=== PATIENT | female | born 1940 | race Caucasian/White ===

== ENCOUNTER → 2018-01-05 | Outpatient (CLI) | payer MEDICARE, OTHER ==
[2014-10-05 17:07] VITALS: BMI 25.4
[~2018-01-05] MED LIST: ACET-2031 PO; ADV230RPT INH; ALBU8.5H IH; ALPR-429 PO; ALPR-460 PO; AMLO-104 PO; AMLO-105 PO; AZIT-17 PO; BENA20TA3 PO; CALC-10 PO; CALC-488 PO; CALC500T6 PO; ESOM40CA42 PO; FLUO-202 PO; FLUT1DIS28 IH; GUAI600T57 PO; IPRA3AMP21 IH; IPRA4AER IH; LEVO-3 PO; LEVO-85 PO; LEVO100T95 PO; LEVO750T44 PO; MULT-865 PO; MULT-885 PO; OLME1TAB57 PO; OLME1TAB60 PO; OXYGENHOME INH; PRED-1 PO; PRED20TA6 PO; Sucralfate PO; TIO18R INH; TRIA-20 PO; areds; occuvite PO
[2018-01-05 12:27] LABS: PLATELET COUNT, AUTOMATED 233 K/uL (150-450)
== END ==
LOC: LAB 11:49
PROVIDERS: ATTEND Emergency Medicine
DX: D72.821 Monocytosis (symptomatic) (principal); E78.5 Hyperlipidemia, unspecified; E21.3 Hyperparathyroidism, unspecified; E83.52 Hypercalcemia; I12.9 Hypertensive chronic kidney disease with stage 1 through stage 4 chronic kidney disease, or unspecified chronic kidney disease; N18.3 Chronic kidney disease, stage 3 (moderate)
CPT/HCPCS: 36415; 82306; 82310; 82374; 82435; 82465; 82565; 82947; 83718; 83970; 84132; 84295; 84478; 84520; 85025

== ENCOUNTER → 2018-01-16 | Outpatient (CLI) | payer MEDICARE, OTHER ==
[2014-10-05 17:07] VITALS: BMI 25.4
[~2018-01-16] MED LIST changes: +UMEC62.5 INH
--- NOTE | 2018-01-16 12:13 | RADIOLOGY IMAGING REPORT ---
FACILITY: [facility] PATIENT NAME: Leigh De La Rosa : 1940 MR: [id number] V: [id number] EXAM DATE: ORDERING PHYSICIAN: GRACE TERRAZAS TECHNOLOGIST: Location: [facility] Patient: Leigh De La Rosa : 1940 Visit/Account:[id number] Date of Sevice: 01/16/2018 DEXA Scan Clinical history: Postmenopausal estrogen deficiency. Comparison: None available. LUMBAR SPINE: The bone mineral density (BMD) measured from L2 and L4 correlates with a Z-score 6.6 and a T-score of 5.1 which is Normal as defined by the World Health Organization. The corresponding risk of fracture in the lumbar spine is Not increased compared with a young adult reference population. HIP: Bone mineral density (BMD) measured in the Left total hip region correlates with a Z-score 1.7 and a T-score of 0.1 which is Normal as defined by the World Health Organization. The corresponding risk o f fracture in the hip is Not increased compared with a young adult reference population. T score le ft femoral neck -0.2 Bone mineral density (BMD) measured in the Femoral Neck region measures 1.011 g/cm2. Impression: 1. Lumbar spine: Normal. 2. Left Hip: Normal. 3. Femoral Neck: Bone Mineral Density is 1.011 g/cm2 The next DEXA scan of this patient should include the following sites: L1-L4 and the left hip. FRAX? WHO Fracture Risk Assessment Tool link: <http://www.shef.ac.uk/FRAX/tool.jsp?locationValue=9> PLEASE NOTE: 1) The World Health Organization defines low BMD as follows: T-score Normal > -1 Osteopenia < -1 and > -2.5 Osteoporosis < -2.5 without fractures Established osteoporosis < -2.5 with fractures 2) In general, you may wish to consider: Diagnosis Treatment Follow-up DEXA Normal BMD Prevention 2-3 years Osteopenia Prevention/therapy 1-2 years Osteoporosis Therapy Yearly 3) Fracture risk estimated from the T-score is more accurate for vertebral fractures (often spontane ous) than for hip fractures. Report Dictated By: Sharri Phillips MD at 01/16/2018 12:07 PM Report E-Signed By: Sharri Phillips MD at 01/16/2018 12:08 PM WSN:[email or web address]
== END ==
LOC: RAD 06:53
PROVIDERS: ATTEND Emergency Medicine
DX: Z13.820 Encounter for screening for osteoporosis (principal); Z78.0 Asymptomatic menopausal state
CPT/HCPCS: 77080

== ENCOUNTER → 2018-01-26 | Outpatient (CLI) | payer MEDICARE, OTHER ==
[2014-10-05 17:07] VITALS: BMI 25.4
[~2018-01-26] MED LIST changes: +BENA40TA52 PO
== END ==
LOC: LAB 11:34
PROVIDERS: ATTEND Emergency Medicine
DX: Z86.39 Personal history of other endocrine, nutritional and metabolic disease (principal)
CPT/HCPCS: 36415; 82310

== ENCOUNTER 2018-02-26 16:52 | Inpatient (IN) | payer MEDICARE, OTHER ==
[~2018-02-26] VITALS: Ht 162.6 cm; Wt 83.0 kg
[~2018-02-26 16:52] MED LIST changes: -VIT1CAPS34 PO
--- NOTE | 2018-02-26 17:20 | ER Report ---
History and Physical Time Seen By MD: 17:19 Hx. of Stated Complaint: PATIENT WAS SEEN OFFICE TODAY FOR REGULAR CHECK-UP, PATIET HAS HAD INCREASED SHORTNESS OF BREATH, THEY MAYA BLOOD AND HER TROPONIN WAS ELEVATED, FIRST ONE AT 1100 WAS .044, THEN THEY REDREW IT AT 1512 AND IT WAS 0.046. THEY DID A CTA LOOKING FOR PE, BUT IT WAS NEGATIVE WELL. PT WAS SENT OVER DUE TO ELEVATED TROPONIN. HPI/ROS CHIEF COMPLAINT: Shortness of breath, indeterminate troponin HISTORY OF PRESENT ILLNESS: 77-year-old female patient possessed emergency room with complaint of shortness of breath and indeterminate troponins. Patient was seen by her primary care provider today for complaint of shortness of breath. She states is been going on for the past 4 months. She states seemed to improve when she was in [place], however since she's returned it has worsened. Patient denies any fevers, chills, nausea, vomiting or diarrhea. When she was seen by her primary care provider today she did lab work, CBC, CMP, d-dimer, troponin. D -dimer came back at 1.5, troponin was 0.044. CT pulmonary angiogram and was done which was negative, EKG showed no significant change, the results of the pulmonary angiogram showed no acute cardiopulmonary processes, no pulmonary emboli. Patient was referred to the emergency room for further evaluation. REVIEW OF SYSTEMS: Respiratory: As noted above Cardiovascular: No chest pain, no palpitations. Gastrointestinal: No vomiting, no abdominal pain. Musculoskeletal: No back pain. Allergies: Coded Allergies: NSAIDS (Non-Steroidal Anti-Inflamma (Verified Adverse Reaction, Unknown, Pt does not take NSAIDS, 02/26/18) PT HAS HISTORY OF GASTRIC ULCERS. Home Meds Active Scripts Benazepril Hcl (BENAZEPRIL HCL) 40 Mg Tablet, 40 MG PO QDAY, #5 TAB 0 Refills Prov:GRACE TERRAZAS MD 02/25/18 Fluoxetine Hcl (PROZAC) 20 Mg Capsule, 20 MG PO QDAY, #90 CAPSULE 1 Refill Prov:GRACE TERRAZAS MD 02/03/18 Alprazolam (ALPRAZOLAM) 0.5 Mg Tab.rapdis, 0.5 MG PO QAM for Anxiety MDD .5 mg for 60 Days, #60 TAB Prov:GRACE TERRAZAS MD 01/20/18 Umeclidinium [place] (Incruse Ellipta) 62.5 Mcg Blst.w.dev, 1 INH INH DAILY, #1 INH 11 Refills Prov:GRACE TERRAZAS MD 01/12/18 Albuterol Sulfate 90 Mcg/Act (PROAIR HFA 90 MCG/ACT) 8.5 Gm Hfa.aer.ad, 2 PUFF IH Q4-6H, #1 INHALER 11 Refills Prov:GRACE TERRAZAS MD 01/05/18 Fluticasone/Salmeterol (ADVAIR 250-50 DISKUS) 1 Each Disk.w.dev, 1 PUFF IH BID, #3 INH 3 Refills Prov:GRACE TERRAZAS MD 01/05/18 Reported Medications Vit A/Vit C/Vit E/Zinc/Copper (PRESERVISION AREDS SOFTGEL) 1 Each Capsule, 1 EACH PO DAILY, CAPSULE 02/26/18 Oxygen (OXYGEN) Inha, 2 L INH, L 11/21/17 Levothyroxine Sodium (LEVOTHYROXINE SODIUM) 100 Mcg Tablet, 100 MCG PO QDAY, TAB 06/04/17 Discontinued Reported Medications [areds] No Conflict Check 11/21/17 Multivitamin (DAILY MULTIPLE VITAMIN) 1 Each Tablet, 1 TAB PO DAILY 06/04/17 Past Medical/Surgical History Patient has a past medical history of hypertension, oxygen night, pneumonia, ulcers, GI bleed, arthritis, back pain, hypothyroidism, alcohol use, depression , cancer, radiation treatment for cancer. Patient has surgical history of appendectomy, hysterectomy, tubal ligation, tonsillectomy, lumpectomy, parathyroidectomy. Reviewed Nurses Notes: Yes Hx Smoking: Yes Smoking Status: Current: Every Day Smoker, Current: Some Days Smoker Exposure to Second Hand Smoke?: No Hx Substance Use Disorder: No Hx Alcohol Use: Yes Constitutional Vital Sign - Last 24 Hours 02/26/18 02/26/18 02/26/18 02/26/18 17:03 17:07 17:08 17:19 Pulse 105 100 Resp 28 B/P (MAP) 167/109 183/90 (121) Pulse Ox 94 95 O2 Flow Rate 2.0 02/26/18 02/26/18 02/26/18 02/26/18 17:22 17:30 17:37 17:45 Pulse 87 80 B/P (MAP) 179/90 (119) 175/89 (117) Pulse Ox 91 92 02/26/18 02/26/18 02/26/18 02/26/18 17:52 18:00 18:07 18:15 Pulse 84 82 B/P (MAP) 176/93 (120) 175/90 (118) Pulse Ox 92 92 02/26/18 02/26/18 02/26/18 02/26/18 18:30 18:37 18:45 18:50 Pulse 85 81 B/P (MAP) 181/95 (123) 183/98 (126) Pulse Ox 94 94 02/26/18 02/26/18 02/26/18 02/26/18 19:00 19:20 19:35 19:50 Pulse 90 82 81 B/P (MAP) 192/108 (136) Pulse Ox 91 93 94 02/26/18 02/26/18 19:55 20:00 Pulse 80 81 B/P (MAP) ???/??? (1665) Pulse Ox 93 92 Physical Exam General Appearance: The patient is alert, has no immediate need for airway protection and no current signs of toxicity. Respiratory: Chest is non tender, lungs are clear to auscultation. Cardiac: regular rate and rhythm Gastrointestinal: Abdomen is soft and non tender, no masses, bowel sounds normal. Musculoskeletal: Neck: Neck is supple and non tender. Extremities have full range of motion and are non tender. Skin: No rashes or lesions. DIFFERENTIAL DIAGNOSIS: After history and physical exam differential diagnosis was considered for shortness of breath including but not limited to pulmonary infectious process, COPD, asthma, pulmonary embolus and congestive heart failure. Medical Decision Making Data Points Laboratory Hematology Test 02/26/18 17:14 Troponin I 0.048 ng/ml B-Type Natriuretic Peptide 650 pg/ml (0-100) Chemistry Test 02/26/18 17:14 Troponin I 0.048 ng/ml B-Type Natriuretic Peptide 650 pg/ml (0-100) ED Course/Re-evaluation ED Course Patient was admitted and examined, history and physical were obtained. Differential diagnoses were considered. On examination lungs are clear, heart was regular, patient had no edema to her ankles. A repeat troponin, BNP and EKG were done. EKG was on change from previous EKG today. Troponin did come back slightly elevated, 0.048. BNP was elevated at 630. I did discuss the case with Dr. Frias, otr company driver at [facility], we reviewed the patient's vital signs, her laboratory results, her CT pulmonary angiogram as well as her EKG. He felt that the patient would be best served with an admission, monitoring overnight with echo done in the morning. Hopefully at that time she would be discharged home. I discussed the case with Dr. Rossana Foster, hospitalist, we reviewed the lab work, her vital signs. She felt that the BNP was most concerning of the lab results, feeling that the troponin was statistically unchanged. However felt that the patient could be admitted if she would prefer. I discussed this with the patient, patient did ultimately agree that she should be admitted. I discussed this with Dr. Foster, who agreed to accept the patient for admission. Diagnosis will be elevated BNP. Decision to Disposition Date: Feb 26, 2018 Decision to Disposition Time: 20:25 Depart Departure Latest Vital Signs Vital Signs Date Time Temp Pulse Resp B/P (MAP) Pulse Ox O2 Delivery O2 Flow Rate FiO2 02/26/18 20:00 81 ???/??? (1665) 92 02/26/18 17:08 2.0 02/26/18 17:03 28 Impression: Primary Impression: Elevated brain natriuretic peptide (BNP) level Additional Impression: Hypertension Condition: Condition Unchanged Disposition: Admitted from ER Referrals: GRACE TERRAZAS MD (PCP) Problem Qualifiers Additional Impression: Hypertension Hypertension type: essential hypertension Qualified Codes: I10 - Essential ( primary) hypertension ROB RIVERO [facility] Feb 26, 2018 17:20
--- NOTE | 2018-02-26 17:56 | EKG ---
FACILITY: [facility] [place] PATIENT NAME: LIEN FRANKLIN : [id number] MR: [id number] V: [id number] EXAM DATE: ORDERING PHYSICIAN: ROB RIVERO TECHNOLOGIST: [place] Test Reason : SOB Blood Pressure : / mmHG Vent. Rate : 083 BPM Atrial Rate : 083 BPM P-R Int : 144 ms QRS Dur : 090 ms QT Int : 388 ms P-R-T Axes : 059 -72 068 degrees QTc Int : 455 ms Normal sinus rhythm Possible Left atrial enlargement Left axis deviation Septal infarct , age undetermined Abnormal ECG When compared with ECG of 26-FEB-2018 10:01, premature supraventricular complexes are no longer present Confirmed by JAVIER VENEGAS ([id number]) on 02/27/2018 6:27:13 AM Referred By: MAT Confirmed By:JAVIER VENEGAS
[2018-02-26] MEDS ORDERED: VIT1CAPS34 PO (20:14)
[2018-02-26] MEDS ORDERED: INFLUENZA VIRUS VAC 0.5 ML SYR IM ONLY ONE (20:40)
[2018-02-26] MEDS ORDERED: ALBUTEROL 2.5 MG/3 ML NEB NEB PRN (20:40)
[2018-02-26 20:45] VITALS: BP 193/101
[2018-02-26 21:11] VITALS: BP 194/92
[2018-02-26] MEDS ORDERED: NS(*) 0.9% 1000 ML BAG 1,000 ML IV PRN (21:20)
[2018-02-26] MEDS: ALBUTEROL/IPRATROPIUM 3 ML NEB NEB SCH (21:45)
[2018-02-26] MEDS: DILTIAZEM SR 60 MG CAPCR PO ONE ×2 (21:45→22:30)
[2018-02-26] MEDS: SALMETEROL/FLUTIC 250/50 1 INH INH SCH (21:50)
--- NOTE | 2018-02-26 22:09 | History & Physical ---
History of Present Illness Chief Complaint The patient is a 77 year old female with PMH significant for COPD with severe obstructive defect by PFTs in 2016 who presents with increased shortness of breath for the past 24-48hours. History of Present Illness The patient is a current smoker. She is on multiple medications for her COPD. She did participate in pulmonary rehabilitation in 2016. Pre rehab PFTs showed an FEV1 of .66. She had been on oxygen 2L at HS only but about 4 months ago had to increase it to 24 hours daily. Her shortness of breath has worsened over the past 24-48 hours. The patient denies fever, chills or cough. She had a URI at the end of 2017 and was treated with Levaquin and steroids. Those symptoms resolved but she remained on oxygen /. She notes that with the shortness of breath her chest has felt tight and she has had difficulty getting air in and out. She has been wheezing more. She does have risk factors for CAD including +FH, smoking, HTN and hyperlipidemia. She did have some LE edema but this resolved when she recently stopped taking amlodipine. Her BP has been high off of amlodipine and diuretics. Diuretics were stopped due to hypercalcemia. She has a history of hyperparathyroidism and is s/p parathyroidectomy. Her PCP is monitoring her calcium level which has improved off of calcium supplements and diuretics. The patient states she has not smoked for 2 days due to shortness of breath. She would like to quit smoking. She denies orthopnea or PND. She has not had palpitations, diaphoresis or nausea. History Problems: (1) Breast cancer Status: Resolved (2) Hyperlipidemia Status: Chronic (3) CKD (chronic kidney disease), stage III Status: Chronic (4) COPD (chronic obstructive pulmonary disease) Status: Chronic (5) H/O hyperparathyroidism Status: Chronic (6) Hypothyroidism Status: Chronic (7) Depression Status: Chronic (8) Anxiety Status: Chronic (9) Upper GI bleed Status: Chronic (10) Ulcer Status: Resolved (11) Hypertension Status: Chronic Home Meds Active Scripts Benazepril Hcl (BENAZEPRIL HCL) 40 Mg Tablet, 40 MG PO QDAY, #5 TAB 0 Refills Prov:GRACE SOLANO MD 02/25/18 Fluoxetine Hcl (PROZAC) 20 Mg Capsule, 20 MG PO QDAY, #90 CAPSULE 1 Refill Prov:GRACE SOLANO MD 02/03/18 Alprazolam (ALPRAZOLAM) 0.5 Mg Tab.rapdis, 0.5 MG PO QAM for Anxiety MDD .5 mg for 60 Days, #60 TAB Prov:GRACE SOLANO MD 01/20/18 Umeclidinium [place] (Incruse Ellipta) 62.5 Mcg Blst.w.dev, 1 INH INH DAILY, #1 INH 11 Refills Prov:GRACE SOLANO MD 01/12/18 Albuterol Sulfate 90 Mcg/Act (PROAIR HFA 90 MCG/ACT) 8.5 Gm Hfa.aer.ad, 2 PUFF IH Q4-6H, #1 INHALER 11 Refills Prov:GRACE SOLANO MD 01/05/18 Fluticasone/Salmeterol (ADVAIR 250-50 DISKUS) 1 Each Disk.w.dev, 1 PUFF IH BID, #3 INH 3 Refills Prov:GRACE SOLANO MD 01/05/18 Reported Medications Vit A/Vit C/Vit E/Zinc/Copper (PRESERVISION AREDS SOFTGEL) 1 Each Capsule, 1 EACH PO DAILY, CAPSULE 02/26/18 Oxygen (OXYGEN) Inha, 2 L INH, L 11/21/17 Levothyroxine Sodium (LEVOTHYROXINE SODIUM) 100 Mcg Tablet, 100 MCG PO QDAY, TAB 06/04/17 Discontinued Reported Medications [areds] No Conflict Check 11/21/17 Multivitamin (DAILY MULTIPLE VITAMIN) 1 Each Tablet, 1 TAB PO DAILY 06/04/17 Allergies: Coded Allergies: NSAIDS (Non-Steroidal Anti-Inflamma (Verified Adverse Reaction, Unknown, Pt does not take NSAIDS, 02/26/18) PT HAS HISTORY OF GASTRIC ULCERS. Patient History: FH: arthritis MOTHER, , Age:89 BROTHER OR SISTER BROTHER OR SISTER FH: breast cancer BROTHER OR SISTER FH: cancer FH: heart attack FATHER, , Age:73 MOTHER, , Age:89 FH: heart disease BROTHER OR SISTER Other Social/Family Hx The patient is and lives with her in [place]. She is a retired nurse. She has children but none of them live in [place]. Her has dementia and she cares for him. Hx Smoking: Yes Smoking Status: Current: Every Day Smoker, Current: Some Days Smoker Exposure to Second Hand Smoke?: No Caffeine Intake: Coffee Caffeine/Cups Per Day: 2-3 Hx Alcohol Use: Yes Hx Substance Use Disorder: No Social Drug Use: Never History of IV Drug Use: No Review of Systems All Systems Reviewed/Normal: Yes, Except as Noted Constitutional: No Fever Cardiovascular: No Chest Pain, No Palpitations Respiratory: Shortness of Breath, Wheezing, Other (Feels tight in chest with difficulty getting air in and out.), No Cough Gastrointestinal: No Nausea Psychiatric: Depression, Anxiety Exam Vital Signs Vital Signs Date Time Temp Pulse Resp B/P (MAP) Pulse Ox O2 Delivery O2 Flow Rate FiO2 02/26/18 21:11 81 194/92 (126) 91 Nasal Cannula 2.0 02/26/18 20:45 98.5 24 General Appearance: Alert, Awake, No Acute Distress, Afebrile Neuro: No Gross deficits Eyes: PERRLA Cardiovascular: Regular Rate and Rhythm Respiratory: Other (Markedly decreased BS in lower lung murillo with expiratory wheezes noted. ) GI: Abd Soft and Non-Tender (BS+) Lymph: Cervical Nodes Benign Extremities: Warm, Perfused, Other (No significant edema.) Psych: Alert & Oriented X3, Appropriate Mood & Affect Medical Decision Making Data Points Item Value Date Time D-Dimer Quantitative (PE/DVT) 1.05 ug/ml H 02/26/18 1100 Sodium Level 140 mmol/L 02/26/18 1100 Potassium Level 3.6 mmol/L 02/26/18 1100 Chloride Level 99 mmol/L 02/26/18 1100 Carbon Dioxide Level 31 mmol/L 02/26/18 1100 Blood Urea Nitrogen 21 mg/dl H 02/26/18 1100 Creatinine 1.10 mg/dl H 02/26/18 1100 Glomerular Filtration Rate Calc 48.2 02/26/18 1100 Random Glucose 96 mg/dl 02/26/18 1100 Calcium Level 10.3 mg/dl H 02/26/18 1100 Total Bilirubin 0.3 mg/dl 02/26/18 1100 Aspartate Amino Transf (AST/SGOT) 24 U/L 02/26/18 1100 Alanine Aminotransferase (ALT/SGPT) 23 U/L 02/26/18 1100 Alkaline Phosphatase 81 U/L 02/26/18 1100 Total Protein 6.4 gm/dl 02/26/18 1100 Albumin 3.7 g/dl 02/26/18 1100 Thyroid Stimulating Hormone (TSH) 0.55 uIU/ml 02/26/18 1100 Troponin I 0.044 ng/ml 02/26/18 1100 Troponin I 0.046 ng/ml 02/26/18 1512 Troponin I 0.048 ng/ml 02/26/18 1714 B-Type Natriuretic Peptide 650 pg/ml H 02/26/18 1714 White Blood Count 6.9 k/uL 02/26/18 1100 Red Blood Count 4.19 M/uL 02/26/18 1100 Hemoglobin 13.1 g/dL 02/26/18 1100 Hematocrit 38.7 % 02/26/18 1100 Mean Corpuscular Volume 92.2 fL 02/26/18 1100 Mean Corpuscular Hemoglobin 31.3 pg 02/26/18 1100 Mean Corpuscular Hemoglobin Concent 34.0 g/dL 02/26/18 1100 Red Cell Distribution Width 14.0 % 02/26/18 1100 Platelet Count 227 K/uL 02/26/18 1100 Mean Platelet Volume 9.5 fL 02/26/18 1100 Neutrophils (%) (Auto) 72.6 % H 02/26/18 1100 Lymphocytes (%) (Auto) 14.0 % L 02/26/18 1100 Monocytes (%) (Auto) 11.1 % 02/26/18 1100 Eosinophils (%) (Auto) 0.9 % 02/26/18 1100 Basophils (%) (Auto) 1.4 % 02/26/18 1100 Nucleated RBC Relative Count (auto) 0.0 /100WBC 02/26/18 1100 Neutrophils # (Auto) 5.0 K/uL 02/26/18 1100 Lymphocytes # (Auto) 1.0 K/uL L 02/26/18 1100 Monocytes # (Auto) 0.8 K/uL 02/26/18 1100 Eosinophils # (Auto) 0.1 K/uL 02/26/18 1100 Basophils # (Auto) 0.1 K/uL 02/26/18 1100 Nucleated RBC Absolute Count (auto) 0.00 K/uL 02/26/18 1100 EKG / Imaging EKG Interpretation FACILITY: [facility] [place] PATIENT NAME: LIEN DE LA ROSA : [id number] MR: [id number] V: [id number] EXAM DATE: ORDERING PHYSICIAN: ROB RIVERO TECHNOLOGIST: Test Reason : SOB Blood Pressure : / mmHG Vent. Rate : 083 BPM Atrial Rate : 083 BPM P-R Int : 144 ms QRS Dur : 090 ms QT Int : 388 ms P-R-T Axes : 059 -72 068 degrees QTc Int : 455 ms Normal sinus rhythm Possible Left atrial enlargement Left axis deviation Septal infarct , age undetermined Abnormal ECG When compared with ECG of 26-FEB-2018 10:01, premature supraventricular complexes are no longer present Referred By: MAT Confirmed By: [id number] T: / Imaging FACILITY: [facility] [place] PATIENT NAME: Lien De La Rosa : 1940 MR: [id number] V: [id number] EXAM DATE: ORDERING PHYSICIAN: GRACE SOLANO TECHNOLOGIST: Location: [facility] [place] Patient: Lien De La Rosa : 1940 Visit/Account:[id number] Date of Sevice: 02/26/2018 Exam type: CHEST PA AND LAT History: Dyspnea Comparison: October 27, 2017. Findings: Cardiac silhouette is borderline enlarged but unchanged. There is no evidence of acute appearing infiltrates, pleural effusions or overt pulmonary edema. No evidence of a pneumothorax or pneumomediastinum. There is S-shaped scoliosis of the thoracolumbar spine. IMPRESSION: 1. No acute cardiopulmonary process is seen Report Dictated By: Sharri Phillips MD at 02/26/2018 11:50 AM Report E-Signed By: Sharri Phillips MD at 02/26/2018 11:51 AM WSN:[id number] FACILITY: [facility] [place] PATIENT NAME: Lien De La Rosa : 1940 MR: [id number] V: [id number] EXAM DATE: ORDERING PHYSICIAN: GRACE SOLANO TECHNOLOGIST: Location: [facility] [place] Patient: Lien De La Rosa : 1940 Visit/Account:[id number] Date of Sevice: 02/26/2018 EXAMINATION: CTA of the chest with IV contrast HISTORY: Elevated d-dimer. Shortness of breath. TECHNIQUE: Pulmonary embolus protocol - Thin axial CT images of the chest were obtained with IV contrast during maximal pulmonary arterial opacification. Reconstruction of the source data includes multiplanar 2D coronal and sagittal reconstructed images, and 3D coronal and sagittal MIP images. Assistant Warehouse Manager images have been stored on PACS. One of the following dose optimization techniques was utilized in the performance of this exam: Automated exposure control; adjustment of the mA and/ or kV according to the patient's size; or use of an iterative reconstruction technique. Specific details can be referenced in the facility's radiology CT exam operational policy. Contrast: 75 mL of IV Isovue-370. COMPARISON: None. FINDINGS: Pulmonary arteries: The pulmonary arteries are well opacified, without suspicious filling defect. Heart, aorta, and great vessels: Normal caliber thoracic aorta. Vascular calcifications, including coronary artery calcifications. Normal heart size. No pericardial effusion. Lungs and pleura: Slight scarring or linear atelectasis in the right middle lobe and lingula. Calcified granuloma in the right upper lobe posteriorly. The lungs are otherwise clear. No abnormal pulmonary nodule, mass, or consolidation. The central airways are patent. No pleural effusion or pneumothorax. Mediastinum and robles: Negative. Visualized upper abdomen: Unremarkable. Chest wall: Bilateral breast implants with capsular calcification. There is lobulation along the medial medial margin of both implants which may represent chronic extracapsular rupture. Bones: Negative. IMPRESSION: 1. No evidence of pulmonary embolism. 2. No other acute findings in the chest. 3. Slight scarring or linear atelectasis in the right middle lobe and lingula. The lungs are otherwise clear. Report Dictated By: Jacobo Collier MD at 02/26/2018 2:45 PM Report E-Signed By: Jacobo Collire MD at 02/26/2018 2:55 PM WSN:[id number] Pre-Admit Course Medical Record Review: Yes Assessment and Plan Problems: (1) COPD with exacerbation Status: Acute Assessment & Plan: The patient was audibly wheezing during my interview. Will place on IV steroids. Will order Duonebs tid and albuterol nebs prn. Will continue Advair. She will have someone bring her Incruse Ellipta tomorrow. (2) Elevated brain natriuretic peptide (BNP) level Status: Acute Assessment & Plan: I suspect she has some pulmonary HTN and right heart failure with her severe COPD. Will order an echo for am. (3) Hypertension Status: Chronic Assessment & Plan: She had been on diuretics, amlodipine and benazepril. Her diuretics were stopped due to hypercalcemia. Her amlodipine was stopped due to LE edema. Her BP is quite high here. Will start Cardizem. (4) Anxiety Status: Chronic Assessment & Plan: Continue fluoxetine and prn alprazolam. (5) Depression Status: Chronic Assessment & Plan: Continue fluoxetine. (6) Hypothyroidism Status: Chronic Assessment & Plan: TSH is 0.55. Continue levothyroxine 100mcg daily. (7) CKD (chronic kidney disease), stage III Status: Chronic Assessment & Plan: Creatinine is elevated at 1.1. Monitor. (8) Hyperlipidemia Status: Chronic Assessment & Plan: She is not currently on treatment. Dr. Solano is following. Time Spent on Plan of Care: < 30 min Copies to: GRACE SOLANO MD Venous Thromboembolism VTE Risk Physician Assess for VTE Risk: Yes Patient's VTE Risk: Low VTE Diagnostic Test 2 Days Prior to Admit: Yes Antithrombotics Is Pt On Any Antithrombotics?: Yes Exam Sepsis Risk: No Definite Risk JAVIER SALAS MD Feb 26, 2018 22:09
[2018-02-26 22:30] VITALS: BP 165/75
[2018-02-26] MEDS: ALPRAZolam 0.5 MG TAB PO PRN (22:37)
[2018-02-26 22:38] VITALS: BP 170/62
[2018-02-27] VITALS (9 sets, daily range): BP systolic 152–196; BP diastolic 80–108; BMI 27.6
[2018-02-27] MEDS: methylPREDNIS SUCC 125 MG/2ML IVP SCH ×3 (01:18→16:28)
[2018-02-27] MEDS: ALBUTEROL/IPRATROPIUM 3 ML NEB NEB SCH ×3 (05:36→16:32)
[2018-02-27] MEDS: SALMETEROL/FLUTIC 250/50 1 INH INH SCH ×2 (05:36→16:32)
[2018-02-27] MEDS ORDERED: LEVOTHYROXINE SOD 0.1 MG TAB PO SCH (06:00)
[2018-02-27] MEDS ORDERED: FLUoxetine HCL 20 MG CAP PO SCH (09:00)
[2018-02-27] MEDS ORDERED: BENAZEPRIL HCL 20 MG TAB PO SCH (09:00)
[2018-02-27] MEDS ORDERED: ENOXAPARIN 40 MG/0.4ML SYR SC SCH (09:00)
--- NOTE | 2018-02-27 10:00 | Hospitalist Progress Note ---
Subjective Progress Notes Subjective She reports less dyspnea and some improvement in activity tolerance. Physical Exam Vital Signs Date Time Temp Pulse Resp B/P (MAP) Pulse Ox O2 Delivery O2 Flow Rate FiO2 02/27/18 07:30 92 Nasal Cannula 3.0 02/27/18 07:30 98.6 88 16 182/90 (120) General Appearance: Alert, Awake Cardiovascular: Regular Rate and Rhythm Respiratory: Other (bilaterally expiratory wheezes with prolonged expiratory phase) Extremities: Warm, Perfused, Edema (trace pedal/ankle edema) Psych: Alert & Oriented X3 Assessment and Plan Problems: (1) COPD with exacerbation Status: Acute Assessment & Plan: She is improved somewhat on IV steroids, DuoNeb and albuterol. Will continue Advair. She will have someone bring her Incruse Ellipta. We also discussed tobacco cessation and she states she is now committed to quitting. (2) Elevated brain natriuretic peptide (BNP) level Status: Acute Assessment & Plan: I suspect she has some pulmonary HTN and right heart failure with her severe COPD. Echocardiogram today. (3) Hypertension Status: Chronic Assessment & Plan: She had been on diuretics, amlodipine and benazepril. Her diuretics were stopped due to hypercalcemia. Her amlodipine was stopped due to LE edema. Will monitor on the benazepril and modify as needed. (4) Anxiety Status: Chronic Assessment & Plan: Continue fluoxetine and alprazolam. (5) Depression Status: Chronic Assessment & Plan: Continue fluoxetine. (6) Hypothyroidism Status: Chronic Assessment & Plan: TSH is 0.55. Continue levothyroxine 100mcg daily. (7) CKD (chronic kidney disease), stage III Status: Chronic Assessment & Plan: Creatinine was slightly elevated at 1.1. Monitor. (8) Hyperlipidemia Status: Chronic Assessment & Plan: She is not currently on treatment. Dr. Solano is following. Exam Sepsis Risk: No Definite Risk TAM SALAS MD Feb 27, 2018 10:00
[2018-02-27] MEDS: ALPRAZolam 0.5 MG TAB PO PRN (21:23)
[2018-02-28] VITALS (76 sets, daily range): BP systolic 117–165; BP diastolic 58–99
[2018-02-28] MEDS: methylPREDNIS SUCC 125 MG/2ML IVP SCH ×3 (01:08→16:43)
[2018-02-28] MEDS ORDERED: MIDAZOLAM 2 MG/2 ML VIAL IVP ONE ×2 (04:12→05:10)
[2018-02-28] MEDS ORDERED: SUCCINYLCHOL CHL 200MG/10ML VL IVP ONE (04:13)
--- NOTE | 2018-02-28 04:37 | ER Inpatient Procedure ---
Inpatient Procedure Responded to code blue. Patient was found down in the bathroom after having a rapid heart rate noted by nurse. CPR was initiated by nursing staff and in progress on my arrival to the floor. Patient was ashen colored on the bathroom floor. Patient was removed from the bathroom and placed on the bed. At that time. There seemed to be some purposeful movement in her arms and legs. I asked the nurses to check for a pulse and a pulse was found. Patient was then placed on 100% nonrebreather mask. And she was bagged with assistance to her spontaneous respirations. Her saturations clara slowly from in the low 20s up to 90%. She was placed on the motor builder winder, noted to have a rhythm in the 140s. Blood pressure was performed and noted to be 156/96. Patient was suctioned out. She continued to have a spontaneous rhythm that clara to the 180s almost 200s. She remained unresponsive. Patient was given Versed 2 mg and succinylcholine 120 mg IV push. She was then intubated with a #7.5 ET tube. On the 3rd attempt. Good placement was noted with good color change and vapor return in the tube. Good lung sounds were auscultated bilaterally. A portable chest x-ray was performed which showed good placement of the ET tube. Care was turned over to Dr. Syed Foster. DAXA DUMONT DO Feb 28, 2018 04:37
[2018-02-28] MEDS ORDERED: PROPOFOL(*)1000 MG/100 ML VIAL 100 ML ONE (04:45)
[2018-02-28] MEDS ORDERED: ADENOSINE IV SOLN 3 MG/ML SYR ONE ×2 (04:50)
[2018-02-28 04:58] LABS: PLATELET COUNT, AUTOMATED 268 K/uL (150-450)
--- NOTE | 2018-02-28 05:03 | RADIOLOGY IMAGING REPORT ---
FACILITY: [facility] PATIENT NAME: Leigh De La Rosa : 1940 MR: [id number] V: [id number] EXAM DATE: ORDERING PHYSICIAN: TAM SALAS TECHNOLOGIST: Location: [facility] [place] Patient: Leigh De La Rosa : 1940 Visit/Account:[id number] Date of Sevice: 02/28/2018 CHEST SINGLE AP 02/28/2018 04:23 hours. HISTORY: Intubation. COMPARISON: 02/26/2018 and studies dating to 09/17/2013. TECHNIQUE: Portable AP view of the chest. FINDINGS: Tubes/lines/hardware: There are external chest leads. Endotracheal tube has been placed and terminate s 4.5 cm above the pablo. There are surgical clips at the right side of the neck and right upper [address] [address]. Pulmonary: There are bilateral densities due to overlying breast implants. There is minimal linear at electasis or scarring at the left base. Right lung is clear. There is no pneumothorax or pleural effu melisa. Cardiomediastinal: Cardiac silhouette is within normal limits. The fullness of the right paratracheal soft tissues is unchanged from parachute supervisor view of the chest CT and is due to normal vessels. There is mil d aortic calcification. Bones/soft tissues: No acute osseous abnormality. The visible abdomen is normal. IMPRESSION: 1. ET tube is in good position. 2. Minimal linear atelectasis or scarring at the left base. Report Dictated By: Annabel Parmar at 02/28/2018 4:54 AM Report E-Signed By: Annabel Parmar at 02/28/2018 4:59 AM WSN:[id number]
[2018-02-28] MEDS ORDERED: SUCCINYLCHOL CHL 100MG/5ML SYR IVP ONE (05:10)
--- NOTE | 2018-02-28 05:11 | Hospitalist Progress Note ---
Subjective Progress Notes Subjective Nursing reports patient was up to BR this AM. She had become more dyspneic. While she was in BR her HR was elevated into 150 bpm range. She then became unresponsive. She was felt to be without a pulse and David London was called. She did receive rescue breathing and chest compressions for a short time. Once on the monitor, she was found to be in a narrow complex supraventricular rhythm. She did have a pulse and was actually hypertensive. She was intubated. Physical Exam Vital Signs Date Time Temp Pulse Resp B/P (MAP) Pulse Ox O2 Delivery O2 Flow Rate FiO2 02/28/18 03:29 98.5 89 18 159/90 (113) 90 Nasal Cannula 2.0 General Appearance: Other (sedated on ventilator) Neuro: Other (she did begin to move all four extremities after intubation) Eyes: PERRLA ENT: Other (ET tube in place) Cardiovascular: Other (Tachycardic regular) Respiratory: Other (wheezes bilaterally) GI: Other (soft/BS present) Extremities: Warm, Perfused Assessment and Plan Problems: (1) Cardiorespiratory arrest Status: Acute Assessment & Plan: It appears she may have had arrest secondary to either SVT or her underlying COPD/acute exacerbation. She has been transferred to the ICU. Will continue intubated/mechanically ventilated. Will use sedation as needed. Will check labs, CXR, follow ABG closely. Will also manage her SVT. (2) Supraventricular tachycardia Status: Acute Assessment & Plan: She has been in SVT throughout the code. We did convert to sinus rhythm with rates in 100 bpm range with adenosine 6mg IV. Question if this was the cause of the acute decompensation or a result of her acute respiratory problems. Will monitor closely in ICU. Check labs including electrolytes, troponin, d-dimer. (3) COPD with exacerbation Status: Acute Assessment & Plan: She seemed to be improved somewhat until the acute episode this AM. She is now intubated. Will continue the steroids, respiratory treatments (with some modifications). (4) Elevated brain natriuretic peptide (BNP) level Status: Acute Assessment & Plan: She has some pulmonary HTN with preserved EF (prelim report ) on echocardiogram done yesterday. (5) Hypertension Status: Chronic Assessment & Plan: She had been on diuretics, amlodipine and benazepril. Her diuretics were stopped due to hypercalcemia. Her amlodipine was stopped due to LE edema. Will monitor on the benazepril and modify as needed. (6) Anxiety Status: Chronic Assessment & Plan: She has been on chronic fluoxetine and alprazolam. (7) Depression Status: Chronic Assessment & Plan: She has been on the fluoxetine. (8) Hypothyroidism Status: Chronic Assessment & Plan: TSH is 0.55. Continue levothyroxine. Will switch to IV form now that she is intubated. (9) CKD (chronic kidney disease), stage III Status: Chronic Assessment & Plan: Creatinine was slightly elevated at 1.1 at the time of admission. Monitor. (10) Hyperlipidemia Status: Chronic Assessment & Plan: She is not currently on treatment. Dr. Solano is following. Exam Sepsis Risk: No Definite Risk TAM SALAS MD Feb 28, 2018 05:11
[2018-02-28] MEDS: NS(*) 0.9% 1000 ML BAG 1,000 ML IV PRN ×4 (05:24→17:47)
[2018-02-28] MEDS: LEVALBUTEROL 1.25 MG/3 ML NEB NEB SCH ×4 (05:59→17:20)
--- NOTE | 2018-02-28 06:29 | EKG ---
FACILITY: [facility] [place] PATIENT NAME: LIEN FRANKLIN : [id number] MR: [id number] V: [id number] EXAM DATE: ORDERING PHYSICIAN: TAM SALAS TECHNOLOGIST: IVANNA Test Reason : SVT Blood Pressure : / mmHG Vent. Rate : 152 BPM Atrial Rate : 152 BPM P-R Int : 120 ms QRS Dur : 088 ms QT Int : 322 ms P-R-T Axes : 000 -66 083 degrees QTc Int : 511 ms Sinus tachycardia Left axis deviation Septal infarct (cited on or before 26-FEB-2018) Abnormal ECG When compared with ECG of 26-FEB-2018 17:45, Vent. rate has increased BY 69 BPM Confirmed by JAVIER VENEGAS ([id number]) on 02/28/2018 10:28:34 PM Referred By: Confirmed By:JAVIER VENEGAS
--- NOTE | 2018-02-28 06:33 | EKG ---
FACILITY: [facility] PATIENT NAME: LIEN FRANKLIN : [id number] MR: [id number] V: [id number] EXAM DATE: ORDERING PHYSICIAN: TAM SALAS TECHNOLOGIST: IVANNA Test Reason : S/P SVT Blood Pressure : / mmHG Vent. Rate : 078 BPM Atrial Rate : 078 BPM P-R Int : 146 ms QRS Dur : 096 ms QT Int : 402 ms P-R-T Axes : 072 -32 085 degrees QTc Int : 458 ms Normal sinus rhythm Left axis deviation Nonspecific ST and T wave abnormality Abnormal ECG When compared with ECG of 28-FEB-2018 04:45, Vent. rate has decreased BY [address] no longer depressed in Anterior leads Confirmed by JAVIER VENEGAS ([id number]) on 02/28/2018 10:28:05 PM Referred By: Confirmed By:JAVIER VENEGAS
[2018-02-28] MEDS: ENOXAPARIN 100 MG/ML SYR SC SCH ×2 (06:37→18:26)
[2018-02-28] MEDS: cefTRIAXone 1 GM VIAL IVP SCH (06:37)
--- NOTE | 2018-02-28 07:13 | RADIOLOGY IMAGING REPORT ---
FACILITY: [facility] [place] PATIENT NAME: Leigh De La Rosa : 1940 MR: [id number] V: [id number] EXAM DATE: ORDERING PHYSICIAN: TAM SALAS TECHNOLOGIST: Location: [facility] [place] Patient: Leigh De La Rosa : 1940 Visit/Account:[id number] Date of Sevice: 02/28/2018 Portable chest: Indication: Tube placement. Technique: A single frontal film was obtained. Comparison: 02/28/2018 Lines and tubes: A nasogastric tube is now in the stomach. The ET tube remains in satisfactory positi on. Skeletal and soft tissue structures: Intact and unchanged. Heart and mediastinum: Stable. Lung murillo: Well-expanded. No new focal opacities. Pleural spaces: No evidence of pneumothorax or significant effusion. Impression: The NG tube is in satisfactory position. The chest is otherwise unchanged. Report Dictated By: Paulo Hamilton MD at 02/28/2018 7:06 AM Report E-Signed By: Paulo Hamilton MD at 02/28/2018 7:08 AM WSN:[id number]
[2018-02-28] MEDS ORDERED: MIDAZOLAM 50 MG/10 ML 1ML VIAL 100 MG in NS(*) 0.9% 100 ML BAG 80 ML IV PRN (07:25)
[2018-02-28] MEDS: PROPOFOL(*)1000 MG/100 ML VIAL 100 ML IV PRN ×4 (07:51→22:08)
[2018-02-28] MEDS ORDERED: LEVOTHYROXINE SOD 100 MCG VIAL IVP ONE (09:00)
[2018-02-28] MEDS ORDERED: ACETAMINOPHEN(*)1000 MG/100 ML 100 ML IVPB SCH ×2 (18:35→21:00)
[2018-02-28] MEDS: SUCRALFATE 1 GM TAB PO SCH (20:11)
[2018-02-28] MEDS: PANTOPRAZOLE SOD 40 MG IV VIAL IVP SCH (20:17)
[2018-02-28 20:22] LABS: PLATELET COUNT, AUTOMATED 169 K/uL (150-450)
[2018-02-28] MEDS: ORAL SUCTION/CHLORHX/SWAB KIT MT SCH (21:11)
--- NOTE | 2018-02-28 21:11 | Miscellaneous Provider Note ---
Miscellaneous Provider Note Note Called by nursing staff. Patient had 300cc dark red blood from NG on repositioning. Repeat CBC ordered and Hgb noted to drop from 13.3 to 11. Patient typed and crossed for PRBCs and FFP. Lovenox stopped. Protonix and Carafate ordered. Her VSS currently. Her son was notified of change in status and gave permission for blood products. He notes she does have past history of peptic ulcer disease. Continue to monitor closely in ICU. Surgery notified to know about the patient and will officially consult if needed. JAVIER SALAS MD Feb 28, 2018 21:11
[2018-02-28] MEDS ORDERED: ADENOSINE IV SOLN 3 MG/ML SYR IVP ONE (22:10)
[2018-02-28] MEDS: ACETAMINOPHEN(*)1000 MG/100 ML 100 ML IVPB SCH (23:15)
[2018-03-01] VITALS (50 sets, daily range): BP systolic 126–169; BP diastolic 57–98; Ht 162.6 cm; Wt 83.0 kg
[2018-03-01 00:09] LABS: PLATELET COUNT, AUTOMATED 166 K/uL (150-450)
[2018-03-01] MEDS: SUCRALFATE 1 GM TAB PO SCH ×4 (02:06→20:14)
[2018-03-01] MEDS ORDERED: ACETAMINOPHEN(*)1000 MG/100 ML 100 ML IVPB SCH (03:00)
[2018-03-01] MEDS: PROPOFOL(*)1000 MG/100 ML VIAL 100 ML IV PRN ×5 (03:36→21:32)
[2018-03-01] MEDS: ACETAMINOPHEN(*)1000 MG/100 ML 100 ML IVPB SCH ×4 (05:21→23:07)
[2018-03-01] MEDS: methylPREDNIS SUCC 125 MG/2ML IVP SCH ×2 (05:21→17:23)
[2018-03-01] MEDS: cefTRIAXone 1 GM VIAL IVP SCH (05:22)
[2018-03-01 05:48] LABS: PLATELET COUNT, AUTOMATED 160 K/uL (150-450)
[2018-03-01] MEDS: LEVALBUTEROL 1.25 MG/3 ML NEB NEB SCH ×4 (06:00→18:18)
--- NOTE | 2018-03-01 06:32 | RADIOLOGY IMAGING REPORT ---
FACILITY: [facility] PATIENT NAME: Leigh De La Rosa : 1940 MR: [id number] V: [id number] EXAM DATE: ORDERING PHYSICIAN: JAVIER SALAS TECHNOLOGIST: Location: [facility] [place] Patient: Leigh De La Rosa : 1940 Visit/Account:[id number] Date of Sevice: 03/01/2018 Portable chest: Indication: Respiratory insufficiency. Technique: A single frontal film was obtained. Comparison: 02/28/2018 Lines and tubes: Remain in satisfactory position. Skeletal and soft tissue structures: Intact and unchanged. Heart and mediastinum: Stable. Lung murillo: Unchanged, allowing for technical differences. Pleural spaces: No evidence of pneumothorax or significant effusion. Impression: No acute interval change. Report Dictated By: Paulo Hamilton MD at 03/01/2018 6:27 AM Report E-Signed By: Paulo Hamilton MD at 03/01/2018 6:28 AM WSN:[id number]
[2018-03-01] MEDS ORDERED: FUROSEMIDE 40 MG/4 ML VIAL IVP ONE (08:00)
[2018-03-01] MEDS: PANTOPRAZOLE SOD 40 MG IV VIAL IVP SCH ×2 (08:30→20:15)
[2018-03-01] MEDS: ORAL SUCTION/CHLORHX/SWAB KIT MT SCH ×2 (08:31→20:16)
--- NOTE | 2018-03-01 09:20 | Hospitalist Progress Note ---
Subjective Progress Notes Subjective This patient has remained in the ICU secondary to COPD and pulseless arrest. She had no acute events overnight. Patient Complains of: Cardiovascular: No: Chest Pain Respiratory: No: Shortness of Breath Physical Exam Vital Signs Date Time Temp Pulse Resp B/P (MAP) Pulse Ox O2 Delivery O2 Flow Rate FiO2 03/01/18 07:59 45.0 03/01/18 06:30 61 18 140/75 (96) 93 Mechanical Ventilator 03/01/18 04:00 97.2 02/28/18 03:29 2.0 Neuro: No Gross deficits (Sedated to RASS -3.) Eyes: PERRLA Cardiovascular: Regular Rate and Rhythm Respiratory: Other (Bilateral breath sounds present.) GI: Soft and Non-Tender Extremities: No Edema Integumentary: No Cyanosis Result Diagram: 03/01/1850903/01/18509 Item Value Date Time Arterial Blood pH 7.43 03/01/18512 Arterial Blood Partial Pressure CO2 42 mmHg H 03/01/18512 Arterial Blood Partial Pressure O2 75 mmHg 03/01/18512 Arterial Blood HCO3 28 mmol/L H 03/01/18512 Imaging Chest x-ray reviewed. Assessment and Plan Problems: (1) COPD with exacerbation Status: Acute Assessment & Plan: She does have a history of severe COPD and presented with increased shortness of breath. Her Chest x-rays have been negative for an infiltrate. She is on treatment with nebulizers, IV corticosteroids, and ceftriaxone. (2) Acute respiratory failure Assessment & Plan: She was intubated on 02/28/18 during a code. She is receiving versed and propofol for sedation. This morning she is not overbreathing the ventilator. We will plan to wean her sedation and perform CPAP trials through today. (3) Cardiorespiratory arrest Status: Acute Assessment & Plan: She did suffer a pulseless arrest on 02/28/18. This was likely secondary to SVT. (4) Supraventricular tachycardia Status: Acute Assessment & Plan: She was noted to be in a narrow complex tachycardia during her code event. She converted to sinus rhythm after receiving adenosine. Her rate has been normal since. (5) Hypertension Status: Chronic Assessment & Plan: She had been on diuretics, amlodipine and benazepril. These have all been on hold and her blood pressures are only mildly elevated. (6) Anxiety Status: Chronic Assessment & Plan: She has been on chronic fluoxetine and alprazolam. (7) Depression Status: Chronic Assessment & Plan: She has been on the fluoxetine. (8) Hypothyroidism Status: Chronic Assessment & Plan: She is on chronic treatment with Synthroid, which is currently being administered IV. (9) CKD (chronic kidney disease), stage III Status: Chronic (10) Elevated troponin Assessment & Plan: She has had an elevated troponin, but these have not trended in a pattern consistent with infarction. It is likely secondary to her chronic kidney disease. (11) Acute systolic right heart failure Assessment & Plan: She did have an elevated BNP. Her echocardiogram is reported to show a preserved ejection fraction, but pulmonary hypertension. We will be giving her a dose of Lasix today. Daily weights are ordered. Exam Sepsis Risk: No Definite Risk Problem Qualifiers (1) Hypertension: Hypertension type: essential hypertension Qualified Codes: I10 - Essential ( primary) hypertension ITA SOTELO DO Mar 01, 2018 09:20
[2018-03-01] MEDS: LEVOTHYROXINE SOD 100 MCG VIAL IVP SCH (09:36)
[2018-03-01] MEDS: NS(*) 0.9% 1000 ML BAG 1,000 ML IV PRN ×3 (09:50→23:07)
[2018-03-01] MEDS: DILTIAZEM HCL* 100 MG ADDVIAL 100 MG in NS(*) 0.9% 100 ML ADDVANT BAG 100 ML IV SCH (21:26)
[2018-03-02] VITALS (48 sets, daily range): BP systolic 138–191; BP diastolic 69–126
[2018-03-02] MEDS: SUCRALFATE 1 GM TAB PO SCH ×4 (02:17→20:36)
[2018-03-02] MEDS: PROPOFOL(*)1000 MG/100 ML VIAL 100 ML IV PRN (03:33)
[2018-03-02] MEDS: LEVALBUTEROL 1.25 MG/3 ML NEB NEB SCH ×4 (05:21→17:03)
[2018-03-02 05:27] LABS: PLATELET COUNT, AUTOMATED 168 K/uL (150-450)
[2018-03-02] MEDS: methylPREDNIS SUCC 125 MG/2ML IVP SCH ×2 (05:38→17:16)
[2018-03-02] MEDS: ACETAMINOPHEN(*)1000 MG/100 ML 100 ML IVPB SCH ×4 (05:38→23:03)
[2018-03-02] MEDS: cefTRIAXone(*) 1 GM VIAL 1 GM in NS(*) 0.9% 100 ML ADDVANT BAG 100 ML IVP SCH (05:39)
--- NOTE | 2018-03-02 06:26 | RADIOLOGY IMAGING REPORT ---
FACILITY: [facility] - [place] PATIENT NAME: Leigh De La Rosa : 1940 MR: [id number] V: [id number] EXAM DATE: ORDERING PHYSICIAN: ITA SOTELO TECHNOLOG[place]: [place] [facility] [place] Leigh De La Rosa : 1940 Visit/Account:[id number] Date of Sevice: 03/02/2018 Portable chest: Indication: Respiratory insufficiency. Technique: A single frontal film was obtained. Comparison: 03/11/2018 Lines and tubes: Remain in satisfactory position. Skeletal and soft tissue structures: Intact and unchanged. Heart and mediastinum: Stable. Lung murillo: Persistent right basilar opacity, without significant change. No new focal findings. Pleural spaces: No evidence of pneumothorax Impression: No significant change. Report Dictated By: Paulo Hamilton MD at 03/02/2018 6:20 AM Report E-Signed By: Paulo Hamilton MD at 03/02/2018 6:21 AM WSN:[id number]
[2018-03-02] MEDS: LEVALBUTEROL 0.63 MG/3 ML NEB NEB PRN (07:49)
[2018-03-02] MEDS: PANTOPRAZOLE SOD 40 MG IV VIAL IVP SCH ×2 (08:49→20:36)
[2018-03-02] MEDS: NS(*) 0.9% 1000 ML BAG 1,000 ML IV PRN ×2 (08:54→13:39)
[2018-03-02] MEDS: LEVOTHYROXINE SOD 100 MCG VIAL IVP SCH (09:57)
--- NOTE | 2018-03-02 11:19 | Hospitalist Progress Note ---
Physical Exam Vital Signs Date Time Temp Pulse Resp B/P (MAP) Pulse Ox O2 Delivery O2 Flow Rate FiO2 03/02/18 09:42 60.0 03/02/18 09:09 75 14 03/02/18 09:04 91 High-Flow Nasal Cannula 4.0 03/02/18 06:30 140/70 (93) 03/02/18 03:30 97.2 Result Diagram: 03/02/18 0500 03/02/18 0500 Assessment and Plan Problems: (1) COPD with exacerbation Status: Acute Assessment & Plan: She does have a history of severe COPD and presented with increased shortness of breath. Her Chest x-rays had been negative for an infiltrate but are now showing a RLL infiltrate. She is on treatment with nebulizers, IV corticosteroids, and ceftriaxone. She remains afebrile and her WBC is normal. She did extubate herself this am and was initially doing fine on nasal cannula. She desaturated when up out of bed and is now on BiPAP but doing well. Will wean back to a nasal cannula and monitor. (2) Right lower lobe pneumonia Status: Acute Assessment & Plan: CXR is now showing a right lower lobe infiltrate. She is on Rocephin and remains afebrile. WBC is normal. (3) Acute respiratory failure Assessment & Plan: She was intubated on 02/28/18 during a code. She received versed and propofol for sedation. She extubated herself on 03/02. She is currently on nasal cannula with BiPAP prn and is doing well. (4) Cardiorespiratory arrest Status: Acute Assessment & Plan: She did suffer a pulseless arrest on 02/28/18. This was likely secondary to SVT with rates over 200 by telemetry report. (5) Supraventricular tachycardia Status: Acute Assessment & Plan: She was noted to be in a narrow complex tachycardia during her code event. She converted to sinus rhythm after receiving adenosine. She has been in NSR with short runs of SVT since. Last evening she was started on a Cardizem gtt for prolonged SVT. This am she had recurrent tachycardia due to getting out of bed to use the commode. Her Cardizem was increased briefly. She is now back to 5mg per hour. (6) Hypertension Status: Chronic Assessment & Plan: She had been on diuretics, amlodipine and benazepril. These have all been on hold and her blood pressures are only mildly elevated. Will likely place her on Cardizem in place of amlodipine once she is ready to go back on orals to cover her for SVT as well. (7) Anxiety Status: Chronic Assessment & Plan: She has been on chronic fluoxetine and alprazolam. (8) Depression Status: Chronic Assessment & Plan: She has been on the fluoxetine. (9) Hypothyroidism Status: Chronic Assessment & Plan: She is on chronic treatment with Synthroid. Will continue. (10) CKD (chronic kidney disease), stage III Status: Chronic (11) Elevated troponin Assessment & Plan: She has had an elevated troponin, but these have not trended in a pattern consistent with infarction. It is likely secondary to her chronic kidney disease. (12) Acute systolic right heart failure Assessment & Plan: She did have an elevated BNP. Her echocardiogram is reported to show a preserved ejection fraction, but pulmonary hypertension. She received Lasix 03/01 but her creatinine increased. Time Spent on Plan of Care: < 30 min Exam Sepsis Risk: No Definite Risk Problem Qualifiers (1) Hypertension: Hypertension type: essential hypertension Qualified Codes: I10 - Essential ( primary) hypertension JAVIER SALAS MD Mar 02, 2018 11:19
[2018-03-02] MEDS: DILTIAZEM HCL* 100 MG ADDVIAL 100 MG in NS(*) 0.9% 100 ML ADDVANT BAG 100 ML IV SCH (13:04)
--- NOTE | 2018-03-02 14:04 | RADIOLOGY IMAGING REPORT ---
FACILITY: [facility] [place] PATIENT NAME: LIEN FRANKLIN : [id number] MR: [id number] V: [id number] EXAM DATE: ORDERING PHYSICIAN: JAVIER SALAS TECHNOLOGIST: Lucero Arceo EXAMINATION:TWO-DIMENSIONAL ECHOCARDIOGRAPH REASON:ELEVATED BNP/POSSIBLE PULMONARY HTN 2D Measurements (normal values in centimeters) LV endLV endRV endVent.LV PostAorticLeftPercent DiastolicSystolicDiastolicSeptumWallRootAtriumShortening (3.5-5.7)(0.9-2.6)(0.6-1.1)(0.6-1.1)(2.0-3.7)(1.9-4.0)(25-35%) [id number]% STROKE VOLUME: 60.7ml ESTIMATED EJECTION FRACTION:55% PARASTERNAL LONG AXIS: Overall left ventricular systolic function does appear to be normal. Right ventricle appears to be the upper range of normal in size if not slightly enlarged. The aortic valve & mitral valve both appear to open normally. The patient appears to be in sinus rhythm. No wall motion abnormalities are noted. Right ventricular function appears to be normal. The TAPSE measured at 2.5. Mild mitral annular calcification is noted. Color examination of the valves reveals some mitral insufficiency as well as a trace of aortic insufficiency present. There is also some tricuspid insufficiency. PARASTERNAL SHORT AXIS: Overall left ventricular systolic function again appears to be normal. Right ventricle appears to be borderline enlarged if not slightly enlarged. The aortic valve is not well seen but it is probably trileaflet in configuration with some aortic insufficiency noted. APICAL FOUR AND TWO CHAMBER: Normal left ventricular ejection fraction. Aortic valve area & mitral valve area both measure within normal ranges at 2.5 & 3.4cm2 respectively. The tricuspid regurgitation Vmax measured 3.54m/sec. Estimated right atrial pressures of 3mm Hg giving a total right atrial pressure of 53mm Hg. Left atrial volume is the upper range of normal in size. Right atrial volume is also the upper range of normal in size. Mild left ventricular thickening is noted. No evidence for any outflow tract obstruction. Mild amount of tricuspid insufficiency is noted. There is a moderate amount of mitral insufficiency noted. View is somewhat directed toward the free wall of the left atrium. There is mitral annular calcification. Mitral valve area measured within normal ranges at 3.4cm2 respectively. Aortic insufficiency is also noted. SUBCOSTAL VIEW: No pericardial effusion was noted. No atrioseptal or ventriculoseptal defects were appreciated. Doppler examination of the mitral valve in diastole does reveal the A wave > E wave indicates that there is reversal with Valsalva maneuver suggesting decreased diastolic function. Aortic insufficiency pressure half time was measured 464msec. OVERALL IMPRESSION: 1. Normal left ventricular ejection fraction of 55% with a moderate decrease in diastolic function. 2. Borderline to mildly enlarged right ventricle with the other chamber sizes being normal. The left atrial & right atrial volumes are measured the upper range of normal. 3. A trileaflet aortic valve with no aortic stenosis but a moderate amount of aortic insufficiency. 4. Mild mitral annular calcification but no stenosis & a moderate amount of mitral insufficiency. 5. A mild amount of tricuspid insufficiency with estimated right systolic pressures at 53mm Hg which does include an estimated right atrial pressure of 3mm Hg indicating moderate pulmonary hypertension & increased right ventricular systolic pressures. 6. A trace of pulmonic insufficiency. 7. Mild left ventricular thickening but no evidence for any outflow tract obstruction. Dictated by: Dianna Anders M.D. on 03/02/2018 at 10:29 Transcribed by: FREDDY on 03/02/2018 at 11:15 Approved by: Dianna Anders M.D. on 03/02/2018 at 14:03 [facility]
[2018-03-02] MEDS: LORazepam 2 MG/ML VIAL IVP PRN ×2 (17:49→23:04)
[2018-03-03] VITALS (46 sets, daily range): BP systolic 149–202; BP diastolic 76–131
[2018-03-03] MEDS: SUCRALFATE 1 GM TAB PO SCH ×4 (01:52→20:26)
[2018-03-03] MEDS: NS(*) 0.9% 1000 ML BAG 1,000 ML IV PRN ×3 (03:46→18:08)
[2018-03-03] MEDS: ACETAMINOPHEN(*)1000 MG/100 ML 100 ML IVPB SCH ×4 (05:10→22:41)
[2018-03-03] MEDS: cefTRIAXone(*) 1 GM VIAL 1 GM in NS(*) 0.9% 100 ML ADDVANT BAG 100 ML IVP SCH (05:10)
[2018-03-03] MEDS: methylPREDNIS SUCC 125 MG/2ML IVP SCH ×2 (05:10→17:27)
[2018-03-03 05:42] LABS: PLATELET COUNT, AUTOMATED 232 K/uL (150-450)
[2018-03-03] MEDS: LEVALBUTEROL 1.25 MG/3 ML NEB NEB SCH ×4 (06:03→17:11)
[2018-03-03] MEDS ORDERED: DILTIAZEM HCL* 100 MG ADDVIAL 100 MG in NS(*) 0.9% 100 ML ADDVANT BAG 100 ML IV SCH (08:00)
[2018-03-03] MEDS: LEVOTHYROXINE SOD 100 MCG VIAL IVP SCH (09:15)
[2018-03-03] MEDS: PANTOPRAZOLE SOD 40 MG IV VIAL IVP SCH ×2 (09:18→20:25)
--- NOTE | 2018-03-03 10:48 | Hospitalist Progress Note ---
Subjective Progress Notes Subjective She is awake and alert on BiPAP. She is able to speak a few words. Physical Exam Vital Signs Date Time Temp Pulse Resp B/P (MAP) Pulse Ox O2 Delivery O2 Flow Rate FiO2 03/03/18 10:00 92 03/03/18 10:00 17 173/87 (115) 99 High-Flow Nasal Cannula 6.0 03/03/18 08:03 40.0 03/03/18 08:00 97.9 Intake and Output 03/04/18 07:00 Intake Total 600 ml Balance 600 ml Intake Oral 600 ml General Appearance: Alert, Awake Cardiovascular: Regular Rate and Rhythm Respiratory: Other (Diminished breath sounds with expiratory wheezes throughout with significantly prolonged expiratory phase) Chest: No Tenderness GI: Soft and Non-Tender Extremities: Warm, Perfused Integumentary: Generalized Fragile Skin Result Diagram: 03/03/18 0500 03/03/18 0500 Assessment and Plan Problems: (1) COPD with exacerbation Status: Acute Assessment & Plan: She does have a history of severe COPD and presented with increased shortness of breath. Her chest x-rays had been negative for an infiltrate, but are now showing a RLL infiltrate. She is on treatment with nebulizers, IV corticosteroids, and ceftriaxone. She remains afebrile and her WBC had been normal (slightly elevated this AM). She did extubate herself yesterday and was initially doing fine on nasal cannula. She is now on BiPAP, but doing fairly well. Will see if can wean back to a nasal cannula at meal times. (2) Right lower lobe pneumonia Status: Acute Assessment & Plan: CXR is now showing a right lower lobe infiltrate. She is on Rocephin and remains afebrile. Watch closely. (3) Acute respiratory failure Assessment & Plan: She was intubated on 02/28/18 during a code. She received versed and propofol for sedation. She extubated herself on 03/02. She is currently on nasal cannula with BiPAP as needed and is doing fairly well. (4) Cardiorespiratory arrest Status: Acute Assessment & Plan: She did suffer a pulseless arrest on 02/28/18. This was likely secondary to SVT with rates over 200 by telemetry report. (5) Supraventricular tachycardia Status: Acute Assessment & Plan: She was noted to be in a narrow complex tachycardia during her code event. She converted to sinus rhythm after receiving adenosine. She has been in NSR with short runs of SVT since. She has received IV diltiazem intermittently for recurrent episodes. Will hold for now as she is in sinus rhythm. Watch closely. (6) Hypertension Status: Chronic Assessment & Plan: She had been on diuretics, amlodipine and benazepril. These have all been on hold and her blood pressures are only mildly elevated. Will likely place her on Cardizem in place of amlodipine once she is ready to go back on orals to cover her for SVT as well. (7) Anxiety Status: Chronic Assessment & Plan: She has been on chronic fluoxetine and alprazolam. (8) Depression Status: Chronic Assessment & Plan: She has been on the fluoxetine. (9) Hypothyroidism Status: Chronic Assessment & Plan: She is on chronic treatment with Synthroid. Will continue. (10) CKD (chronic kidney disease), stage III Status: Chronic (11) Elevated troponin Assessment & Plan: She has had an elevated troponin, but these have not trended in a pattern consistent with infarction. It is likely secondary to her chronic kidney disease. (12) Acute systolic right heart failure Assessment & Plan: She did have an elevated BNP. Her echocardiogram is reported to show a preserved ejection fraction, but pulmonary hypertension. She received Lasix /, but her creatinine increased. Watch labs. Exam Sepsis Risk: No Definite Risk Problem Qualifiers (1) Hypertension: Hypertension type: essential hypertension Qualified Codes: I10 - Essential ( primary) hypertension TAM SALAS MD Mar 03, 2018 10:48
[2018-03-03] MEDS ORDERED: DILTIAZEM CD 120 MG CAPCR PO SCH (10:50)
--- NOTE | 2018-03-03 14:56 | Medical Nutrition Therapy ---
Nutrition Anthropometrics Height (Inches): 64.00 Height (Calculated Centimeters: 162.415104 Weight (Pounds): 181 Weight (Calculated Kilograms): 82.270 BMI Calculated: 27.63 Bird Nutrition Score: Probably Inadequate Bird Nutrition Risk Score: 13 Dietary Referral Nutrition Risk Factors: Nutrition Risk Comment: Nutritional Diagnosis Nutritional Risk Acuity 2: Pr Appetite > 3d Nutritional Risk Acuity 3: COPD Unstable Past Medical History: HX of depression, anxiety, HTN, and GI bleed/ulcer, CKD- 3, COPD Nutritional Acuity: 2-Moderate Nutrition Diagnosis: Increased Nutrient Needs Nutrition Etiology: Inadeq. Food/Shae Intake Nutrition Problem/Etiology/Sym: NPO since admit on 02/26/18 only consuming clear liquids at this time. Pt has increased nutrient needs related to COPD with exacerbation. Energy Requirement: 1860 (kcal/day (23 kcal/kg)- [place] [facility] Jeor RMR (1292) AF 1.2, IF 1.2) Protein Requirement: 82 (g protein/day (1.0 g/kg)) Fluid Requirement: 2470 (mL/day (30 mL/kg)) Diet Type: Diet as Tolerated FABIOLA/REG Nutrition Intervention: Cont diet as ordered, Encourage intake Nutrition Monitoring & Eval Nutrition Goals: Eat 75-100% Meal Nutrition Follow-Up: Poor Intake RD Patient Assessment Time: [address] Assessment Type: RD Assessment Patient Nutrition Acuity: 2-Moderate Follow Up Date: Mar 05, 2018 Nutritional Comment: Pt admitted for COPD exacerbation. Pt on regualr diet but no intake reported at this time. BNP elevated at 650. BMI is in overwt range. Will cont to monitor and encourage intake. 03/01 Pt transferred to ICU after cardiac arrest episode. BNP 447, Alb 2.9, High AST/ALT. Pt NPO d/t intubation and sedation. Plan to wean today. Follow clinical progress, labs, etc. 03/03 Pt remains admitted in ICU on BiPAP. Pt diet advanced to FABIOLA. Pt currently tolerating clear liquids. BUN elevated at 42. Albumin was low but is increasing. Pt intakes not currently meeting estimated need. Continue to monitor and encourage increased intake. PHOENIX KENNEY Mar 03, 2018 13:48
[2018-03-03] MEDS: LORazepam 2 MG/ML VIAL IVP PRN ×2 (15:46→22:41)
[2018-03-04] VITALS (47 sets, daily range): BP systolic 154–188; BP diastolic 73–121
[2018-03-04] MEDS: methylPREDNIS SUCC 125 MG/2ML IVP SCH (05:08)
[2018-03-04] MEDS: cefTRIAXone(*) 1 GM VIAL 1 GM in NS(*) 0.9% 100 ML ADDVANT BAG 100 ML IVP SCH (05:09)
[2018-03-04] MEDS: SUCRALFATE 1 GM TAB PO SCH ×4 (05:15→20:29)
[2018-03-04] MEDS: LEVALBUTEROL 1.25 MG/3 ML NEB NEB SCH ×4 (05:40→18:36)
[2018-03-04 06:06] LABS: PLATELET COUNT, AUTOMATED 184 K/uL (150-450)
--- NOTE | 2018-03-04 06:45 | RADIOLOGY IMAGING REPORT ---
FACILITY: [facility] - [place] PATIENT NAME: Leigh De La Rosa : 1940 MR: [id number] V: [id number] EXAM DATE: ORDERING PHYSICIAN: TAM SALAS TECHNOLOGIST: Location: [facility] - [place], [place] Patient: Leigh De La Rosa : 1940 Visit/Account:[id number] Date of Sevice: 03/04/2018 PORTABLE CHEST: Indication: Pneumonia. Technique: A single frontal film was obtained. Comparison: 03/02/2018 Lines and tubes: The ET tube and NG tube were removed. No new lines or tubes are present. Skeletal and soft tissue structures: Intact and unchanged. Heart and mediastinum: Stable. Lung murillo: There is worsening consolidation and volume loss at the right base. Otherwise unchanged, allowing for technical differences. Pleural spaces: A small right effusion is not excluded. There is no evidence of pneumothorax. Impression: Worsening consolidation and volume loss at the right lung base. Report Dictated By: Paulo Hamilton MD at 03/04/2018 6:39 AM Report E-Signed By: Paulo Hamilton MD at 03/04/2018 6:41 AM WSN:[id number]
[2018-03-04] MEDS: PANTOPRAZOLE SOD 40 MG IV VIAL IVP SCH ×2 (08:52→20:29)
[2018-03-04] MEDS: LEVOTHYROXINE SOD 100 MCG VIAL IVP SCH (08:52)
[2018-03-04] MEDS: AZITHROMYCIN(*) 500 MG 500 MG in NS(*) 0.9% 250 ML BAG 250 ML IVPB SCH (08:53)
[2018-03-04] MEDS ORDERED: DILTIAZEM CD 180 MG CAPCR PO SCH (09:00)
[2018-03-04] MEDS ORDERED: FUROSEMIDE 20 MG/2 ML VIAL IVP ONE (11:05)
--- NOTE | 2018-03-04 11:05 | Hospitalist Progress Note ---
Subjective Progress Notes Subjective This patient was admitted for COPD. She had no acute events overnight. Patient Complains of: Cardiovascular: No: Chest Pain Respiratory: Cough, Shortness of Breath Physical Exam Vital Signs Date Time Temp Pulse Resp B/P (MAP) Pulse Ox O2 Delivery O2 Flow Rate FiO2 03/04/18 10:42 96 Bi-PAP 40.0 03/04/18 10:31 93 03/04/18 10:30 97.7 22 162/101 (121) 03/04/18 08:30 6.0 Intake and Output 03/05/18 07:00 Intake Total 264 ml Output Total 65 ml Balance 199 ml IV Total 264 ml Output Urine Total 65 ml Neuro: No Gross deficits Eyes: PERRLA Cardiovascular: Regular Rate and Rhythm Respiratory: Other (Bilateral breath sounds present. Rhonchi bilateral.) Extremities: No Edema Integumentary: No Cyanosis Result Diagram: 03/04/1858 03/04/18557 Imaging Chest x-ray reviewed. Assessment and Plan Problems: (1) COPD with exacerbation Status: Acute Assessment & Plan: She does have a history of severe COPD and presented with increased shortness of breath. She is on treatment with nebulizers and IV Solu Medrol. We will convert her to oral prednisone today. (2) Right lower lobe pneumonia Status: Acute Assessment & Plan: Her chest x-rays have shown a developing infiltrate on the right. She had been on empiric treatment with ceftriaxone, but we also added azithromycin today. Cultures are not available. (3) Acute respiratory failure Assessment & Plan: She was intubated on 02/28/18 during a code. She extubated herself on 03/02. She currently is wearing BiPAP intermittently. (4) Cardiorespiratory arrest Status: Acute Assessment & Plan: She did suffer a pulseless arrest on 02/28/18. This was likely secondary to SVT with rates over 200 by telemetry report. (5) Supraventricular tachycardia Status: Acute Assessment & Plan: She was noted to be in a narrow complex tachycardia during her code event. She converted to sinus rhythm after receiving adenosine. She has continued to have short runs of SVT in the ICU. She was placed on a diltiazem drip over the last few days, but we will be converting her to oral treatment today. (6) Hypertension Status: Chronic Assessment & Plan: She had been on diuretics, amlodipine and benazepril, which have been on hold. We will follow her blood pressure after starting the diltiazem. (7) Anxiety Status: Chronic Assessment & Plan: She has been on chronic fluoxetine and alprazolam. (8) Depression Status: Chronic Assessment & Plan: She has been on the fluoxetine. (9) Hypothyroidism Status: Chronic Assessment & Plan: She is on chronic treatment with Synthroid. (10) CKD (chronic kidney disease), stage III Status: Chronic (11) Elevated troponin Assessment & Plan: She has had an elevated troponin, but these have not trended in a pattern consistent with infarction. It is likely secondary to her chronic kidney disease. (12) Acute systolic right heart failure Assessment & Plan: She did have an elevated BNP. Her echocardiogram is reported to show a preserved ejection fraction, but pulmonary hypertension. Her weights are increased approximately 13kg since admission. We will administer Lasix today. Exam Sepsis Risk: No Definite Risk Problem Qualifiers (1) Hypertension: Hypertension type: essential hypertension Qualified Codes: I10 - Essential ( primary) hypertension ITA SOTELO DO Mar 04, 2018 11:05
[2018-03-04] MEDS ORDERED: ACETAMINOPHEN 325 MG TAB PO PRN (17:20)
[2018-03-04] MEDS: ACETAMINOPHEN 325 MG TAB PO PRN (18:15)
[2018-03-04] MEDS: ALPRAZolam 0.5 MG TAB PO SCH (20:53)
[2018-03-05] VITALS (37 sets, daily range): BP systolic 139–205; BP diastolic 70–137
[2018-03-05] MEDS: ACETAMINOPHEN 325 MG TAB PO PRN (01:01)
[2018-03-05 05:34] LABS: PLATELET COUNT, AUTOMATED 168 K/uL (150-450)
[2018-03-05] MEDS: LEVALBUTEROL 1.25 MG/3 ML NEB NEB SCH ×4 (05:58→16:58)
[2018-03-05] MEDS: cefTRIAXone(*) 1 GM VIAL 1 GM in NS(*) 0.9% 100 ML ADDVANT BAG 100 ML IVP SCH (06:14)
[2018-03-05] MEDS: SUCRALFATE 1 GM TAB PO SCH ×4 (06:14→21:27)
--- NOTE | 2018-03-05 06:26 | RADIOLOGY IMAGING REPORT ---
FACILITY: [facility] - [place] PATIENT NAME: Leigh De La Rosa : 1940 MR: [id number] V: [id number] EXAM DATE: ORDERING PHYSICIAN: ITA SOTELO TECHNOLOGIST: Location: [facility] - [place] Patient: Leigh De La Rosa : 1940 Visit/Account:[id number] Date of Sevice: 03/05/2018 PORTABLE CHEST: Indication: Pneumonia. Technique: A single frontal film was obtained. Comparison: 03/04/2018 Skeletal and soft tissue structures: Intact and unchanged. Heart and mediastinum: Stable. Lung murillo: The basilar parenchymal opacities are not significantly changed, allowing for technical differences. No new focal opacities are identified. Pleural spaces: Small effusions appear unchanged. There is no evidence of pneumothorax. Impression: No significant change. Report Dictated By: Paulo Hamilton MD at 03/05/2018 6:21 AM Report E-Signed By: Paulo Hamilton MD at 03/05/2018 6:22 AM WSN:[id number]
[2018-03-05] MEDS ORDERED: FUROSEMIDE 20 MG/2 ML VIAL IVP ONE (08:00)
[2018-03-05] MEDS ORDERED: DILTIAZEM CD 120 MG CAPCR PO SCH (09:00)
[2018-03-05] MEDS ORDERED: predniSONE 20 MG TAB PO SCH (09:00)
[2018-03-05] MEDS: methylPREDNIS SUCC 125 MG/2ML IVP SCH ×2 (09:28→16:30)
[2018-03-05] MEDS: PANTOPRAZOLE SOD 40 MG IV VIAL IVP SCH ×2 (09:29→21:26)
[2018-03-05] MEDS: AZITHROMYCIN(*) 500 MG 500 MG in NS(*) 0.9% 250 ML BAG 250 ML IVPB SCH (09:30)
[2018-03-05] MEDS: LEVOTHYROXINE SOD 0.1 MG TAB PO SCH (09:30)
[2018-03-05] MEDS: IMIPENEM/CILASTA(*) 500MG VIAL 500 MG in NS(*) 0.9% 100 ML BAG 100 ML IVPB SCH ×3 (10:55→21:26)
--- NOTE | 2018-03-05 13:18 | Hospitalist Progress Note ---
Subjective Progress Notes Subjective The patient is much more alert and interactive today. She denies new complaints. Physical Exam Vital Signs Date Time Temp Pulse Resp B/P (MAP) Pulse Ox O2 Delivery O2 Flow Rate FiO2 03/05/18 11:59 83 03/05/18 11:00 98.6 18 175/101 (125) 97 Bi-PAP 60.0 03/05/18 08:00 8.0 Intake and Output 03/06/18 06:59 Intake Total 229 ml Output Total 2125 ml Balance -1896 ml Intake Oral 120 ml IV Total 109 ml Output Urine Total 2125 ml General Appearance: Alert, Awake, Other (Mild to moderate increased work of breathing.) Neuro: No Gross deficits Eyes: PERRLA Cardiovascular: Regular Rate and Rhythm Respiratory: Other (Crackles, both bases.) GI: Soft and Non-Tender Extremities: Warm, Perfused Integumentary: Skin Intact without Lesion / Mass Psych: Appropriate Mood & Affect Result Diagram: 03/05/18 0504 03/05/18 0504 Assessment and Plan Problems: (1) COPD with exacerbation Status: Acute Assessment & Plan: She does have a history of severe COPD and presented with increased shortness of breath. She is on treatment with nebulizers and IV Solu Medrol. She was converted to oral prednisone on 03/04 but has had increased wheezing today. Will place back on IV steroids. She is getting nebulizer treatments every 4 hours. CXR today shows bibasilar infiltrates. (2) Right lower lobe pneumonia Status: Acute Assessment & Plan: Her chest x-rays have shown a developing infiltrate on the right. On CXR from 03/05 she is noted to have bibasilar infiltrates. She had been on empiric treatment with ceftriaxone, but we also added azithromycin on . Cultures are not available. (3) Acute respiratory failure Assessment & Plan: She was intubated on 02/28/18 during a code. She extubated herself on 03/02. She currently is wearing BiPAP intermittently. (4) Cardiorespiratory arrest Status: Acute Assessment & Plan: She did suffer a pulseless arrest on 02/28/18. This was likely secondary to SVT with rates over 200 by telemetry report. (5) Supraventricular tachycardia Status: Acute Assessment & Plan: She was noted to be in a narrow complex tachycardia during her code event. She converted to sinus rhythm after receiving adenosine. She has continued to have short runs of SVT in the ICU. She was placed on a diltiazem drip initially, but was converted to oral therapy on 03/04. (6) Hypertension Status: Chronic Assessment & Plan: She had been on diuretics, amlodipine and benazepril, which have been on hold. We will follow her blood pressure after starting the diltiazem. (7) Anxiety Status: Chronic Assessment & Plan: She has been on chronic fluoxetine and alprazolam. (8) Depression Status: Chronic Assessment & Plan: She has been on the fluoxetine. (9) Hypothyroidism Status: Chronic Assessment & Plan: She is on chronic treatment with Synthroid. (10) CKD (chronic kidney disease), stage III Status: Chronic (11) Elevated troponin Assessment & Plan: She has had an elevated troponin, but these have not trended in a pattern consistent with infarction. It is likely secondary to her chronic kidney disease. (12) Acute systolic right heart failure Assessment & Plan: She did have an elevated BNP. Her echocardiogram is reported to show a preserved ejection fraction, but pulmonary hypertension. Her weights are increased approximately 13kg since admission. We will administer Lasix as needed. Time Spent on Plan of Care: < 30 min Exam Sepsis Risk: No Definite Risk Problem Qualifiers (1) Hypertension: Hypertension type: essential hypertension Qualified Codes: I10 - Essential ( primary) hypertension JAVIER SALAS MD Mar 05, 2018 13:18
--- NOTE | 2018-03-05 13:59 | Medical Nutrition Therapy ---
Nutrition Anthropometrics Height (Inches): 64.00 Height (Calculated Centimeters: 162.335471 Weight (Pounds): 190 Weight (Calculated Kilograms): 86.381 BMI Calculated: 27.63 Bird Nutrition Score: Probably Inadequate Bird Nutrition Risk Score: 14 Dietary Referral Nutrition Risk Factors: Nutrition Risk Comment: Nutritional Diagnosis Nutritional Risk Acuity 2: Pr Appetite > 3d Nutritional Risk Acuity 3: COPD Unstable Past Medical History: HX of depression, anxiety, HTN, and GI bleed/ulcer, CKD- 3, COPD Nutritional Acuity: 2-Moderate Nutrition Diagnosis: Increased Nutrient Needs Nutrition Etiology: Inadeq. Food/Shae Intake Nutrition Problem/Etiology/Sym: NPO since admit on 02/26/18 only consuming clear liquids at this time. Pt has increased nutrient needs related to COPD with exacerbation. Energy Requirement: 1860 (kcal/day (23 kcal/kg)- [place] St Jeor RMR (1292) AF 1.2, IF 1.2) Protein Requirement: 82 (g protein/day (1.0 g/kg)) Fluid Requirement: 2470 (mL/day (30 mL/kg)) Diet Type: Diet as Tolerated FABIOLA/REG Nutrition Intervention: Cont diet as ordered, Encourage intake Food Dislikes: Dislikes chocolate ensure Diet Comment To RSA: OFFER VANILLA NUTRITION SUPPLEMENT Nutrition Monitoring & Eval Nutrition Goals: Eat 75-100% Meal Nutrition Follow-Up: Poor Intake RD Patient Assessment Time: [address] Assessment Type: RD Re-Assessment Patient Nutrition Acuity: 2-Moderate Follow Up Date: Mar 09, 2018 Nutritional Comment: Pt admitted for COPD exacerbation. Pt on regualr diet but no intake reported at this time. BNP elevated at 650. BMI is in overwt range. Will cont to monitor and encourage intake. 03/01 Pt transferred to ICU after cardiac arrest episode. BNP 447, Alb 2.9, High AST/ALT. Pt NPO d/t intubation and sedation. Plan to wean today. Follow clinical progress, labs, etc. 03/03 Pt remains admitted in ICU on BiPAP. Pt diet advanced to FABIOLA. Pt currently tolerating clear liquids. BUN elevated at 42. Albumin was low but is increasing. Pt intakes not currently meeting estimated need. Continue to monitor and encourage increased intake. 03/05 Pt diet as tolerated. Recorded intakes report pt continues to only consume liquids at this time. Pollution Control Chemist visited pt room. Pt consuming eggs with toast. Pollution Control Chemist encouraged pt to consume protein on each meal tray to encourage strength and healing. Pt reports that she has tried chocolate ensure and dislikes the flavor but is willing to try vanilla ensure. Pollution Control Chemist will continue to monitor pt intake and progress. PHOENIX KENNEY Mar 05, 2018 08:41
[2018-03-05] MEDS: POTASSIUM CHL 10 MEQ TABCR PO SCH (17:40)
[2018-03-05] MEDS: ALPRAZolam 0.5 MG TAB PO SCH (21:26)
[2018-03-06] VITALS (16 sets, daily range): BP systolic 140–182; BP diastolic 70–136
[2018-03-06] MEDS: LEVALBUTEROL 0.63 MG/3 ML NEB NEB PRN (00:11)
[2018-03-06] MEDS: methylPREDNIS SUCC 125 MG/2ML IVP SCH ×3 (00:21→17:17)
[2018-03-06] MEDS: IMIPENEM/CILASTA(*) 500MG VIAL 500 MG in NS(*) 0.9% 100 ML BAG 100 ML IVPB SCH ×4 (03:36→23:23)
[2018-03-06] MEDS: LEVALBUTEROL 1.25 MG/3 ML NEB NEB SCH ×4 (04:26→17:10)
[2018-03-06 05:14] LABS: PLATELET COUNT, AUTOMATED 153 K/uL (150-450)
[2018-03-06] MEDS: LEVOTHYROXINE SOD 0.1 MG TAB PO SCH (06:07)
[2018-03-06] MEDS: SUCRALFATE 1 GM TAB PO SCH ×4 (06:07→20:30)
[2018-03-06] MEDS: KCL (*) 20 MEQ/100 ML PREMIX 100 ML IV SCH ×4 (06:37→17:15)
[2018-03-06] MEDS: POTASSIUM CHL 10 MEQ TABCR PO SCH ×2 (08:28→17:16)
[2018-03-06] MEDS: DILTIAZEM CD 180 MG CAPCR PO SCH (08:28)
[2018-03-06] MEDS: PANTOPRAZOLE SOD 40 MG TABEC PO SCH (08:28)
[2018-03-06] MEDS: FLUoxetine HCL 20 MG CAP PO SCH (09:00)
[2018-03-06] MEDS: AZITHROMYCIN(*) 500 MG 500 MG in NS(*) 0.9% 250 ML BAG 250 ML IVPB SCH (09:15)
[2018-03-06] MEDS ORDERED: NS(*) 0.9% 500 ML BAG 500 ML ONE (09:20)
--- NOTE | 2018-03-06 11:42 | Hospitalist Progress Note ---
Subjective Progress Notes Subjective The patient is still having intermittent, asymptomatic PAC's and short runs of SVT. She slept well o/n. Physical Exam Vital Signs Date Time Temp Pulse Resp B/P (MAP) Pulse Ox O2 Delivery O2 Flow Rate FiO2 03/06/18 11:12 79 03/06/18 09:53 95 03/06/18 09:45 16 03/06/18 09:38 40.0 03/06/18 09:34 Bi-PAP 03/06/18 09:00 182/136 (151) 03/06/18 08:45 7.0 03/06/18 07:10 98.4 Intake and Output 03/07/18 07:00 Intake Total 980 ml Output Total 875 ml Balance 105 ml Intake Oral 520 ml IV Total 460 ml Output Urine Total 875 ml # Bowel Movements 1 General Appearance: Alert, Awake, No Acute Distress Cardiovascular: Other (irregular, no m/r/g.) Respiratory: Other (Insp crackles in the right base and decreased BS in the right base) Result Diagram: 03/06/18 0508 03/06/18 0508 Assessment and Plan Problems: (1) COPD with exacerbation Status: Acute Assessment & Plan: She does have a history of severe COPD and presented with increased shortness of breath. She is on treatment with nebulizers and IV Solu Medrol. She was converted to oral prednisone on 03/04 but has had increased wheezing on 03/05, so placed back on IV steroids. She is getting nebulizer treatments every 4 hours. CXR today shows bibasilar infiltrates. She is doing well enough to go to the medical floor. (2) Right lower lobe pneumonia Status: Acute Assessment & Plan: Her chest x-rays have shown a developing infiltrate on the right. On CXR from 03/05 she is noted to have bibasilar infiltrates. She had been on empiric treatment with ceftriaxone, but we also added azithromycin on . Cultures are not available. (3) Acute systolic right heart failure Assessment & Plan: She did have an elevated BNP. Her echocardiogram is reported to show a preserved ejection fraction, but pulmonary hypertension. Her weights are increased approximately 13kg since admission. She is diuresing with prn Lasix. (4) Upper GI bleed Status: Acute Assessment & Plan: The patient has a h/o PUD. She had about 300cc of dark blood from the NG on 02/28. Hgb did drop from 13.3 to 11. Lovenox was stopped and she was given 2 units of FFP. She is on Protonix and Carafate. Hgb has been stable. (5) Hypokalemia Status: Acute Assessment & Plan: Secondary to Lasix. Replacing and then rechecking BMP. Mg is wnl. (6) Cardiorespiratory arrest Status: Acute Assessment & Plan: She did suffer a pulseless arrest on 02/28/18. This was likely secondary to SVT with rates over 200 by telemetry report. Echo shows an EF of 55%, and no wall motion abnormalities. The troponins were in the borderline area and relatively unchanged from admission. (7) Acute respiratory failure Status: Resolved Assessment & Plan: She was intubated on 02/28/18 during a code. She extubated herself on 03/02. She currently is wearing BiPAP intermittently. (8) Supraventricular tachycardia Status: Acute Assessment & Plan: She was noted to be in a narrow complex tachycardia during her code event. She converted to sinus rhythm after receiving adenosine. She has continued to have short runs of SVT in the ICU. She was placed on a diltiazem drip initially, but was converted to oral therapy on 03/04. (9) Elevated troponin Assessment & Plan: She has had an elevated troponin, but these have not trended in a pattern consistent with infarction. It is likely secondary to her chronic kidney disease. (10) Hypertension Status: Chronic Assessment & Plan: She had been on diuretics, amlodipine and benazepril, which have been on hold. We will follow her blood pressure after starting the diltiazem. (11) Anxiety Status: Chronic Assessment & Plan: She has been on chronic fluoxetine and alprazolam. (12) Depression Status: Chronic Assessment & Plan: She has been on the fluoxetine. (13) Hypothyroidism Status: Chronic Assessment & Plan: She is on chronic treatment with Synthroid. (14) CKD (chronic kidney disease), stage III Status: Chronic Exam Sepsis Risk: No Definite Risk Problem Qualifiers (1) Hypertension: Hypertension type: essential hypertension Qualified Codes: I10 - Essential ( primary) hypertension DOLORES CHAPMAN MD Mar 06, 2018 11:42
[2018-03-06] MEDS ORDERED: FUROSEMIDE 20 MG/2 ML VIAL IVP ONE (13:10)
[2018-03-06] MEDS: ALPRAZolam 0.5 MG TAB PO SCH (20:30)
[2018-03-07] MEDS: methylPREDNIS SUCC 125 MG/2ML IVP SCH (00:21)
[2018-03-07] MEDS: ACETAMINOPHEN 325 MG TAB PO PRN ×2 (02:06→20:51)
[2018-03-07 03:29] VITALS: BP 160/102
[2018-03-07] MEDS: LEVALBUTEROL 1.25 MG/3 ML NEB NEB SCH ×4 (05:13→17:49)
[2018-03-07] MEDS: LEVOTHYROXINE SOD 0.1 MG TAB PO SCH (05:56)
[2018-03-07] MEDS: IMIPENEM/CILASTA(*) 500MG VIAL 500 MG in NS(*) 0.9% 100 ML BAG 100 ML IVPB SCH (05:57)
[2018-03-07] MEDS: SUCRALFATE 1 GM TAB PO SCH ×4 (06:00→20:51)
[2018-03-07 06:37] LABS: PLATELET COUNT, AUTOMATED 173 K/uL (150-450)
[2018-03-07 07:11] VITALS: BP 170/92
[2018-03-07] MEDS ORDERED: SALMETEROL/FLUTIC 500/50 1 INH INH SCH (08:40)
[2018-03-07] MEDS ORDERED: AZITHROMYCIN 250 MG TAB PO SCH (09:00)
[2018-03-07] MEDS: SALMETEROL/FLUTIC 250/50 1 INH INH SCH ×2 (09:17→17:49)
[2018-03-07] MEDS: DILTIAZEM CD 180 MG CAPCR PO SCH (09:22)
[2018-03-07] MEDS: PANTOPRAZOLE SOD 40 MG TABEC PO SCH (09:22)
[2018-03-07] MEDS: FLUoxetine HCL 20 MG CAP PO SCH (09:22)
[2018-03-07] MEDS: predniSONE 20 MG TAB PO SCH (09:22)
[2018-03-07] MEDS: CEFDINIR 300 MG CAP PO SCH ×2 (09:22→20:50)
[2018-03-07] MEDS: BENAZEPRIL HCL 20 MG TAB PO SCH (09:22)
[2018-03-07] MEDS: POTASSIUM CHL 10 MEQ TABCR PO SCH ×2 (09:22→16:38)
--- NOTE | 2018-03-07 10:38 | Hospitalist Progress Note ---
Subjective Progress Notes Subjective This patient was admitted for COPD, but then developed SVT and was transferred to the emergency room. She had no acute events overnight. Patient Complains of: Cardiovascular: No: Chest Pain Respiratory: No: Shortness of Breath Physical Exam Vital Signs Date Time Temp Pulse Resp B/P (MAP) Pulse Ox O2 Delivery O2 Flow Rate FiO2 03/07/18 09:36 85 24 03/07/18 09:17 90 Nasal Cannula 2.0 03/07/18 07:11 98.0 170/92 (118) 03/06/18 23:29 40.0 Intake and Output 03/08/18 07:00 Intake Total 290 ml Balance 290 ml Intake Oral 290 ml # Bowel Movements 1 Neuro: No Gross deficits Eyes: PERRLA Cardiovascular: Regular Rate and Rhythm Respiratory: Clear to Auscultation Extremities: No Edema Integumentary: No Cyanosis Result Diagram: 03/07/18 0543 03/07/18542 Imaging Chest x-ray reviewed. Assessment and Plan Problems: (1) COPD with exacerbation Status: Acute Assessment & Plan: She does have a history of severe COPD and presented with increased shortness of breath. She is on treatment with nebulizers and IV Solu Medrol. She has been receiving IV steroids, but we have switched her back to oral prednisone today. We have also restarted her Advair. (2) Right lower lobe pneumonia Status: Acute Assessment & Plan: Her chest x-ray revealed an infiltrate on the right. She has been on treatment with ceftriaxone and azithromycin. We converted her to oral cefdinir and azithromycin today. (3) Acute systolic right heart failure Assessment & Plan: She did have an elevated BNP. Her echocardiogram is reported to show a preserved ejection fraction, but pulmonary hypertension. Her weights remain elevated above her baseline. We have started her on scheduled oral Lasix today. (4) Upper GI bleed Status: Acute Assessment & Plan: The patient has a h/o PUD. She had about 300cc of dark blood from the NG on 02/28. Hgb did drop from 13.3 to 11. Lovenox was stopped and she was given 2 units of FFP. She is on Protonix and Carafate. Hgb has been stable. (5) Hypokalemia Status: Acute Assessment & Plan: She is on oral replacement. (6) Cardiorespiratory arrest Status: Acute Assessment & Plan: She did suffer a pulseless arrest on 02/28/18. This was likely secondary to SVT with rates over 200 by telemetry report. Echo shows an EF of 55%, and no wall motion abnormalities. The troponins were in the borderline area and relatively unchanged from admission. (7) Acute respiratory failure Status: Resolved Assessment & Plan: She was intubated on 02/28/18 during a code. She extubated herself on 03/02. She currently is wearing BiPAP intermittently. (8) Supraventricular tachycardia Status: Acute Assessment & Plan: She was noted to be in a narrow complex tachycardia during her code event. She converted to sinus rhythm after receiving adenosine. She has continued to have short runs of SVT in the ICU. She was placed on a diltiazem drip initially, but was converted to oral therapy on 03/04. (9) Elevated troponin Assessment & Plan: She has had an elevated troponin, but these have not trended in a pattern consistent with infarction. It is likely secondary to her chronic kidney disease. (10) Hypertension Status: Chronic Assessment & Plan: She had been on diuretics, amlodipine and benazepril, which have been on hold. She has been started on diltiazem as above. We have also restarted her benazepril today. (11) Anxiety Status: Chronic Assessment & Plan: She has been on chronic fluoxetine and alprazolam. (12) Depression Status: Chronic Assessment & Plan: She has been on the fluoxetine. (13) Hypothyroidism Status: Chronic Assessment & Plan: She is on chronic treatment with Synthroid. (14) CKD (chronic kidney disease), stage III Status: Chronic Exam Sepsis Risk: No Definite Risk Problem Qualifiers (1) Hypertension: Hypertension type: essential hypertension Qualified Codes: I10 - Essential ( primary) hypertension ITA SOTELO DO Mar 07, 2018 10:38
[2018-03-07] MEDS: FUROSEMIDE 20 MG TAB PO SCH (10:41)
[2018-03-07] MEDS ORDERED: FUROSEMIDE 20 MG TAB ONE (10:42)
[2018-03-07 11:36] VITALS: BP 162/93
[2018-03-07 14:40] VITALS: BP 163/75
[2018-03-07 19:28] VITALS: BP 159/67
[2018-03-07] MEDS: ALPRAZolam 0.5 MG TAB PO SCH (20:50)
[2018-03-07 23:09] VITALS: BP 144/87
[2018-03-08] VITALS (7 sets, daily range): BP systolic 129–164; BP diastolic 72–103
[2018-03-08] MEDS: ACETAMINOPHEN 325 MG TAB PO PRN ×3 (03:12→21:19)
[2018-03-08] MEDS: SALMETEROL/FLUTIC 250/50 1 INH INH SCH ×2 (05:02→17:19)
[2018-03-08] MEDS: LEVALBUTEROL 1.25 MG/3 ML NEB NEB SCH ×4 (05:02→17:19)
[2018-03-08] MEDS: SUCRALFATE 1 GM TAB PO SCH (06:08)
[2018-03-08] MEDS: LEVOTHYROXINE SOD 0.1 MG TAB PO SCH (06:08)
[2018-03-08] MEDS: KCL (*) 20 MEQ/100 ML PREMIX 100 ML IV SCH ×2 (07:22→09:47)
[2018-03-08] MEDS ORDERED: NS(*) 0.9% 1000 ML BAG 1,000 ML IV PRN (07:30)
[2018-03-08] MEDS: CEFDINIR 300 MG CAP PO SCH ×2 (08:51→21:19)
[2018-03-08] MEDS: BENAZEPRIL HCL 20 MG TAB PO SCH (08:51)
[2018-03-08] MEDS: POTASSIUM CHL 10 MEQ TABCR PO SCH ×2 (08:51→17:17)
[2018-03-08] MEDS: DILTIAZEM CD 180 MG CAPCR PO SCH (08:51)
[2018-03-08] MEDS: predniSONE 20 MG TAB PO SCH (08:51)
[2018-03-08] MEDS: PANTOPRAZOLE SOD 40 MG TABEC PO SCH (08:52)
[2018-03-08] MEDS: FLUoxetine HCL 20 MG CAP PO SCH (08:52)
[2018-03-08] MEDS: SPIRONOLACTONE 25 MG TAB PO SCH (08:52)
[2018-03-08] MEDS ORDERED: AZITHROMYCIN 250 MG TAB PO SCH (09:00)
--- NOTE | 2018-03-08 09:53 | Hospitalist Progress Note ---
Subjective Progress Notes Subjective The patient reports sleeping well and has an appetite this morning. She has noted occasional fluttering of her heart. Physical Exam Vital Signs Date Time Temp Pulse Resp B/P (MAP) Pulse Ox O2 Delivery O2 Flow Rate FiO2 03/08/18 09:37 99 20 03/08/18 09:24 93 Nasal Cannula 2.0 03/08/18 06:59 98.2 138/75 (96) 03/07/18 19:28 40.0 Intake and Output 03/09/18 07:00 Intake Total 840 ml Balance 840 ml Intake Oral 840 ml General Appearance: Alert, Awake, Other (Mild work of breathing) Cardiovascular: Other (Regular with early beats. Borderline tachycardic.) Respiratory: Other (Diffuse, bilateral exp wheezes.) Result Diagram: 03/07/18 0543 03/08/18 0517 Assessment and Plan Problems: (1) COPD with exacerbation Status: Acute Assessment & Plan: She does have a history of severe COPD and presented with increased shortness of breath. She is on treatment with nebulizers and IV Solu Medrol. She was converted to oral prednisone on 03/04 but has had increased wheezing on 03/05, so placed back on IV steroids. Now on prednisone. She is getting nebulizer treatments 4 times daily with prn. CXR today shows bibasilar infiltrates. We have also restarted her Advair. She is more wheezy again today. Repeat CXR pending. (2) Right lower lobe pneumonia Status: Acute Assessment & Plan: Her chest x-ray revealed an infiltrate on the right. She has been on treatment with ceftriaxone and azithromycin. We converted her to oral cefdinir and azithromycin on 03/07. (3) Heart failure with preserved left ventricular function (HFpEF) Status: Acute Assessment & Plan: She did have an elevated BNP. Her echocardiogram is reported to show a preserved ejection fraction, but pulmonary hypertension. Her weights remain elevated above her baseline. We have started her on scheduled oral Lasix starting on 03/07. However, it will be held until her potassium is replaced today. Also, will start spironolactone. (4) Upper GI bleed Status: Acute Assessment & Plan: The patient has a h/o PUD. She had about 300cc of dark blood from the NG on 02/28. Hgb did drop from 13.3 to 11. Lovenox was stopped and she was given 2 units of FFP. She is on Protonix and Carafate. Will stop Carafate. Hgb has been stable. On SCD for VTE prophylaxis. (5) Hypokalemia Status: Acute Assessment & Plan: She is on oral replacement. Adding spironolactone. Will follow. (6) Supraventricular tachycardia Status: Acute Assessment & Plan: She was noted to be in a narrow complex tachycardia during her code event. She converted to sinus rhythm after receiving adenosine. She has continued to have short runs of SVT in the ICU. She was placed on a diltiazem drip initially, but was converted to oral therapy on 03/04. Now titrating up the diltiazem. Dr. Chapman spoke with Cardiology (Dr. Gutiérrez) who agreed with the plan and recommended Cardiology follow up as an outpatient. He also recommended ASA, but because of her GI bleed, didn't think it was needed at this time or Plavix. (7) Cardiorespiratory arrest Status: Acute Assessment & Plan: She did suffer a pulseless arrest on 02/28/18. This was likely secondary to SVT with rates over 200 by telemetry report. Echo shows an EF of 55%, and no wall motion abnormalities. The troponins were in the borderline area and relatively unchanged from admission. (8) Acute respiratory failure Status: Resolved Assessment & Plan: She was intubated on 02/28/18 during a code. She extubated herself on 03/02. She currently is wearing BiPAP intermittently. (9) Elevated troponin Assessment & Plan: She has had an elevated troponin, but these have not trended in a pattern consistent with infarction. It is likely secondary to her chronic kidney disease. (10) Hypertension Status: Chronic Assessment & Plan: She had been on diuretics, amlodipine and benazepril, which have been on hold. She has been started on diltiazem as above. We have also restarted her benazepril. (11) Anxiety Status: Chronic Assessment & Plan: She has been on chronic fluoxetine and alprazolam. (12) Depression Status: Chronic Assessment & Plan: She has been on the fluoxetine. (13) Hypothyroidism Status: Chronic Assessment & Plan: She is on chronic treatment with Synthroid. (14) CKD (chronic kidney disease), stage III Status: Chronic Exam Sepsis Risk: No Definite Risk Problem Qualifiers (1) Hypertension: Hypertension type: essential hypertension Qualified Codes: I10 - Essential ( primary) hypertension DOLORES CHAPMAN MD Mar 08, 2018 09:53
--- NOTE | 2018-03-08 11:34 | RADIOLOGY IMAGING REPORT ---
FACILITY: [facility] - [place], [place] PATIENT NAME: Leigh De La Rosa : 1940 MR: [id number] V: [id number] EXAM DATE: ORDERING PHYSICIAN: DOLORES CHAPMAN TECHNOLOGIST: Location: [facility] Patient: Leigh De La Rosa : 1940 Visit/Account:[id number] Date of Sevice: 03/08/2018 CHEST SINGLE AP HISTORY: Pneumonia COMPARISON: 03/05/2018 FINDINGS: Cardiomediastinal contours: Normal Lungs and pleura: Mild increasing bibasilar pleural-parenchymal opacities. No pneumothorax. Bones/soft tissues: Normal Other findings: None significant IMPRESSION: 1. Mild increasing bibasilar pleural-parenchymal opacities. This may represent increasing pleural eff usions with adjacent infiltrate/atelectasis. Report Dictated By: Leonid Zabala MD at 03/08/2018 11:27 AM Report E-Signed By: Leonid Zabala MD at 03/08/2018 11:29 AM WSN:[id number]
[2018-03-08] MEDS: FUROSEMIDE 20 MG TAB PO SCH (11:59)
[2018-03-08] MEDS: methylPREDNIS SUCC 125 MG/2ML IVP SCH ×2 (11:59→19:52)
[2018-03-08] MEDS: ALPRAZolam 0.5 MG TAB PO SCH (21:19)
[2018-03-09 03:05] VITALS: BP 142/75
[2018-03-09] MEDS: methylPREDNIS SUCC 125 MG/2ML IVP SCH ×3 (04:05→20:34)
[2018-03-09] MEDS: SALMETEROL/FLUTIC 250/50 1 INH INH SCH ×2 (05:12→17:00)
[2018-03-09] MEDS: LEVALBUTEROL 1.25 MG/3 ML NEB NEB SCH ×4 (05:12→17:00)
[2018-03-09] MEDS: LEVOTHYROXINE SOD 0.1 MG TAB PO SCH (05:56)
[2018-03-09 06:10] LABS: PLATELET COUNT, AUTOMATED 162 K/uL (150-450)
[2018-03-09 07:08] VITALS: BP 146/63
[2018-03-09] MEDS: FLUoxetine HCL 20 MG CAP PO SCH (08:25)
[2018-03-09] MEDS: FUROSEMIDE 20 MG TAB PO SCH (08:25)
[2018-03-09] MEDS: SPIRONOLACTONE 25 MG TAB PO SCH (08:25)
[2018-03-09] MEDS: PANTOPRAZOLE SOD 40 MG TABEC PO SCH (08:26)
[2018-03-09] MEDS: CEFDINIR 300 MG CAP PO SCH ×2 (08:26→20:33)
[2018-03-09] MEDS: DILTIAZEM CD 180 MG CAPCR PO SCH (08:26)
[2018-03-09] MEDS: POTASSIUM CHL 10 MEQ TABCR PO SCH ×2 (08:26→17:23)
[2018-03-09] MEDS: BENAZEPRIL HCL 20 MG TAB PO SCH (08:26)
--- NOTE | 2018-03-09 08:37 | Hospitalist Progress Note ---
Subjective Progress Notes Subjective The patient is feeling better overall. Sitting at the bedside eating breakfast. She notes that any time she moves, her heart rate jumps up and she feels short of breath. Physical Exam Vital Signs Date Time Temp Pulse Resp B/P (MAP) Pulse Ox O2 Delivery O2 Flow Rate FiO2 03/09/18 07:27 111 03/09/18 07:16 94 High-Flow Nasal Cannula 2.0 03/09/18 07:08 98.0 16 146/63 (90) 03/09/18 05:59 35.0 General Appearance: Alert, Awake, No Acute Distress, Afebrile Neuro: No Gross deficits Cardiovascular: Other (Irregularly irregular, tachycardic.) Respiratory: Other (Decreased breath sounds with squeaks and wheezes scattered through.) GI: Soft and Non-Tender Extremities: Warm, Perfused Psych: Appropriate Mood & Affect Result Diagram: 03/09/1835 03/09/1835 Assessment and Plan Problems: (1) COPD with exacerbation Status: Acute Assessment & Plan: She does have a history of severe COPD and presented with increased shortness of breath. She is on treatment with nebulizers and IV Solu Medrol. She was converted to oral prednisone on 2 occasions but her wheezing worsened and she had to be placed back on IV solumedrol. She is getting nebulizer treatments 4 times daily with prns as well. CXR 03/08 continues to show bibasilar infiltrates. Her O2 requirements have decreased and she is currently on 2 L per NC. She does wear BiPAP at HS. (2) Right lower lobe pneumonia Status: Acute Assessment & Plan: Her chest x-ray revealed an infiltrate on the right. She has been on treatment with ceftriaxone and azithromycin. We converted her to oral cefdinir and azithromycin on 03/07. (3) Heart failure with preserved left ventricular function (HFpEF) Status: Acute Assessment & Plan: She did have an elevated BNP. Her echocardiogram is reported to show a preserved ejection fraction, but pulmonary hypertension. Her weights remain elevated above her baseline. We have started her on scheduled oral Lasix starting on 03/07. However, it will be held until her potassium is replaced today. Also, will start spironolactone. (4) Upper GI bleed Status: Acute Assessment & Plan: The patient has a h/o PUD. She had about 300cc of dark blood from the NG on 02/28. Hgb did drop from 13.3 to 11. Lovenox was stopped and she was given 2 units of FFP. She is on Protonix and Carafate. Will stop Carafate. Hgb has been stable. On SCD for VTE prophylaxis. (5) Hypokalemia Status: Acute Assessment & Plan: She is on oral replacement. Adding spironolactone. Will follow. (6) Supraventricular tachycardia Status: Acute Assessment & Plan: She was noted to be in a narrow complex tachycardia during her code event. She converted to sinus rhythm after receiving adenosine. She has continued to have short runs of SVT in the ICU. She was placed on a diltiazem drip initially, but was converted to oral therapy on 03/04. Now titrating up the diltiazem. Dr. Zelaya spoke with Cardiology (Dr. Gutiérrez) who agreed with the plan and recommended Cardiology follow up as an outpatient. He also recommended ASA, but because of her GI bleed, didn't think it was needed at this time or Plavix. She continues to have elevated heart rates briefly as high as 160s with any exertion. Will talk with cardio again about next step for controlling her heart rate. Her oral diltiazem is at 360mg daily. (7) Cardiorespiratory arrest Status: Acute Assessment & Plan: She did suffer a pulseless arrest on 02/28/18. This was likely secondary to SVT with rates over 200 by telemetry report. Echo shows an EF of 55%, and no wall motion abnormalities. The troponins were in the borderline area and relatively unchanged from admission. (8) Acute respiratory failure Status: Resolved Assessment & Plan: She was intubated on 02/28/18 during a code. She extubated herself on 03/02. She currently is wearing BiPAP intermittently. (9) Elevated troponin Assessment & Plan: She has had an elevated troponin, but these have not trended in a pattern consistent with infarction. It is likely secondary to her chronic kidney disease. (10) Hypertension Status: Chronic Assessment & Plan: She had been on diuretics, amlodipine and benazepril, which have been on hold. She has been started on diltiazem as above. We have also restarted her benazepril. (11) Anxiety Status: Chronic Assessment & Plan: She has been on chronic fluoxetine and alprazolam. (12) Depression Status: Chronic Assessment & Plan: She has been on the fluoxetine. (13) Hypothyroidism Status: Chronic Assessment & Plan: She is on chronic treatment with Synthroid. (14) CKD (chronic kidney disease), stage III Status: Chronic Assessment & Plan: Her current creatinine is 1.0. Her BUN is elevated likely due to diuresis. Will continue to monitor closely. Time Spent on Plan of Care: < 30 min Exam Sepsis Risk: Sepsis Risk Problem Qualifiers (1) Hypertension: Hypertension type: essential hypertension Qualified Codes: I10 - Essential ( primary) hypertension JAVIER SALAS MD Mar 09, 2018 08:37
--- NOTE | 2018-03-09 08:57 | Antimicrobial Stewardship ---
Antimicrobial Time Out Antimicrobial Stewardship MD Service: Hospitalist Indications: HAP, Other (s/p intubation) Antimicrobial Used Ceftriaxone and Azithromycin, changed to azithromycin and imipenem/cilastatin Start Date: Mar 04, 2018 Culture Results: N/A Eligible for PO Conversion Eligable for PO Conversion: Yes Reviewed with Provider Reviewed w/ Provider on Rounds: Yes Date Reviewed w/ Provider: Mar 09, 2018 Comments Comments 77 yo F with significant COPD developed R basilar infiltrate s/p extubation. Coverage broadened on 03/04. Azithromycin added on 03/04 and imipenem added on . Has been de-escalated to oral azithromycin and oral cefdinir. Today is day 6 based on development of infiltrate on 03/04, continue abx for 10 days. Discussed with MD. Alisson Watson, PharmD, BCOP ALISSON WATSON Mar 05, 2018 09:17
[2018-03-09] MEDS ORDERED: POTASSIUM CHL 10 MEQ TABCR PO SCH (11:30)
[2018-03-09 14:27] VITALS: BP 150/86
--- NOTE | 2018-03-09 14:51 | Medical Nutrition Therapy ---
Nutrition Anthropometrics Height (Inches): 64.00 Height (Calculated Centimeters: 162.901939 Weight (Pounds): 182 Weight (Calculated Kilograms): 82.554 BMI Calculated: 27.63 Bird Nutrition Score: Probably Inadequate Bird Nutrition Risk Score: 16 Dietary Referral Nutrition Risk Factors: Nutrition Risk Comment: Nutritional Diagnosis Nutritional Risk Acuity 3: COPD Unstable Past Medical History: HX of depression, anxiety, HTN, and GI bleed/ulcer, CKD- 3, COPD Nutritional Acuity: 3-Mild Nutrition Diagnosis: Increased Nutrient Needs Nutrition Etiology: Inadeq. Food/Shae Intake Nutrition Problem/Etiology/Sym: increased nutrient needs related to COPD with exacerbation on BiPAP during the day. Energy Requirement: 1860 (kcal/day (23 kcal/kg)- [place] St Jeor RMR (1292) AF 1.2, IF 1.2) Protein Requirement: 82 (g protein/day (1.0 g/kg)) Fluid Requirement: 2470 (mL/day (30 mL/kg)) Diet Type: Diet as Tolerated FABIOLA/REG Nutrition Intervention: Cont diet as ordered, Encourage intake Food Likes: likes mighty shakes Food Dislikes: Dislikes chocolate ensure Diet Comment To [facility]: OFFER VANILLA NUTRITION SUPPLEMENT Nutrition Monitoring & Eval RD Patient Assessment Time: [address] Assessment Type: RD Re-Assessment Patient Nutrition Acuity: 2-Moderate Follow Up Date: Mar 12, 2018 Nutritional Comment: Pt admitted for COPD exacerbation. Pt on regualr diet but no intake reported at this time. BNP elevated at 650. BMI is in overwt range. Will cont to monitor and encourage intake. 03/01 Pt transferred to ICU after cardiac arrest episode. BNP 447, Alb 2.9, High AST/ALT. Pt NPO d/t intubation and sedation. Plan to wean today. Follow clinical progress, labs, etc. 03/03 Pt remains admitted in ICU on BiPAP. Pt diet advanced to FABIOLA. Pt currently tolerating clear liquids. BUN elevated at 42. Albumin was low but is increasing. Pt intakes not currently meeting estimated need. Continue to monitor and encourage increased intake. 03/05 Pt diet as tolerated. Recorded intakes report pt continues to only consume liquids at this time. Search Strategist visited pt room. Pt consuming eggs with toast. Search Strategist encouraged pt to consume protein on each meal tray to encourage strength and healing. Pt reports that she has tried chocolate ensure and dislikes the flavor but is willing to try vanilla ensure. Search Strategist will continue to monitor pt intake and progress. 03/09 Pt continues on diet as tolerated consuming 50-100% of all meals. Pt states that she has been trying to increase her intake and consume a protein on each meal tray. Pt states that she does not love the vanilla ensure but has been tolerating drinking some of the ensure. Search Strategist encouraged pt to continue to drink ensure to increase protein intake to accommodate for increased needs for healing. Continue to monitor pt intake and clinical progress. PHOENIX KENNEY Mar 09, 2018 13:57
[2018-03-09 19:48] VITALS: BP 152/80
[2018-03-09] MEDS: DILTIAZEM CD 120 MG CAPCR PO SCH (20:33)
[2018-03-09] MEDS: ALPRAZolam 0.5 MG TAB PO SCH (20:33)
[2018-03-09] MEDS ORDERED: DILTIAZEM CD 180 MG CAPCR PO SCH (21:00)
[2018-03-09 22:59] VITALS: BP 139/68
[2018-03-10] MEDS: methylPREDNIS SUCC 125 MG/2ML IVP SCH ×2 (04:08→15:18)
[2018-03-10 04:14] VITALS: BP 147/66
[2018-03-10] MEDS: SALMETEROL/FLUTIC 250/50 1 INH INH SCH ×2 (05:35→17:07)
[2018-03-10] MEDS: LEVALBUTEROL 1.25 MG/3 ML NEB NEB SCH ×4 (05:35→17:07)
[2018-03-10 06:07] LABS: PLATELET COUNT, AUTOMATED 168 K/uL (150-450)
[2018-03-10] MEDS: LEVOTHYROXINE SOD 0.1 MG TAB PO SCH (06:09)
[2018-03-10 08:14] VITALS: BP 157/71
[2018-03-10] MEDS: POTASSIUM CHL 10 MEQ TABCR PO SCH ×2 (08:45→17:46)
[2018-03-10] MEDS: BENAZEPRIL HCL 20 MG TAB PO SCH (08:47)
[2018-03-10] MEDS: DILTIAZEM CD 120 MG CAPCR PO SCH ×2 (08:48→21:32)
[2018-03-10] MEDS: FLUoxetine HCL 20 MG CAP PO SCH (08:49)
[2018-03-10] MEDS: CEFDINIR 300 MG CAP PO SCH ×2 (08:49→21:32)
[2018-03-10] MEDS: FUROSEMIDE 20 MG TAB PO SCH (08:50)
[2018-03-10] MEDS: SPIRONOLACTONE 25 MG TAB PO SCH (08:50)
[2018-03-10] MEDS: PANTOPRAZOLE SOD 40 MG TABEC PO SCH (08:51)
[2018-03-10 11:20] VITALS: BP 149/103
--- NOTE | 2018-03-10 13:19 | Hospitalist Progress Note ---
Subjective Progress Notes Subjective She reports slight improvements in activity tolerance. HR has been better controlled. Physical Exam Vital Signs Date Time Temp Pulse Resp B/P (MAP) Pulse Ox O2 Delivery O2 Flow Rate FiO2 03/10/18 11:20 98.1 89 22 149/103 (118) 94 High-Flow Nasal Cannula 2.0 03/09/18 09:05 35.0 Intake and Output 03/11/18 07:00 Intake Total 360 ml Output Total 350 ml Balance 10 ml Intake Oral 360 ml Output Urine Total 350 ml General Appearance: Alert, Awake Neuro: No Gross deficits Cardiovascular: Other (Regular with fairly frequent ectopy) Respiratory: Other (decreased breath sounds with bilateral wheezing/prolonged expiratory phase) GI: Soft and Non-Tender Extremities: Warm, Perfused Psych: Alert & Oriented X3 Result Diagram: 03/10/1843 03/10/18 05 Assessment and Plan Problems: (1) COPD with exacerbation Status: Acute Assessment & Plan: She does have a history of severe COPD and presented with increased shortness of breath. She is on treatment with nebulizers and IV Solu- Medrol. She was converted to oral prednisone on 2 occasions, but her wheezing worsened and she had to be placed back on IV steroids. She is getting nebulizer treatments 4 times daily with as needed as well. CXR 03/08 continued to show bibasilar infiltrates. Her O2 requirements have decreased and she is currently on 2L per NC. She does wear BiPAP at HS. We will start mobilizing. (2) Right lower lobe pneumonia Status: Acute Assessment & Plan: Her chest x-ray revealed an infiltrate on the right. She has been on treatment with ceftriaxone and azithromycin. We converted her to oral cefdinir and azithromycin on 03/07. (3) Heart failure with preserved left ventricular function (HFpEF) Status: Acute Assessment & Plan: She did have an elevated BNP. Her echocardiogram showed a preserved ejection fraction, but pulmonary hypertension. Her weights remain elevated above her baseline. We started her on scheduled oral Lasix initially and added spironolactone. Will now stop the Lasix, watch I/Os and weights, as well as labs. (4) Upper GI bleed Status: Acute Assessment & Plan: The patient has a h/o PUD. She had about 300cc of dark blood from the NG on 02/28. Hgb did drop from 13.3 to 11. Lovenox was stopped and she was given 2 units of FFP. She was on Protonix and Carafate (we stopped Carafate). Hgb has been stable. On SCD for VTE prophylaxis. (5) Hypokalemia Status: Acute Assessment & Plan: She is on oral replacement and added spironolactone. Will follow labs. (6) Supraventricular tachycardia Status: Acute Assessment & Plan: She was noted to be in a narrow complex tachycardia during her code event. She converted to sinus rhythm after receiving adenosine. She continued to have short runs of SVT in the ICU. She was placed on a diltiazem drip initially, but was converted to oral therapy on 03/04. Dr. Zelaya spoke with Cardiology (Dr. Gutiérrez) who agreed with the plan and recommended Cardiology follow up as an outpatient. He also recommended ASA, but because of her GI bleed, didn't think it was needed at this time (or Plavix). She continues to have some ectopy, but overall HR is improved. She is currently on max dose diltiazem ER 240mg BID. (7) Cardiorespiratory arrest Status: Acute Assessment & Plan: She did suffer a pulseless arrest on 02/28/18. This was likely secondary to SVT with rates over 200 by telemetry report. Echo shows an EF of 55%, and no wall motion abnormalities. The troponins were in the borderline area and relatively unchanged from admission. (8) Acute respiratory failure Status: Resolved Assessment & Plan: She was intubated on 02/28/18 during a code. She extubated herself on 03/02. She currently is wearing BiPAP intermittently. (9) Elevated troponin Assessment & Plan: She has had an elevated troponin, but these have not trended in a pattern consistent with infarction. (10) Hypertension Status: Chronic Assessment & Plan: She had been on diuretics, amlodipine and benazepril, which had been on hold. She has been started on diltiazem as above. We have also now restarted her benazepril. (11) Anxiety Status: Chronic Assessment & Plan: She has been on chronic fluoxetine and alprazolam. (12) Depression Status: Chronic Assessment & Plan: She has been on the fluoxetine. (13) Hypothyroidism Status: Chronic Assessment & Plan: She is on chronic treatment with Synthroid. (14) CKD (chronic kidney disease), stage III Status: Chronic Assessment & Plan: Her current creatinine is 1.0. Her BUN is elevated likely due to diuresis. Will continue to monitor closely. Exam Sepsis Risk: Sepsis Risk Problem Qualifiers (1) Hypertension: Hypertension type: essential hypertension Qualified Codes: I10 - Essential ( primary) hypertension TAM SALAS MD Mar 10, 2018 13:19
[2018-03-10 15:17] VITALS: BP 132/58
[2018-03-10 19:50] VITALS: BP 132/64
[2018-03-10] MEDS: ALPRAZolam 0.5 MG TAB PO SCH (21:32)
[2018-03-10] MEDS: ACETAMINOPHEN 325 MG TAB PO PRN (21:32)
[2018-03-10 23:48] VITALS: BP 142/57
[2018-03-11] MEDS: methylPREDNIS SUCC 125 MG/2ML IVP SCH ×2 (04:21→16:23)
[2018-03-11 04:23] VITALS: BP 135/63
[2018-03-11] MEDS: LEVOTHYROXINE SOD 0.1 MG TAB PO SCH (05:33)
[2018-03-11] MEDS: LEVALBUTEROL 1.25 MG/3 ML NEB NEB SCH ×4 (05:50→16:49)
[2018-03-11] MEDS: SALMETEROL/FLUTIC 250/50 1 INH INH SCH ×2 (05:50→16:49)
[2018-03-11 06:05] LABS: PLATELET COUNT, AUTOMATED 155 K/uL (150-450)
[2018-03-11] MEDS: POTASSIUM CHL 10 MEQ TABCR PO SCH ×2 (09:55→17:24)
[2018-03-11] MEDS: PANTOPRAZOLE SOD 40 MG TABEC PO SCH (09:55)
[2018-03-11] MEDS: FLUoxetine HCL 20 MG CAP PO SCH (09:55)
[2018-03-11] MEDS: CEFDINIR 300 MG CAP PO SCH ×2 (09:55→21:41)
[2018-03-11] MEDS: FUROSEMIDE 20 MG TAB PO SCH (09:55)
[2018-03-11] MEDS: SPIRONOLACTONE 25 MG TAB PO SCH (09:55)
[2018-03-11] MEDS: DILTIAZEM CD 120 MG CAPCR PO SCH ×2 (09:55→21:41)
[2018-03-11 11:06] VITALS: BP 143/64
--- NOTE | 2018-03-11 14:26 | Hospitalist Progress Note ---
Subjective Progress Notes Subjective Overall feeling better with less SOB. Physical Exam Vital Signs Date Time Temp Pulse Resp B/P (MAP) Pulse Ox O2 Delivery O2 Flow Rate FiO2 03/11/18 13:20 78 18 03/11/18 13:14 94 Nasal Cannula 3.5 03/11/18 11:06 98.3 143/64 (90) 03/11/18 09:18 35.0 Intake and Output 03/12/18 07:00 Intake Total 0 ml Balance 0 ml Intake Oral 0 ml General Appearance: Alert, Awake, Other (mild work of breathing) Respiratory: Other (diffuse exp wheezes bilaterally) Extremities: Edema (1+ pitting in prox/post thighs) Result Diagram: 03/11/18 0532 03/11/18 0532 Assessment and Plan Problems: (1) COPD with exacerbation Status: Acute Assessment & Plan: She does have a history of severe COPD and presented with increased shortness of breath. She is on treatment with nebulizers and IV Solu- Medrol. She was converted to oral prednisone on 2 occasions, but her wheezing worsened and she had to be placed back on IV steroids. She is getting nebulizer treatments 4 times daily with as needed as well. CXR 03/08 continued to show bibasilar infiltrates. Her O2 requirements have decreased and she is currently on 2L per NC. She does wear BiPAP at HS. We will start mobilizing. (2) Right lower lobe pneumonia Status: Acute Assessment & Plan: Her chest x-ray revealed an infiltrate on the right. She has been on treatment with ceftriaxone and azithromycin. We converted her to oral cefdinir and azithromycin on 03/07. (3) Heart failure with preserved left ventricular function (HFpEF) Status: Resolved Assessment & Plan: She did have an elevated BNP. Her echocardiogram showed a preserved ejection fraction, but pulmonary hypertension. Her weights remain elevated above her baseline. We started her on scheduled oral Lasix initially and added spironolactone. Continue daily wts. (4) Upper GI bleed Status: Acute Assessment & Plan: The patient has a h/o PUD. She had about 300cc of dark blood from the NG on 02/28. Hgb did drop from 13.3 to 11. Lovenox was stopped and she was given 2 units of FFP. She was on Protonix and Carafate (we stopped Carafate). Hgb has been stable. On SCD for VTE prophylaxis. (5) Hypokalemia Status: Acute Assessment & Plan: She is on oral replacement and added spironolactone. Will follow labs. (6) Supraventricular tachycardia Status: Acute Assessment & Plan: She was noted to be in a narrow complex tachycardia during her code event. She converted to sinus rhythm after receiving adenosine. She continued to have short runs of SVT in the ICU. She was placed on a diltiazem drip initially, but was converted to oral therapy on 03/04. Dr. Chapman spoke with Cardiology (Dr. Gutiérrez) who agreed with the plan and recommended Cardiology follow up as an outpatient. He also recommended ASA, but because of her GI bleed, didn't think it was needed at this time (or Plavix). She continues to have some ectopy, but overall HR is improved. She is currently on max dose diltiazem ER 240mg BID. (7) Cardiorespiratory arrest Status: Acute Assessment & Plan: She did suffer a pulseless arrest on 02/28/18. This was likely secondary to SVT with rates over 200 by telemetry report. Echo shows an EF of 55%, and no wall motion abnormalities. The troponins were in the borderline area and relatively unchanged from admission. (8) Acute respiratory failure Status: Resolved Assessment & Plan: She was intubated on 02/28/18 during a code. She extubated herself on 03/02. She currently is wearing BiPAP intermittently. (9) Elevated troponin Assessment & Plan: She has had an elevated troponin, but these have not trended in a pattern consistent with infarction. (10) Hypertension Status: Chronic Assessment & Plan: She had been on diuretics, amlodipine and benazepril, which had been on hold. She has been started on diltiazem as above. We had restarted her benazepril, but will stop because of increasing creatinine and need for aggressive diuresis. (11) Anxiety Status: Chronic Assessment & Plan: She has been on chronic fluoxetine and alprazolam. (12) Depression Status: Chronic Assessment & Plan: She has been on the fluoxetine. (13) Hypothyroidism Status: Chronic Assessment & Plan: She is on chronic treatment with Synthroid. (14) CKD (chronic kidney disease), stage III Status: Chronic Assessment & Plan: Her current creatinine is 1.1. Her BUN is elevated likely due to diuresis. Will continue to monitor closely. Exam Sepsis Risk: No Definite Risk Problem Qualifiers (1) Hypertension: Hypertension type: essential hypertension Qualified Codes: I10 - Essential ( primary) hypertension DOLORES CHAPMAN MD Mar 11, 2018 14:26
[2018-03-11 17:18] VITALS: BP 138/65
[2018-03-11 19:29] VITALS: BP 129/72
[2018-03-11] MEDS: ACETAMINOPHEN 325 MG TAB PO PRN (21:41)
[2018-03-11] MEDS: ALPRAZolam 0.5 MG TAB PO SCH (21:41)
[2018-03-11 22:42] VITALS: BP 139/65
[2018-03-12] MEDS: methylPREDNIS SUCC 125 MG/2ML IVP SCH (04:39)
[2018-03-12 04:43] VITALS: BP 158/73
[2018-03-12] MEDS: SALMETEROL/FLUTIC 250/50 1 INH INH SCH (05:56)
[2018-03-12] MEDS: LEVALBUTEROL 1.25 MG/3 ML NEB NEB SCH ×2 (05:56→09:05)
[2018-03-12] MEDS: LEVOTHYROXINE SOD 0.1 MG TAB PO SCH (06:18)
[2018-03-12 06:34] LABS: PLATELET COUNT, AUTOMATED 155 K/uL (150-450)
[2018-03-12 07:22] VITALS: BP 117/59
[2018-03-12] MEDS: CEFDINIR 300 MG CAP PO SCH (08:57)
[2018-03-12] MEDS: POTASSIUM CHL 10 MEQ TABCR PO SCH (08:57)
[2018-03-12] MEDS: SPIRONOLACTONE 25 MG TAB PO SCH (08:58)
[2018-03-12] MEDS: FLUoxetine HCL 20 MG CAP PO SCH (08:58)
[2018-03-12] MEDS: DILTIAZEM CD 120 MG CAPCR PO SCH (08:58)
[2018-03-12] MEDS: PANTOPRAZOLE SOD 40 MG TABEC PO SCH (08:58)
[2018-03-12] MEDS: FUROSEMIDE 20 MG TAB PO SCH (08:58)
[2018-03-12] MEDS ORDERED: ACET-2007 PO (11:36)
[2018-03-12] MEDS ORDERED: ALPR-448 PO (11:36)
[2018-03-12] MEDS ORDERED: FURO-45 PO (11:36)
[2018-03-12] MEDS ORDERED: CEF300 PO (11:36)
[2018-03-12] MEDS ORDERED: PANT40TA65 PO (11:36)
[2018-03-12] MEDS ORDERED: DILT120C18 PO (11:36)
[2018-03-12] MEDS ORDERED: SPIR25TA78 PO (11:36)
[2018-03-12] MEDS ORDERED: POTA-23 PO (11:36)
[2018-03-12] MEDS ORDERED: PRED20TA6 PO (11:36)
--- NOTE | 2018-03-12 11:48 | Hospitalist Depart ---
Discharge Summary Reason for Hosp/Final Diag: (1) COPD with exacerbation Status: Acute Hospital Course & Plan: She does have a history of severe COPD and presented with increased shortness of breath. She was placed on treatment with nebulizers and IV Solu-Medrol. She was converted to oral prednisone on 2 occasions, but her wheezing worsened and she had to be placed back on IV steroids. She is getting nebulizer treatments 4 times daily with as needed as well. CXR 03/08 continued to show bibasilar infiltrates. Her O2 requirements have decreased and she is currently on 2L per NC. She does wear BiPAP at . We started mobilizing , but she had some difficulty tolerating. She has been working with PT/OT. They recommended ongoing rehabilitative therapy. [facility]rangements [facility]. (2) Right lower lobe pneumonia Status: Acute Hospital Course & Plan: Her chest x-ray revealed an infiltrate on the right. She has been on treatment with ceftriaxone and azithromycin. We converted her to oral cefdinir and azithromycin on 03/07. She will complete therapy on 03/14/18. (3) Heart failure with preserved left ventricular function (HFpEF) Status: Resolved Hospital Course & Plan: She did have an elevated BNP. Her echocardiogram showed a preserved ejection fraction, but pulmonary hypertension. Her weights remain elevated above her baseline. We started her on scheduled oral Lasix initially and added spironolactone. She will need lab monitored periodically while on ECF. (4) Upper GI bleed Status: Acute Hospital Course & Plan: The patient has a history of PUD. She had about 300cc of dark blood from the NG on 02/28/18. Hgb did drop from 13.3 to 11. Her Lovenox was stopped and she was given 2 units of FFP. She was on Protonix and Carafate (we stopped Carafate). Hgb has been stable. On SCD for VTE prophylaxis. (5) Hypokalemia Status: Acute Hospital Course & Plan: She is on oral replacement and added spironolactone. Will follow labs. (6) Supraventricular tachycardia Status: Acute Hospital Course & Plan: She was noted to be in a narrow complex tachycardia during her code event. She converted to sinus rhythm after receiving adenosine. She continued to have short runs of SVT in the ICU. She was placed on a diltiazem drip initially, but was converted to oral therapy on 03/04. Dr. Zelaya spoke with Cardiology (Dr. Gutiérrez) who agreed with the plan and recommended Cardiology follow up as an outpatient. He also recommended ASA, but because of her GI bleed, didn't think it was needed at this time (or Plavix) . She continues to have some ectopy, but overall HR is improved. She is currently on max dose diltiazem ER 240mg BID. (7) Cardiorespiratory arrest Status: Acute Hospital Course & Plan: She did suffer a pulseless arrest on 02/28/18. This was likely secondary to SVT with rates over 200 by telemetry report. Echo shows an EF of 55%, and no wall motion abnormalities. The troponins were in the borderline area and relatively unchanged from admission. (8) Acute respiratory failure Status: Resolved Hospital Course & Plan: She was intubated on 02/28/18 during a code. She extubated herself on 03/02. She currently is wearing BiPAP intermittently. (9) Elevated troponin Hospital Course & Plan: She has had an elevated troponin, but these have not trended in a pattern consistent with infarction. (10) Hypertension Status: Chronic Hospital Course & Plan: She had been on diuretics, amlodipine and benazepril, which had been on hold. She has been started on diltiazem as above. We had restarted her benazepril, but then stopped again because of increasing creatinine and need for aggressive diuresis. (11) Anxiety Status: Chronic Hospital Course & Plan: She has been on chronic fluoxetine and alprazolam. (12) Depression Status: Chronic Hospital Course & Plan: She has been on the fluoxetine. (13) Hypothyroidism Status: Chronic Hospital Course & Plan: She is on chronic treatment with Synthroid. (14) CKD (chronic kidney disease), stage III Status: Chronic Hospital Course & Plan: Her current creatinine is 1.2. Her BUN is elevated likely due to diuresis. Will continue to monitor closely. Departure Weight (Pounds): 183 Weight (Ounces): 3.0 Result Diagram: 03/12/1860403/12/18604 Item Value Date Time White Blood Count 9.1 k/uL 02/28/18415 Hemoglobin 13.3 g/dL 02/28/18415 Hematocrit 40.4 % 4/7/18 0416 Platelet Count 268 K/uL 02/28/18 0416 Albumin 3.9 g/dl 02/28/18 0416 Total Protein 6.7 gm/dl 02/28/18 0416 Troponin I 0.047 ng/ml 02/28/18 0416 Alkaline Phosphatase 93 U/L 02/28/18 0416 Alanine Aminotransferase (ALT/SGPT) 45 U/L 02/28/18 0416 Aspartate Amino Transf (AST/SGOT) 45 U/L H 02/28/18 0416 Total Bilirubin 0.2 mg/dl 02/28/18 0416 Magnesium Level 2.3 mg/dl H 02/28/18 0416 Calcium Level 10.3 mg/dl H 02/28/18 0416 Random Glucose 214 mg/dl H 02/28/18 0416 Glomerular Filtration Rate Calc 43.6 02/28/18 0416 Creatinine 1.20 mg/dl H 02/28/18 0416 Blood Urea Nitrogen 28 mg/dl H 02/28/18 0416 Carbon Dioxide Level 26 mmol/L 02/28/18 0416 Chloride Level 98 mmol/L 02/28/18 0416 Sodium Level 140 mmol/L 02/28/18 0416 Potassium Level 3.8 mmol/L 02/28/18 0416 Troponin I 0.070 ng/ml 02/28/18 1105 Troponin I 0.068 ng/ml 02/28/18 1712 Troponin I 0.044 ng/ml 03/01/18 0510 B-Type Natriuretic Peptide 447 pg/ml H 03/01/18 0510 B-Type Natriuretic Peptide 989 pg/ml H 02/28/18 0416 B-Type Natriuretic Peptide 1040 pg/ml H 03/07/18 0543 B-Type Natriuretic Peptide 1120 pg/ml H 03/06/18 0508 D-Dimer Quantitative (PE/DVT) 1.13 ug/ml H 02/28/18 0416 Imaging PATIENT NAME: LIEN FRANKLIN : [id number] MR: [id number] V: [id number] EXAM DATE: ORDERING PHYSICIAN: JAVIER SALAS TECHNOLOGIST: Lucero Arceo EXAMINATION: T WO-DIMENSIONAL ECHOCARDIOGRAPH REASON: ELEVATED BNP/POSSIBLE PULMONARY HTN 2D Measurements (normal values in centimeters) LV end LV end RV end Vent. LV Post Aortic Left Percent Diastolic Systolic Diastolic Septum Wall Root Atrium Shortening (3.5-5.7) (0.9-2.6) (0.6-1.1) (0.6-1.1) (2.0-3.7) (1.9-4.0) (25-35%) 4.71 3.13 3.1 1.0 1.3 2.3 3.8 33.5% STROKE VOLUME: 60.7ml ESTIMATED EJECTION FRACTION: 55% PARASTERNAL LONG AXIS: Overall left ventricular systolic function does appear to be normal. Right ventricle appears to be the upper range of normal in size if not slightly enlarged. The aortic valve & mitral valve both appear to open normally. The patient appears to be in sinus rhythm. No wall motion abnormalities are noted. Right ventricular function appears to be normal. The TAPSE measured at 2.5. Mild mitral annular calcification is noted. Color examination of the valves reveals some mitral insufficiency as well as a trace of aortic insufficiency present. There is also some tricuspid insufficiency. PARASTERNAL SHORT AXIS: Overall left ventricular systolic function again appears to be normal. Right ventricle appears to be borderline enlarged if not slightly enlarged. The aortic valve is not well seen but it is probably trileaflet in configuration with some aortic insufficiency noted. APICAL FOUR AND TWO CHAMBER: Normal left ventricular ejection fraction. Aortic valve area & mitral valve area both measure within normal ranges at 2.5 & 3.4cm2 respectively. The tricuspid regurgitation Vmax measured 3.54m/sec. Estimated right atrial pressures of 3mm Hg giving a total right atrial pressure of 53mm Hg. Left atrial volume is the upper range of normal in size. Right atrial volume is also the upper range of normal in size. Mild left ventricular thickening is noted. No evidence for any outflow tract obstruction. Mild amount of tricuspid insufficiency is noted. There is a moderate amount of mitral insufficiency noted. View is somewhat directed toward the free wall of the left atrium. There is mitral annular calcification. Mitral valve area measured within normal ranges at 3.4cm2 respectively. Aortic insufficiency is also noted. SUBCOSTAL VIEW: No pericardial effusion was noted. No atrioseptal or ventriculoseptal defects were appreciated. Doppler examination of the mitral valve in diastole does reveal the A wave > E wave indicates that there is reversal with Valsalva maneuver suggesting decreased diastolic function. Aortic insufficiency pressure half time was measured 464msec. OVERALL IMPRESSION: 1. Normal left ventricular ejection fraction of 55% with a moderate decrease in diastolic function. 2. Borderline to mildly enlarged right ventricle with the other chamber sizes being normal. The left atrial & right atrial volumes are measured the upper range of normal. 3. A trileaflet aortic valve with no aortic stenosis but a moderate amount of aortic insufficiency. 4. Mild mitral annular calcification but no stenosis & a moderate amount of mitral insufficiency. 5. A mild amount of tricuspid insufficiency with estimated right systolic pressures at 53mm Hg which does include an estimated right atrial pressure of 3mm Hg indicating moderate pulmonary hypertension & increased right ventricular systolic pressures. 6. A trace of pulmonic insufficiency. 7. Mild left ventricular thickening but no evidence for any outflow tract obstruction. Dictated by: Dianna Anders M.D. on 03/02/2018 at 10:29 Transcribed by: FREDDY on 03/02/2018 at 11:15 Approved by: Dianna Anders M.D. on 03/02/2018 at 14:03 [facility] EKG PATIENT NAME: LIEN FRANKLIN : [id number] MR: [id number] V: [id number] EXAM DATE: ORDERING PHYSICIAN: ROB RIVERO TECHNOLOGIST: MARIETTA Test Reason : SOB Blood Pressure : / mmHG Vent. Rate : 083 BPM Atrial Rate : 083 BPM P-R Int : 144 ms QRS Dur : 090 ms QT Int : 388 ms P-R-T Axes : 059 -72 068 degrees QTc Int : 455 ms Normal sinus rhythm Possible Left atrial enlargement Left axis deviation Septal infarct , age undetermined Abnormal ECG When compared with ECG of 26-FEB-2018 10:01, premature supraventricular complexes are no longer present Confirmed by JAVIER VENEGAS ([id number]) on 02/27/2018 6:27:13 AM Referred By: MAT Confirmed By:JAVIER VENEGAS Condition: Improved Discharge: [facility] PT/OT Follow Up For: PT For Strengthening, OT For ADL's Follow-Up Labs: Other (CBC, CMP in 2-3 days) Time Spent: > 30 min Discharge Instructions Home Meds Active Scripts Prednisone (PREDNISONE) 20 Mg Tablet, 40 MG PO QDAY for 7 Days, TAB Prov:TAM SALAS MD 03/12/18 Spironolactone (SPIRONOLACTONE) 25 Mg Tablet, 25 MG PO QDAY for 30 Days, TAB Prov:TAM SALAS MD 03/12/18 Potassium Chloride (KLOR-CON 10) 10 Meq Tablet.er, 20 MEQ PO BIDBS for 10 Days, TAB Prov:TAM SALAS MD 03/12/18 Pantoprazole Sodium (PANTOPRAZOLE SODIUM) 40 Mg Tablet.dr, 40 MG PO QDAY for 30 Days, TAB Prov:TAM SALAS MD 03/12/18 Furosemide (FUROSEMIDE) 20 Mg Tablet, 20 MG PO QDAY for 30 Days, TAB Prov:TAM SALAS MD 03/12/18 Diltiazem Hcl (DILTIAZEM 24HR CD) 120 Mg Cap.er.24h, 240 MG PO BID for 30 Days, CAP Prov:TAM SALAS MD 03/12/18 Cefdinir 300 Mg Cap (OMNICEF 300 MG CAP (OR EQUIV)) 300 Mg Cap, 300 MG PO BID for 2 Days, CAP Prov:TAM SALAS MD 03/12/18 Alprazolam 0.5 Mg Tab (ALPRAZOLAM 0.5 MG TAB) 0.5 Mg Tablet, 0.5 MG PO HS for 30 Days, TAB Prov:TAM SALAS MD 03/12/18 Acetaminophen (MAPAP) 325 Mg Tablet, 650 MG PO Q6H Y for FEVER/PAIN for 30 Days , TAB Prov:TAM SALAS MD 03/12/18 Fluoxetine Hcl (PROZAC) 20 Mg Capsule, 20 MG PO QDAY, #90 CAPSULE 1 Refill Prov:GRACE TERRAZAS MD 02/03/18 Fluticasone/Salmeterol (ADVAIR 250-50 DISKUS) 1 Each Disk.w.dev, 1 PUFF IH BID, #3 INH 3 Refills Prov:GRACE TERRAZAS MD 01/05/18 Reported Medications Vit A/Vit C/Vit E/Zinc/Copper (PRESERVISION AREDS SOFTGEL) 1 Each Capsule, 1 EACH PO DAILY, CAPSULE 02/26/18 Oxygen (OXYGEN) Inha, 2 L INH, L 11/21/17 Levothyroxine Sodium (LEVOTHYROXINE SODIUM) 100 Mcg Tablet, 100 MCG PO QDAY, TAB 06/04/17 Discontinued Scripts Benazepril Hcl (BENAZEPRIL HCL) 40 Mg Tablet, 40 MG PO QDAY, #5 TAB 0 Refills Prov:GRACE TERRAZAS MD 02/25/18 Alprazolam (ALPRAZOLAM) 0.5 Mg Tab.rapdis, 0.5 MG PO QAM for Anxiety MDD .5 mg for 60 Days, #60 TAB Prov:GRACE TERRAZAS MD 01/20/18 Umeclidinium [place] (Incruse Ellipta) 62.5 Mcg Blst.w.dev, 1 INH INH DAILY, #1 INH 11 Refills Prov:GRACE TERRAZAS MD 01/12/18 Albuterol Sulfate 90 Mcg/Act (PROAIR HFA 90 MCG/ACT) 8.5 Gm Hfa.aer.ad, 2 PUFF IH Q4-6H, #1 INHALER 11 Refills Prov:GRACE TERRAZAS MD 01/05/18 Diet: Regular Activity: As Tolerated, No Exertion Special Instructions: She will be followed by the Hospitalist Service while on [facility]. Copies to: GRACE TERRAZAS MD Venous Thromboembolism Antithrombotics Is Pt On Any Antithrombotics?: Yes Problem Qualifiers (1) Hypertension: Hypertension type: essential hypertension Qualified Codes: I10 - Essential ( primary) hypertension TAM SALAS MD Mar 12, 2018 11:48
[2018-03-13] MEDS ORDERED: TRIA-20 PO (10:34)
--- NOTE | 2018-03-13 14:00 | Medical Nutrition Therapy ---
Nutrition Anthropometrics Height (Inches): 64.00 Height (Calculated Centimeters: 162.837444 Weight (Pounds): 183 Weight (Calculated Kilograms): 83.007 BMI Calculated: 27.63 Bird Nutrition Score: Probably Inadequate Bird Nutrition Risk Score: 16 Dietary Referral Nutrition Risk Factors: Nutrition Risk Comment: Nutritional Diagnosis Nutritional Risk Acuity 3: COPD Unstable Past Medical History: HX of depression, anxiety, HTN, and GI bleed/ulcer, CKD- 3, COPD Nutritional Acuity: 3-Mild Nutrition Diagnosis: Increased Nutrient Needs Nutrition Etiology: Inadeq. Food/Shae Intake Nutrition Problem/Etiology/Sym: increased nutrient needs related to COPD with exacerbation on BiPAP during the day. Energy Requirement: 1860 (kcal/day (23 kcal/kg)- [place] Jeor RMR (1292) AF 1.2, IF 1.2) Protein Requirement: 82 (g protein/day (1.0 g/kg)) Fluid Requirement: 2470 (mL/day (30 mL/kg)) Diet Type: Diet as Tolerated FABIOLA/REG Nutrition Intervention: Cont diet as ordered, Encourage intake Food Likes: if coffee is ordered give decaf for lunch and supper Food Dislikes: Dislikes chocolate ensure Diet Comment To RSA: OFFER VANILLA NUTRITION SUPPLEMENT Nutrition Monitoring & Eval RD Patient Assessment Time: [address] Assessment Type: RD Re-Assessment Patient Nutrition Acuity: 3-Mild Follow Up Date: Mar 17, 2018 Nutritional Comment: Pt admitted for COPD exacerbation. Pt on regualr diet but no intake reported at this time. BNP elevated at 650. BMI is in overwt range. Will cont to monitor and encourage intake. 03/01 Pt transferred to ICU after cardiac arrest episode. BNP 447, Alb 2.9, High AST/ALT. Pt NPO d/t intubation and sedation. Plan to wean today. Follow clinical progress, labs, etc. 03/03 Pt remains admitted in ICU on BiPAP. Pt diet advanced to FABIOLA. Pt currently tolerating clear liquids. BUN elevated at 42. Albumin was low but is increasing. Pt intakes not currently meeting estimated need. Continue to monitor and encourage increased intake. 03/05 Pt diet as tolerated. Recorded intakes report pt continues to only consume liquids at this time. Oim Architect visited pt room. Pt consuming eggs with toast. Oim Architect encouraged pt to consume protein on each meal tray to encourage strength and healing. Pt reports that she has tried chocolate ensure and dislikes the flavor but is willing to try vanilla ensure. Oim Architect will continue to monitor pt intake and progress. 03/09 Pt continues on diet as tolerated consuming 50-100% of all meals. Pt states that she has been trying to increase her intake and consume a protein on each meal tray. Pt states that she does not love the vanilla ensure but has been tolerating drinking some of the ensure. Oim Architect encouraged pt to continue to drink ensure to increase protein intake to accommodate for increased needs for healing. Continue to monitor pt intake and clinical progress. 03/12 Pt reports that her appetite is returning and that she is having an easier time consuming more protein and foods at meal times. Pt states that she has been enjoying the food she has been given but would like more flavor with her food other than salt. Oim Architect offered to provide pt with some Mrs. Whitman packets on her meal tray. Pt ammenable to trying Mrs. Whitman. Pt reported that she was concerned she may need to consume less sodium due to some water retention. Oim Architect explained to pt that she is not on a low sodium diet but gave pt brief diet ed on how to decrease sodium intake. Pt ammenable. Continue to monitor pt intake and progress. PHOENIX KENNEY Mar 12, 2018 13:03
== END 2018-03-12 13:20 | DRG 208 ==
LOC: ER 17:07 → MED 20:19 → ICU 02-28 04:19 → MED 03-06 12:59
PROVIDERS: ADMIT Internal Medicine; ATTEND Internal Medicine
PROC: 5A1945Z Respiratory Ventilation, 24-96 Consecutive Hours (ICD-10-PCS; principal; 2018-02-28)
PROC: 30233K1 Transfusion of Nonautologous Frozen Plasma into Peripheral Vein, Percutaneous Approach (ICD-10-PCS; 2018-02-28)
PROC: 5A12012 Performance of Cardiac Output, Single, Manual (ICD-10-PCS; 2018-02-28)
PROC: 0BH17EZ Insertion of Endotracheal Airway into Trachea, Via Natural or Artificial Opening (ICD-10-PCS; 2018-02-28)
DX: J44.1 Chronic obstructive pulmonary disease with (acute) exacerbation (principal); J18.1 Lobar pneumonia, unspecified organism; I46.2 Cardiac arrest due to underlying cardiac condition; J96.00 Acute respiratory failure, unspecified whether with hypoxia or hypercapnia; I50.21 Acute systolic (congestive) heart failure; I13.0 Hypertensive heart and chronic kidney disease with heart failure and stage 1 through stage 4 chronic kidney disease, or unspecified chronic kidney disease; I47.1 Supraventricular tachycardia; K92.2 Gastrointestinal hemorrhage, unspecified; J44.0 Chronic obstructive pulmonary disease with (acute) lower respiratory infection; I27.20 Pulmonary hypertension, unspecified; N18.3 Chronic kidney disease, stage 3 (moderate); E87.6 Hypokalemia; F41.8 Other specified anxiety disorders; E03.9 Hypothyroidism, unspecified; F17.210 Nicotine dependence, cigarettes, uncomplicated; E78.5 Hyperlipidemia, unspecified; E83.52 Hypercalcemia; Z99.81 Dependence on supplemental oxygen; Z92.21 Personal history of antineoplastic chemotherapy; Z90.710 Acquired absence of both cervix and uterus; Z85.3 Personal history of malignant neoplasm of breast; Z88.8 Allergy status to other drugs, medicaments and biological substances
CPT/HCPCS: 36415; 36600; 71045; 71046; 71275; 82040; 82247; 82310; 82374; 82435; 82565; 82803; 82947; 83735; 83880; 84075; 84132; 84155; 84295; 84443; 84450; 84460; 84484; 84520; 85025; 85379; 86850; 86900; 86901; 86920; 93005; 93306; 94002; 94003; 94640; 94660; 94668; 94770; 97162; 97167; 99285; A9270; C1758; C9113; J0131; J0153; J0330; J0456; J0696; J0743; J1650; J1940; J2060; J2250; J2704; J2930; J3480; J3490; J7030; J7040; J7050; J7512; J7613; J7614; P9017; Q9967

== ENCOUNTER → 2018-02-26 | Outpatient (CLI) | payer MEDICARE, OTHER ==
[2014-10-05 17:07] VITALS: BMI 25.4
[~2018-02-26] MED LIST changes: +IOPAMIDOL 76% 75 ML INFUS BTL 75 ML ONE; +VIT1CAPS34 PO
--- NOTE | 2018-02-26 15:00 | RADIOLOGY IMAGING REPORT ---
[place] [facility] [place] Leigh De La Rosa : 1940 MR: [id number] V: [id number] EXAM DATE: ORDERING PHYSICIAN: GRACE TERRAZAS TECHNOLOGIST: [place] [facility] [place]: Leigh De La Rosa : 1940 Visit/Account:[id number] Date of Sevice: 02/26/2018 EXAMINATION: CTA of the chest with IV contrast HISTORY: Elevated d-dimer. Shortness of breath. TECHNIQUE: Pulmonary embolus protocol - Thin axial CT images of the chest were obtained with IV con trast during maximal pulmonary arterial opacification. Reconstruction of the source data includes mul tiplanar 2D coronal and sagittal reconstructed images, and 3D coronal and sagittal MIP images. Repres entative images have been stored on PACS. One of the following dose optimization techniques was utilized in the performance of this exam: Autom ated exposure control; adjustment of the mA and/or kV according to the patient's size; or use of an i terative reconstruction technique. Specific details can be referenced in the facility's radiology C T exam operational policy. Contrast: 75 mL of IV Isovue-370. COMPARISON: None. FINDINGS: Pulmonary arteries: The pulmonary arteries are well opacified, without suspicious filling defect. Heart, aorta, and great vessels: Normal caliber thoracic aorta. Vascular calcifications, including c oronary artery calcifications. Normal heart size. No pericardial effusion. Lungs and pleura: Slight scarring or linear atelectasis in the right middle lobe and lingula. Calcif ied granuloma in the right upper lobe posteriorly. The lungs are otherwise clear. No abnormal pulmona ry nodule, mass, or consolidation. The central airways are patent. No pleural effusion or pneumothora x. Mediastinum and robles: Negative. Visualized upper abdomen: Unremarkable. Chest wall: Bilateral breast implants with capsular calcification. There is lobulation along the med ial medial margin of both implants which may represent chronic extracapsular rupture. Bones: Negative. IMPRESSION: 1. No evidence of pulmonary embolism. 2. No other acute findings in the chest. 3. Slight scarring or linear atelectasis in the right middle lobe and lingula. The lungs are otherwis e clear. Report Dictated By: Jacobo Collier MD at 02/26/2018 2:45 PM Report E-Signed By: Jacobo Collier MD at 02/26/2018 2:55 PM WSN:[id number]
== END ==
LOC: CT 13:43
PROVIDERS: ATTEND Emergency Medicine
DX: I25.10 Atherosclerotic heart disease of native coronary artery without angina pectoris (principal); R91.8 Other nonspecific abnormal finding of lung field; Z98.82 Breast implant status
CPT/HCPCS: 36415; 71275; 84484; Q9967

== ENCOUNTER → 2018-02-26 | Outpatient (CLI) | payer MEDICARE, OTHER ==
[2014-10-05 17:07] VITALS: BMI 25.4
[~2018-02-26] MED LIST changes: -IOPAMIDOL 76% 75 ML INFUS BTL 75 ML ONE
[2018-02-26 11:15] LABS: PLATELET COUNT, AUTOMATED 227 K/uL (150-450)
--- NOTE | 2018-02-26 11:51 | EKG ---
FACILITY: [facility] PATIENT NAME: LIEN FRANKLIN : [id number] MR: [id number] V: [id number] EXAM DATE: ORDERING PHYSICIAN: GRCAE TERRAZAS TECHNOLOGIST: ARGELIA Test Reason : DYSPNEA Blood Pressure : / mmHG Vent. Rate : 079 BPM Atrial Rate : 079 BPM P-R Int : 128 ms QRS Dur : 092 ms QT Int : 400 ms P-R-T Axes : 070 -84 076 degrees QTc Int : 458 ms Sinus rhythm with premature supraventricular complexes Left axis deviation Inferior infarct , age undetermined Abnormal ECG No previous ECGs available Referred By: MK Confirmed By:
--- NOTE | 2018-02-26 11:56 | RADIOLOGY IMAGING REPORT ---
FACILITY: [facility] PATIENT NAME: Leigh De La Rosa : 1940 MR: [id number] V: [id number] EXAM DATE: ORDERING PHYSICIAN: GRACE TERRAZAS TECHNOLOGIST: [place] [facility] [place] Leigh De La Rosa : 1940 Visit/Account:[id number] Date of Sevice: 02/26/2018 Exam type: CHEST PA AND LAT History: Dyspnea Comparison: October 27, 2017. Findings: Cardiac silhouette is borderline enlarged but unchanged. There is no evidence of acute appearing inf iltrates, pleural effusions or overt pulmonary edema. No evidence of a pneumothorax or pneumomediast inum. There is S-shaped scoliosis of the thoracolumbar spine. IMPRESSION: 1. No acute cardiopulmonary process is seen Report Dictated By: Sharri Phillips MD at 02/26/2018 11:50 AM Report E-Signed By: Sharri Phillips MD at 02/26/2018 11:51 AM WSN:[email or web address]
== END ==
LOC: LAB 10:45
PROVIDERS: ATTEND Emergency Medicine
DX: I51.7 Cardiomegaly (principal); M41.84 Other forms of scoliosis, thoracic region; R94.31 Abnormal electrocardiogram [ECG] [EKG]
CPT/HCPCS: 36415; 71046; 82040; 82247; 82310; 82374; 82435; 82565; 82947; 84075; 84132; 84155; 84295; 84443; 84450; 84460; 84484; 84520; 85025; 85379

== ENCOUNTER 2018-03-12 13:20 | Inpatient (IN) | payer MEDICARE, OTHER ==
[2018-03-01 12:20] VITALS: Ht 162.6 cm; Wt 71.3 kg
[~2018-03-12] VITALS: Ht 162.6 cm; Wt 71.3 kg
[~2018-03-12 13:20] MED LIST changes: +ACET-2007 PO; +ALPR-448 PO; +CEF300 PO; +DILT120C18 PO; +FURO-45 PO; +PANT40TA65 PO; +POTA-23 PO; +SPIR25TA78 PO; +VIT1CAPS34 PO
[2018-03-12 13:37] VITALS: BP 154/54
[2018-03-12] MEDS ORDERED: LEVALBUTEROL 0.63 MG/3 ML NEB NEB PRN (13:57)
--- NOTE | 2018-03-12 14:00 | ECF H&P BLANK ---
[facility] H&P UPDATE History of Present Illness Chief Complaint The patient is a 77 year old female with PMH significant for COPD with severe obstructive defect by PFTs in 2016 who presents with increased shortness of breath for the past 24-48hours. History of Present Illness The patient is a current smoker. She is on multiple medications for her COPD. She did participate in pulmonary rehabilitation in 2016. Pre rehab PFTs showed an FEV1 of .66. She had been on oxygen 2L at only but about 4 months ago had to increase it to 24 hours daily. Her shortness of breath has worsened over the past 24-48 hours. The patient denies fever, chills or cough. She had a URI at the end of 2016 and was treated with Levaquin and steroids. Those symptoms resolved but she remained on oxygen 16/06. She notes that with the shortness of breath her chest has felt tight and she has had difficulty getting air in and out. She has been wheezing more. She does have risk factors for CAD including +FH, smoking, HTN and hyperlipidemia. She did have some LE edema but this resolved when she recently stopped taking amlodipine. Her BP has been high off of amlodipine and diuretics. Diuretics were stopped due to hypercalcemia. She has a history of hyperparathyroidism and is s/p parathyroidectomy. Her PCP is monitoring her calcium level which has improved off of calcium supplements and diuretics. The patient states she has not smoked for 2 days due to shortness of breath. She would like to quit smoking. She denies orthopnea or PND. She has not had palpitations, diaphoresis or nausea. History Problems: (1) Breast cancer Status: Resolved (2) Hyperlipidemia Status: Chronic (3) CKD (chronic kidney disease), stage III Status: Chronic (4) COPD (chronic obstructive pulmonary disease) Status: Chronic (5) H/O hyperparathyroidism Status: Chronic (6) Hypothyroidism Status: Chronic (7) Depression Status: Chronic (8) Anxiety Status: Chronic (9) Upper GI bleed Status: Chronic (10) Ulcer Status: Resolved (11) Hypertension Status: Chronic Home Meds Active Scripts Benazepril Hcl (BENAZEPRIL HCL) 40 Mg Tablet, 40 MG PO QDAY, #5 TAB 0 Refills Prov:GRACE SOLANO MD 02/25/18 Fluoxetine Hcl (PROZAC) 20 Mg Capsule, 20 MG PO QDAY, #90 CAPSULE 1 Refill Prov:GRACE SOLANO MD 02/03/18 Alprazolam (ALPRAZOLAM) 0.5 Mg Tab.rapdis, 0.5 MG PO QAM for Anxiety MDD .5 mg for 60 Days, #60 TAB Prov:GRACE SOLANO MD 01/20/18 Umeclidinium [place] (Incruse Ellipta) 62.5 Mcg Blst.w.dev, 1 INH INH DAILY, #1 INH 11 Refills Prov:GRACE SOLANO MD 01/12/18 Albuterol Sulfate 90 Mcg/Act (PROAIR HFA 90 MCG/ACT) 8.5 Gm Hfa.aer.ad, 2 PUFF IH Q4-6H, #1 INHALER 11 Refills Prov:GRACE SOLANO MD 01/05/18 Fluticasone/Salmeterol (ADVAIR 250-50 DISKUS) 1 Each Disk.w.dev, 1 PUFF IH BID, #3 INH 3 Refills Prov:GRACE SOLANO MD 01/05/18 Reported Medications Vit A/Vit C/Vit E/Zinc/Copper (PRESERVISION AREDS SOFTGEL) 1 Each Capsule, 1 EACH PO DAILY, CAPSULE 02/26/18 Oxygen (OXYGEN) Inha, 2 L INH, L 11/21/17 Levothyroxine Sodium (LEVOTHYROXINE SODIUM) 100 Mcg Tablet, 100 MCG PO QDAY, TAB 06/04/17 Discontinued Reported Medications [areds] No Conflict Check 11/21/17 Multivitamin (DAILY MULTIPLE VITAMIN) 1 Each Tablet, 1 TAB PO DAILY 06/04/17 Allergies: Coded Allergies: NSAIDS (Non-Steroidal Anti-Inflamma (Verified Adverse Reaction, Unknown, Pt does not take NSAIDS, 02/26/18) PT HAS HISTORY OF GASTRIC ULCERS. Patient History: FH: arthritis MOTHER, , Age:89 BROTHER OR SISTER BROTHER OR SISTER FH: breast cancer BROTHER OR SISTER FH: cancer FH: heart attack FATHER, , Age:73 MOTHER, , Age:89 FH: heart disease BROTHER OR SISTER Other Social/Family Hx The patient is and lives with her in [place]. She is a retired nurse. She has children but none of them live in [place]. Her has dementia and she cares for him. Hx Smoking: Yes Smoking Status: Current: Every Day Smoker, Current: Some Days Smoker Exposure to Second Hand Smoke?: No Caffeine Intake: Coffee Caffeine/Cups Per Day: 2-3 Hx Alcohol Use: Yes Hx Substance Use Disorder: No Social Drug Use: Never History of IV Drug Use: No Review of Systems All Systems Reviewed/Normal: Yes, Except as Noted Constitutional: No Fever Cardiovascular: No Chest Pain, No Palpitations Respiratory: Shortness of Breath, Wheezing, Other (Feels tight in chest with difficulty getting air in and out.), No Cough Gastrointestinal: No Nausea Psychiatric: Depression, Anxiety Exam Vital Signs Vital Signs Date Time Temp Pulse Resp B/P (MAP) Pulse Ox O2 Delivery O2 Flow Rate FiO2 02/26/18 21:11 81 194/92 (126) 91 Nasal Cannula 2.0 02/26/18 20:45 98.5 24 General Appearance: Alert, Awake, No Acute Distress, Afebrile Neuro: No Gross deficits Eyes: PERRLA Cardiovascular: Regular Rate and Rhythm Respiratory: Other (Markedly decreased BS in lower lung murillo with expiratory wheezes noted. ) GI: Abd Soft and Non-Tender (BS+) Lymph: Cervical Nodes Benign Extremities: Warm, Perfused, Other (No significant edema.) Psych: Alert & Oriented X3, Appropriate Mood & Affect Medical Decision Making Data Points Item Value Date Time D-Dimer Quantitative (PE/DVT) 1.05 ug/ml H 02/26/18 1100 Sodium Level 140 mmol/L 02/26/18 1100 Potassium Level 3.6 mmol/L 02/26/18 1100 Chloride Level 99 mmol/L 02/26/18 1100 Carbon Dioxide Level 31 mmol/L 02/26/18 1100 Blood Urea Nitrogen 21 mg/dl H 02/26/18 1100 Creatinine 1.10 mg/dl H 02/26/18 1100 Glomerular Filtration Rate Calc 48.2 02/26/18 1100 Random Glucose 96 mg/dl 02/26/18 1100 Calcium Level 10.3 mg/dl H 02/26/18 1100 Total Bilirubin 0.3 mg/dl 02/26/18 1100 Aspartate Amino Transf (AST/SGOT) 24 U/L 02/26/18 1100 Alanine Aminotransferase (ALT/SGPT) 23 U/L 02/26/18 1100 Alkaline Phosphatase 81 U/L 02/26/18 1100 Total Protein 6.4 gm/dl 02/26/18 1100 Albumin 3.7 g/dl 02/26/18 1100 Thyroid Stimulating Hormone (TSH) 0.55 uIU/ml 02/26/18 1100 Troponin I 0.044 ng/ml 02/26/18 1100 Troponin I 0.046 ng/ml 02/26/18 1512 Troponin I 0.048 ng/ml 02/26/18 1714 B-Type Natriuretic Peptide 650 pg/ml H 02/26/18 1714 White Blood Count 6.9 k/uL 02/26/18 1100 Red Blood Count 4.19 M/uL 02/26/18 1100 Hemoglobin 13.1 g/dL 02/26/18 1100 Hematocrit 38.7 % 02/26/18 1100 Mean Corpuscular Volume 92.2 fL 02/26/18 1100 Mean Corpuscular Hemoglobin 31.3 pg 02/26/18 1100 Mean Corpuscular Hemoglobin Concent 34.0 g/dL 02/26/18 1100 Red Cell Distribution Width 14.0 % 02/26/18 1100 Platelet Count 227 K/uL 02/26/18 1100 Mean Platelet Volume 9.5 fL 02/26/18 1100 Neutrophils (%) (Auto) 72.6 % H 02/26/18 1100 Lymphocytes (%) (Auto) 14.0 % L 02/26/18 1100 Monocytes (%) (Auto) 11.1 % 02/26/18 1100 Eosinophils (%) (Auto) 0.9 % 02/26/18 1100 Basophils (%) (Auto) 1.4 % 02/26/18 1100 Nucleated RBC Relative Count (auto) 0.0 /100WBC 02/26/18 1100 Neutrophils # (Auto) 5.0 K/uL 02/26/18 1100 Lymphocytes # (Auto) 1.0 K/uL L 02/26/18 1100 Monocytes # (Auto) 0.8 K/uL 02/26/18 1100 Eosinophils # (Auto) 0.1 K/uL 02/26/18 1100 Basophils # (Auto) 0.1 K/uL 02/26/18 1100 Nucleated RBC Absolute Count (auto) 0.00 K/uL 02/26/18 1100 EKG / Imaging EKG Interpretation [place] [facility] [place] NAME: LIEN DE LA ROSA : [id number] MR: [id number] V: [id number] EXAM DATE: ORDERING PHYSICIAN: ROB RIVERO TECHNOLOGIST: MARIETTA Test Reason : SOB Blood Pressure : / mmHG Vent. Rate : 083 BPM Atrial Rate : 083 BPM P-R Int : 144 ms QRS Dur : 090 ms QT Int : 388 ms P-R-T Axes : 059 -72 068 degrees QTc Int : 455 ms Normal sinus rhythm Possible Left atrial enlargement Left axis deviation Septal infarct , age undetermined Abnormal ECG When compared with ECG of 26-FEB-2018 10:01, premature supraventricular complexes are no longer present Referred By: MAT Confirmed By: [id number] T: / Imaging [place] [facility] [place]IENT NAME: Lien De La Rosa : 1940 MR: [id number] V: [id number] EXAM DATE: ORDERING PHYSICIAN: GRACE SOLANO TECHNOLOGIST: [place] [facility] [place]: Lien De La Rosa : 1940 Visit/Account:[id number] Date of Sevice: 02/26/2018 Exam type: CHEST PA AND LAT History: Dyspnea Comparison: October 27, 2017. Findings: Cardiac silhouette is borderline enlarged but unchanged. There is no evidence of acute appearing infiltrates, pleural effusions or overt pulmonary edema. No evidence of a pneumothorax or pneumomediastinum. There is S-shaped scoliosis of the thoracolumbar spine. IMPRESSION: 1. No acute cardiopulmonary process is seen Report Dictated By: Sharri Phillips MD at 02/26/2018 11:50 AM Report E-Signed By: Sharri Phillips MD at 02/26/2018 11:51 AM WSN:[id number] [place] [facility] [place]IENT NAME: Lien De La Rosa : 1940 MR: [id number] V: [id number] EXAM DATE: [id number] ORDERING PHYSICIAN: GRACE SOLANO TECHNOLOGIST: [place] [facility] [place] Patient: Lien De La Rosa : 1940 Visit/Account:[id number] Date of Sevice: 02/26/2018 EXAMINATION: CTA of the chest with IV contrast HISTORY: Elevated d-dimer. Shortness of breath. TECHNIQUE: Pulmonary embolus protocol - Thin axial CT images of the chest were obtained with IV contrast during maximal pulmonary arterial opacification. Reconstruction of the source data includes multiplanar 2D coronal and sagittal reconstructed images, and 3D coronal and sagittal MIP images. Dental Assistant images have been stored on PACS. One of the following dose optimization techniques was utilized in the performance of this exam: Automated exposure control; adjustment of the mA and/ or kV according to the patient's size; or use of an iterative reconstruction technique. Specific details can be referenced in the facility's radiology CT exam operational policy. Contrast: 75 mL of IV Isovue-370. COMPARISON: None. FINDINGS: Pulmonary arteries: The pulmonary arteries are well opacified, without suspicious filling defect. Heart, aorta, and great vessels: Normal caliber thoracic aorta. Vascular calcifications, including coronary artery calcifications. Normal heart size. No pericardial effusion. Lungs and pleura: Slight scarring or linear atelectasis in the right middle lobe and lingula. Calcified granuloma in the right upper lobe posteriorly. The lungs are otherwise clear. No abnormal pulmonary nodule, mass, or consolidation. The central airways are patent. No pleural effusion or pneumothorax. Mediastinum and robles: Negative. Visualized upper abdomen: Unremarkable. Chest wall: Bilateral breast implants with capsular calcification. There is lobulation along the medial medial margin of both implants which may represent chronic extracapsular rupture. Bones: Negative. IMPRESSION: 1. No evidence of pulmonary embolism. 2. No other acute findings in the chest. 3. Slight scarring or linear atelectasis in the right middle lobe and lingula. The lungs are otherwise clear. Report Dictated By: Jacobo Collier MD at 02/26/2018 2:45 PM Report E-Signed By: Jacobo Collier MD at 02/26/2018 2:55 PM WSN:[id number] Pre-Admit Course Medical Record Review: Yes Assessment and Plan Problems: (1) COPD with exacerbation Status: Acute Assessment & Plan: The patient was audibly wheezing during my interview. Will place on IV steroids. Will order Duonebs tid and albuterol nebs prn. Will continue Advair. She will have someone bring her Incruse Ellipta tomorrow. (2) Elevated brain natriuretic peptide (BNP) level Status: Acute Assessment & Plan: I suspect she has some pulmonary HTN and right heart failure with her severe COPD. Will order an echo for am. (3) Hypertension Status: Chronic Assessment & Plan: She had been on diuretics, amlodipine and benazepril. Her diuretics were stopped due to hypercalcemia. Her amlodipine was stopped due to LE edema. Her BP is quite high here. Will start Cardizem. (4) Anxiety Status: Chronic Assessment & Plan: Continue fluoxetine and prn alprazolam. (5) Depression Status: Chronic Assessment & Plan: Continue fluoxetine. (6) Hypothyroidism Status: Chronic Assessment & Plan: TSH is 0.55. Continue levothyroxine 100mcg daily. (7) CKD (chronic kidney disease), stage III Status: Chronic Assessment & Plan: Creatinine is elevated at 1.1. Monitor. (8) Hyperlipidemia Status: Chronic Assessment & Plan: She is not currently on treatment. Dr. Solano is following. Time Spent on Plan of Care: < 30 min Copies to: GRACE SOLANO MD Venous Thromboembolism VTE Risk Physician Assess for VTE Risk: Yes Patient's VTE Risk: Low VTE Diagnostic Test 2 Days Prior to Admit: Yes Antithrombotics Is Pt On Any Antithrombotics?: Yes Exam Sepsis Risk: No Definite Risk JAVIER SALAS MD Feb 26, 2018 22:09 <Electronically signed by JAVIER SALAS MD> D/ 08 08 08 LUBNA/KATHLEEN CC: GRACE SOLANO MD Patient will be admitted to [facility] for ongoing rehabilitative therapy. TAM SALAS MD Mar 12, 2018 14:00
[2018-03-12] MEDS: LEVALBUTEROL 1.25 MG/3 ML NEB NEB SCH ×2 (14:32→17:14)
--- NOTE | 2018-03-12 14:34 | Consultant Pharmacy Review ---
Adolescent Psychiatrist Review Medication Review Do All Mecications have a Diag: No (XANAX IS ORDERED QHS - NO DIAGNOSIS FOR INSOMNIA/ANXIETY) Beers Criteria Medication 2014 Benzodiazapines (short/interm): Alprazolam Proton Pump Inhibitors: Pantoprazole (HISTORY OF GI ISSUES) Other General Cautions PATIENT IS ADMITTED FOR WEAKNESS AND HAS XANAX ORDERED FOR BEDTIME. CAUTION FOR FALL RISK WITH THIS MEDICATION AND WEAKNESS ADVAIR, FLUOXETINE, ALBUTEROL CAN INCREASE RISK FOR QT PROLONGATION. MONITOR FOR SIGNS OF ARRHYTHMIA. MONITOR POTASSIUM LEVELS WITH SPIRONOLACTONE AND POTASSIUM SUPPLEMENTS. (ALSO ON LASIX - POTASSIUM WASTING MED) Pneumococcal Vaccine HX Pneumo Vac ([id number]): Yes (70) MD Notified? Notified?: No SEVEN ROBISON Mar 12, 2018 14:34
--- NOTE | 2018-03-12 15:36 | OT ECF NOTE ---
Type of Note: Initial Note Primary Medical Diagnosis: Generalized weakness s/p extensive hospital admission for COPD exacerbation, Pneumonia, Acute resp. failure Occupational Therapy Evaluation Date: 03/12/18 SUBJECTIVE: Prior Hospitalization: [facility] 02/26/18 thru 03/12 Prior Level of Function: Independent with all ADLs/IADLs. Pt is the primary caregiver for her spouse (Jacobo) who was dementia. Prior Living Status: Single level house, Living with family Community Services: Support adequate, No known needs Home Accessibility: All needs on one level Walk-in shower Tub/shower combination Equipment Owned: None Medical Complications/Past Medical History: COPD, CKD, Hyperlipidemia, Depression, Anxiety, HT, Hx breast cancer. Please refer to EMR for extensive details Psychosocial Support: Supportive spouse and supportive sons who do not live in [place] Pain Scale (0-10): None reported at time of evaluation OBJECTIVE: Strength: MMT: Right Left Shoulder Flexion WFL WFL Elbow Flexion WFL WFL Wrist Extension WFL WFL Dental Coordinator WFL WFL (5= normal, 4= good, 3= fair, 2= poor, 1= trace) ROM: Both upper extremities, WFL Sensation: Intact, No concerns Functional Transfer: Assistive Device: Transfer Ability: Pt declining to get OOB at time of evaluation. Fatigued from transfer to [facility]. ADL: Upper body dressing: Assistive device: Upper body dressing ability: Lower body dressing: Assistive device: Lower body dressing ability: Toileting: Assistive device: Toileting ability: Grooming/hygiene: Assistive device: Grooming ability: Bathing: Assistive device: Bathing ability: Standardized Assessment: Esme Index of Activities of Daily Livin/20 upon initial evaluation (). ASSESSMENT: "Nupur" presents to [facility] with decreased activity tolerance for engagement in ADLs/IADLs. She requires 1-2 person assist for ADLs and functional mobility. At [facility], she was (I) with all ADLs/IADLs. She will benefit from skilled OT services to improve activity tolerance for engagement in ADLs and receive appropriate AE education prior to discharge home. Problem List/Current Limitations: Decreased activity tolerance Decreased strength Decreased ROM Generalized weakness Shortness of breath Short Term Goals: 1) Pt will be SBA grooming/hygiene. 2) Pt will be SBA toilet task. 3) Pt will be SBA UB/LB dressing. 4) Pt will be SBA shower task. 5) Pt Esme Index of ADLs score will increase by 2 points. 6) Pt will be educated on energy conservation and appropriate AE needs. Intermediate Goals: Return home with services Patient Goals: Return home Rehabilitation Prognosis: Good Barriers to Discharge: Medical history, current everyday smoker PLAN: The patient will benefit from skilled occupational therapy services 5 times per week for 2 weeks including: Ther ex ADL training Safety training Ther act IADL training Transfer training Adaptive equip training Bed mobility Energy conservation Thank you for this referral. If you have any questions, concerns, or comments about this report or plan, please contact me at . Tatiana Loera MS, OTR/L Occupational Therapist NELLIE
[2018-03-12] MEDS: POTASSIUM CHL 10 MEQ TABCR PO SCH (17:05)
[2018-03-12] MEDS: SALMETEROL/FLUTIC 250/50 1 INH INH SCH (17:24)
[2018-03-12 17:35] VITALS: BP 154/73
[2018-03-12] MEDS: ALPRAZolam 0.5 MG TAB PO SCH (20:39)
[2018-03-12] MEDS: DILTIAZEM CD 120 MG CAPCR PO SCH (20:39)
[2018-03-12] MEDS: CEFDINIR 300 MG CAP PO SCH (20:39)
[2018-03-12] MEDS: ACETAMINOPHEN 325 MG TAB PO PRN (20:40)
[2018-03-13] MEDS: LEVALBUTEROL 1.25 MG/3 ML NEB NEB SCH ×4 (05:53→17:04)
[2018-03-13] MEDS: SALMETEROL/FLUTIC 250/50 1 INH INH SCH ×2 (05:53→17:04)
[2018-03-13] MEDS: LEVOTHYROXINE SOD 0.1 MG TAB PO SCH (06:11)
--- NOTE | 2018-03-13 08:24 | PT ECF NOTE ---
Type of Note: Initial Note Primary Medical Diagnosis: COPD exacerbation, cardiorespiratory arrest, acute respiratory failure Physical Therapy Evaluation Date: 03/13/18 SUBJECTIVE: Prior Hospitalization: [facility] 02/26/18-03/12/18 Prior Level of Function: Independent with no AD, pt was primary caregiver of her spouse Prior Living Status: Single level house, Spouse Community Services: Independent Home Accessibility: All needs on one level Equipment Owned: None at this time Medical Complications/Past Medical History: Extensive, see EMR Psychosocial Support: Supportive sons (none of whom live in [place]), (pt reports that he has dementia) Pain Scale (0-10): Pt reports generalized "soreness" OBJECTIVE: Strength: Right Lower Extremity: DF: 4/5 Knee flexion: 3+/5 Knee extension: 3+/5 Hip flexion: <3/5 Left Lower Extremity: DF: 4/5 Knee flexion: 3+/5 Knee extension: 3+/5 Hip flexion: <3/5 ROM: WFL Sensation: WNL Other Neuro findings: None noted Bed Mobility: Not assessed at time of evaluation Transfers: modAx1 with RW Gait: CGA x10' with RW Stairs: NT Timed Up and Go (>12 seconds indicated increased risk for falls): Pt unable at time of eval Other Objective Measures: Functional Reach Test: 5 inches (indicating high fall risk) ASSESSMENT: PT ECF eval complete. Pt unable to rise to stand initially from elevated toilet with maxA provided. PT instructed patient in step by step cues for sequencing and pt was able to rise to stand with modA x1. Pt ambulated from bathroom to gerichair with CGA and use of RW. SpO2 dropped to 84% on 2L with mobility, this returned to WNL with cues for deep breathing. The patient is the primary caregiver of her , and verbalizes importance of considering various LT discharge plans. The pt requires increased assistance for all functional mobility and will benefit from skilled PT in order to increase independence and tolerance to functional mobility prior to d/c. Problem List/Current Limitations: Decreased activity irving Decreased strength Decreased balance Shortness of breath Short Term Goals: 1: Pt to complete bed mobility with HOB flat and Nora 2: Pt to complete transfers with Nora and least restrictive AD 3: Pt to ambulate 150' with Nora and least restrictive AD 4: Pt to asc/desc 1 [address] stair with SBA to simulate curb negotiation 5: Pt to improve functional reach distance to >10 inches to indicate a decreased risk of falls. Detention Goals: Pt to d/c to appropriate d/c location with appropriate level of care Patient Goals: To get stronger Rehabilitation Prognosis: Good Barriers for Discharge: High level of independence required to d/c to previous living situation PLAN: The patient will benefit from skilled physical therapy services 5 times per week for 2 weeks including: Therapeutic Exercise Therapeutic Activities Transfer Training Gait Training Stair Training Manual Therapy Safety Training Neuromuscular Re-educ. Pt/Caregiver Training Bed Mobility Thank you for this referral. If you have any questions, concerns, or comments about this report or plan, please contact me at . Catherine Anna, PT, DPT BENITOD
[2018-03-13 08:29] VITALS: BP 147/64
[2018-03-13] MEDS: CEFDINIR 300 MG CAP PO SCH ×2 (08:42→21:03)
[2018-03-13] MEDS: MULTIVITAMINS TAB PO SCH (08:42)
[2018-03-13] MEDS: predniSONE 20 MG TAB PO SCH (08:42)
[2018-03-13] MEDS: DILTIAZEM CD 120 MG CAPCR PO SCH ×2 (08:42→21:03)
[2018-03-13] MEDS: SPIRONOLACTONE 25 MG TAB PO SCH (08:42)
[2018-03-13] MEDS: FLUoxetine HCL 20 MG CAP PO SCH (08:42)
[2018-03-13] MEDS: FUROSEMIDE 20 MG TAB PO SCH (08:42)
[2018-03-13] MEDS: POTASSIUM CHL 10 MEQ TABCR PO SCH ×2 (08:43→17:16)
[2018-03-13] MEDS: PANTOPRAZOLE SOD 40 MG TABEC PO SCH (08:43)
[2018-03-13] MEDS ORDERED: TRIA-20 PO (10:34)
--- NOTE | 2018-03-13 14:00 | Medical Nutrition Therapy ---
Nutrition Anthropometrics Weight (Pounds): 183 Weight (Calculated Kilograms): 83.007 BMI Calculated: 27.63 Bird Nutrition Score: Adequate Bird Nutrition Risk Score: 18 Dietary Referral Nutrition Risk Factors: Nutrition Risk Comment: Nutritional Diagnosis Nutritional Risk Acuity 3: COPD Unstable Past Medical History: HX of depression, anxiety, HTN, and GI bleed/ulcer, CKD- 3, COPD Nutritional Acuity: 3-Mild Nutrition Diagnosis: Increased Nutrient Needs Nutrition Etiology: Inadeq. Food/Shae Intake Nutrition Problem/Etiology/Sym: increased nutrient needs related to COPD with exacerbation on BiPAP during the day. Energy Requirement: 1860 (kcal/day (23 kcal/kg)- [place] St Jeor RMR (1292) AF 1.2, IF 1.2) Protein Requirement: 82 (g protein/day (1.0 g/kg))) Fluid Requirement: 2470 (mL/day (30 mL/kg)) Diet Type: Diet as Tolerated FABIOLA/REG Nutrition Intervention: Cont diet as ordered, Encourage intake Optional Order Time?: No Diet Comment To RSA: OFFER VANILLA NUTRITION SUPPLEMENT. Nutrition Monitoring & Eval Nutrition Goals: Eat 75-100% Meal Nutrition Follow-Up: Good Intake RD Patient Assessment Time: [address] Assessment Type: RD Assessment Patient Nutrition Acuity: 3-Mild Follow Up Date: Mar 17, 2018 Nutritional Comment: 03/13 Pt continues on diet as tolerated consuming 50-100% of all meals. Pt reports an increased appetite and that she has been increasing her intake and tyring to consume more protein with meals. Pt states that she has come to enjoy the vanilla ensure that she has been recieving. Pt reported questions about decreasing her sodium intake. Financial Dealers explained to pt ways to decrease sodium intake. Continue to monitor pt progress and intake. Pt states that she has been trying to increase her intake and consume a protein on each meal tray. Pt states that she does not love the vanilla ensure but has been tolerating drinking some of the ensure. Financial Dealers encouraged pt to continue to drink ensure to increase protein intake to accommodate for increased needs for healing. Continue to monitor pt intake and clinical progress. PHOENIX KENNEY Mar 13, 2018 11:01
[2018-03-13 16:01] VITALS: BP 134/62
[2018-03-13] MEDS: ACETAMINOPHEN 325 MG TAB PO PRN (19:24)
[2018-03-13] MEDS: ALPRAZolam 0.5 MG TAB PO SCH (21:03)
[2018-03-14] MEDS: ACETAMINOPHEN 325 MG TAB PO PRN ×2 (03:33→20:59)
[2018-03-14] MEDS: LEVOTHYROXINE SOD 0.1 MG TAB PO SCH (05:30)
[2018-03-14] MEDS: SALMETEROL/FLUTIC 250/50 1 INH INH SCH ×2 (05:52→17:08)
[2018-03-14] MEDS: LEVALBUTEROL 1.25 MG/3 ML NEB NEB SCH ×4 (05:52→17:08)
[2018-03-14] MEDS: PANTOPRAZOLE SOD 40 MG TABEC PO SCH (08:42)
[2018-03-14] MEDS: MULTIVITAMINS TAB PO SCH (08:42)
[2018-03-14] MEDS: DILTIAZEM CD 120 MG CAPCR PO SCH ×2 (08:42→20:59)
[2018-03-14] MEDS: POTASSIUM CHL 10 MEQ TABCR PO SCH ×2 (08:42→16:24)
[2018-03-14] MEDS: FLUoxetine HCL 20 MG CAP PO SCH (08:42)
[2018-03-14] MEDS: FUROSEMIDE 20 MG TAB PO SCH (08:43)
[2018-03-14] MEDS: SPIRONOLACTONE 25 MG TAB PO SCH (08:43)
[2018-03-14] MEDS: predniSONE 20 MG TAB PO SCH (08:43)
[2018-03-14 09:09] VITALS: BP 137/70
[2018-03-14 15:30] VITALS: BP 145/69
[2018-03-14] MEDS: ALPRAZolam 0.5 MG TAB PO SCH (20:59)
[2018-03-15] MEDS: LEVALBUTEROL 1.25 MG/3 ML NEB NEB SCH ×4 (05:47→17:17)
[2018-03-15] MEDS: SALMETEROL/FLUTIC 250/50 1 INH INH SCH ×2 (05:47→17:17)
[2018-03-15] MEDS: LEVOTHYROXINE SOD 0.1 MG TAB PO SCH (06:44)
[2018-03-15 08:00] VITALS: BP 137/69
[2018-03-15] MEDS: predniSONE 20 MG TAB PO SCH (08:57)
[2018-03-15] MEDS: FUROSEMIDE 20 MG TAB PO SCH (08:57)
[2018-03-15] MEDS: FLUoxetine HCL 20 MG CAP PO SCH (08:57)
[2018-03-15] MEDS: PANTOPRAZOLE SOD 40 MG TABEC PO SCH (08:58)
[2018-03-15] MEDS: POTASSIUM CHL 10 MEQ TABCR PO SCH ×2 (08:58→17:38)
[2018-03-15] MEDS: DILTIAZEM CD 120 MG CAPCR PO SCH ×2 (08:58→21:23)
[2018-03-15] MEDS: MULTIVITAMINS TAB PO SCH (08:58)
[2018-03-15] MEDS: SPIRONOLACTONE 25 MG TAB PO SCH (08:58)
[2018-03-15 16:20] VITALS: BP 143/67
[2018-03-15] MEDS ORDERED: LOPERAMIDE HCL 2 MG CAP PO PRN (18:05)
[2018-03-15] MEDS: ALPRAZolam 0.5 MG TAB PO SCH (21:23)
[2018-03-15] MEDS: ACETAMINOPHEN 325 MG TAB PO PRN (21:23)
[2018-03-16] MEDS: LEVALBUTEROL 1.25 MG/3 ML NEB NEB SCH ×4 (05:45→17:09)
[2018-03-16] MEDS: SALMETEROL/FLUTIC 250/50 1 INH INH SCH ×2 (05:46→17:10)
[2018-03-16 05:48] LABS: PLATELET COUNT, AUTOMATED 130 K/uL (150-450)
[2018-03-16] MEDS: LEVOTHYROXINE SOD 0.1 MG TAB PO SCH (05:53)
[2018-03-16 07:35] VITALS: BP 145/73
[2018-03-16] MEDS: DILTIAZEM CD 120 MG CAPCR PO SCH ×2 (08:34→20:52)
[2018-03-16] MEDS: FUROSEMIDE 20 MG TAB PO SCH (08:34)
[2018-03-16] MEDS: FLUoxetine HCL 20 MG CAP PO SCH (08:34)
[2018-03-16] MEDS: POTASSIUM CHL 10 MEQ TABCR PO SCH ×2 (08:35→17:37)
[2018-03-16] MEDS: SPIRONOLACTONE 25 MG TAB PO SCH (08:35)
[2018-03-16] MEDS: predniSONE 20 MG TAB PO SCH (08:36)
[2018-03-16] MEDS: PANTOPRAZOLE SOD 40 MG TABEC PO SCH (08:36)
[2018-03-16] MEDS: MULTIVITAMINS TAB PO SCH (08:36)
--- NOTE | 2018-03-16 15:15 | Medical Nutrition Therapy ---
Nutrition Anthropometrics Weight (Pounds): 183 Weight (Calculated Kilograms): 83.007 BMI Calculated: 27.63 Bird Nutrition Score: Adequate Bird Nutrition Risk Score: 17 Dietary Referral Nutrition Risk Factors: Nutrition Risk Comment: Nutritional Diagnosis Nutritional Risk Acuity 3: COPD Unstable Past Medical History: HX of depression, anxiety, HTN, and GI bleed/ulcer, CKD- 3, COPD Nutritional Acuity: 3-Mild Nutrition Diagnosis: Increased Nutrient Needs Nutrition Etiology: Inadeq. Food/Shae Intake Nutrition Problem/Etiology/Sym: increased nutrient needs related to COPD with exacerbation on BiPAP during the day. Energy Requirement: 1860 (kcal/day (23 kcal/kg)- [place] St Jeor RMR (1292) AF 1.2, IF 1.2) Protein Requirement: 82 (g protein/day (1.0 g/kg))) Fluid Requirement: 2470 (mL/day (30 mL/kg)) Diet Type: Diet as Tolerated FABIOLA/REG Nutrition Intervention: Cont diet as ordered, Encourage intake, HS snack, Between meal supplement Optional Order Time?: No Diet Comment To RSA: OFFER VANILLA NUTRITION SUPPLEMENT. Nutrition Monitoring & Eval Nutrition Goals: Eat 75-100% Meal Nutrition Follow-Up: Fair Intake RD Patient Assessment Time: [address] Assessment Type: RD Re-Assessment Patient Nutrition Acuity: 3-Mild Follow Up Date: March 24, 2018 Nutritional Comment: 03/13 Pt continues on diet as tolerated consuming 50-100% of all meals. Pt reports an increased appetite and that she has been increasing her intake and tyring to consume more protein with meals. Pt states that she has come to enjoy the vanilla ensure that she has been recieving. Title 1 Tutor encouraged pt to continue to drink ensure to increase protein intake to accommodate for increased needs for healing. Pt reported questions about decreasing her sodium intake. Title 1 Tutor explained to pt ways to decrease sodium intake. Continue to monitor pt progress and intake. 03/16 Pt on regular diet. Intake ranging 75- 100% of small to regular portions. Pt cont to accept nutr supplements. No new wt. Alb declined from 3 to 2.8. Will cont to offer nutr supplments and encourage intake. VICTORINO PETER Mar 16, 2018 15:15
[2018-03-16 16:10] VITALS: BP 142/67
[2018-03-16] MEDS: ACETAMINOPHEN 325 MG TAB PO PRN (20:52)
[2018-03-16] MEDS: ALPRAZolam 0.5 MG TAB PO SCH (20:52)
[2018-03-17] MEDS: LEVOTHYROXINE SOD 0.1 MG TAB PO SCH (06:04)
[2018-03-17] MEDS: SALMETEROL/FLUTIC 250/50 1 INH INH SCH ×2 (06:26→17:06)
[2018-03-17] MEDS: LEVALBUTEROL 1.25 MG/3 ML NEB NEB SCH ×4 (06:26→17:06)
[2018-03-17 07:50] VITALS: BP 141/61
[2018-03-17] MEDS: POTASSIUM CHL 10 MEQ TABCR PO SCH ×2 (08:59→17:00)
[2018-03-17] MEDS: predniSONE 20 MG TAB PO SCH (08:59)
[2018-03-17] MEDS: DILTIAZEM CD 120 MG CAPCR PO SCH ×2 (08:59→20:52)
[2018-03-17] MEDS: PANTOPRAZOLE SOD 40 MG TABEC PO SCH (08:59)
[2018-03-17] MEDS: FUROSEMIDE 20 MG TAB PO SCH (08:59)
[2018-03-17] MEDS: SPIRONOLACTONE 25 MG TAB PO SCH (08:59)
[2018-03-17] MEDS: MULTIVITAMINS TAB PO SCH (08:59)
[2018-03-17] MEDS: FLUoxetine HCL 20 MG CAP PO SCH (08:59)
[2018-03-17 16:30] VITALS: BP 139/65
[2018-03-17] MEDS: ACETAMINOPHEN 325 MG TAB PO PRN (20:52)
[2018-03-17] MEDS: ALPRAZolam 0.5 MG TAB PO SCH (20:52)
[2018-03-18] MEDS: SALMETEROL/FLUTIC 250/50 1 INH INH SCH (05:10)
[2018-03-18] MEDS: LEVALBUTEROL 1.25 MG/3 ML NEB NEB SCH ×4 (05:10→17:01)
[2018-03-18] MEDS: LEVOTHYROXINE SOD 0.1 MG TAB PO SCH (05:15)
[2018-03-18 08:30] VITALS: BP 142/57
[2018-03-18] MEDS: PANTOPRAZOLE SOD 40 MG TABEC PO SCH (08:49)
[2018-03-18] MEDS: FUROSEMIDE 20 MG TAB PO SCH (08:49)
[2018-03-18] MEDS: POTASSIUM CHL 10 MEQ TABCR PO SCH (08:49)
[2018-03-18] MEDS: SPIRONOLACTONE 25 MG TAB PO SCH (08:49)
[2018-03-18] MEDS: DILTIAZEM CD 120 MG CAPCR PO SCH ×2 (08:49→20:50)
[2018-03-18] MEDS: MULTIVITAMINS TAB PO SCH (08:49)
[2018-03-18] MEDS: FLUoxetine HCL 20 MG CAP PO SCH (08:49)
[2018-03-18] MEDS: predniSONE 20 MG TAB PO SCH (08:50)
--- NOTE | 2018-03-18 10:39 | Hospitalist Progress Note ---
Subjective Progress Notes Subjective The patient denies new concerns. Continues to work with PT/OT. Physical Exam Vital Signs Date Time Temp Pulse Resp B/P (MAP) Pulse Ox O2 Delivery O2 Flow Rate FiO2 03/18/18 09:47 82 18 03/18/18 09:42 94 Nasal Cannula 2.5 03/18/18 08:30 35.0 03/18/18 08:30 98.2 142/57 (85) General Appearance: Alert, Awake, No Acute Distress Neuro: No Gross deficits Eyes: PERRLA Cardiovascular: Regular Rate and Rhythm, Other (Trace to 1+ pitting edema.) GI: Soft and Non-Tender Integumentary: Skin Intact without Lesion / Mass Psych: Appropriate Mood & Affect Result Diagram: 03/16/1852403/16/18524 Assessment and Plan Problems: (1) Generalized weakness Status: Acute Assessment & Plan: Due to multiple medical issues (see below). The patient is working with PT and OT. (2) COPD with exacerbation Status: Acute Assessment & Plan: She does have a history of severe COPD and presented with increased shortness of breath. She was placed on treatment with nebulizers and IV Solu-Medrol. She was converted to oral prednisone on 2 occasions, but her wheezing worsened and she had to be placed back on IV steroids. She is now back on a tapering dose of oral prednisone. She is getting nebulizer treatments 4 times daily with as needed as well. CXR 03/08 continued to show bibasilar infiltrates. Her O2 requirements have decreased and she is currently on 2L per NC. She does wear BiPAP at HS. We started mobilizing, but she did have some difficulty tolerating and PT/OT recommended ongoing rehabilitative therapy. She was transferred to [facility]. (3) Right lower lobe pneumonia Status: Acute Assessment & Plan: Her chest x-ray revealed an infiltrate on the right. She was started on treatment with ceftriaxone and azithromycin. We converted her to oral cefdinir and azithromycin on 03/07. She completed therapy on 03/14/18. (4) Heart failure with preserved left ventricular function (HFpEF) Status: Resolved Assessment & Plan: She did have an elevated BNP. Her echocardiogram showed a preserved ejection fraction, but pulmonary hypertension. Her weights remain elevated above her baseline. We started her on scheduled oral Lasix initially and added spironolactone. She will need lab monitored periodically while on ECF. (5) Upper GI bleed Status: Acute Assessment & Plan: The patient has a history of PUD. She had about 450cc of dark blood from the NG on 02/28/18. Hgb did drop from 13.3 to 11. Her Lovenox was stopped and she was given 2 units of FFP. She was on Protonix and Carafate (we stopped Carafate). Hgb has been stable. (6) Hypokalemia Status: Acute Assessment & Plan: She is on oral replacement and added spironolactone. Her potassium level has increased to 4.4 on spironolactone and potassium replacement. Will decrease potassium to daily from bid and recheck labs on . (7) Supraventricular tachycardia Status: Acute Assessment & Plan: She was noted to be in a narrow complex tachycardia during her code event. She converted to sinus rhythm after receiving adenosine. She continued to have short runs of SVT in the ICU. She was placed on a diltiazem drip initially, but was converted to oral therapy on 03/04. Dr. Zelaya spoke with Cardiology (Dr. Gutiérrez) who agreed with the plan and recommended Cardiology follow up as an outpatient. He also recommended ASA, but because of her GI bleed, didn't think it was needed at this time (or Plavix). She continues to have some ectopy, but overall HR is improved. She is currently on max dose diltiazem ER 240mg BID. (8) Cardiorespiratory arrest Status: Acute Assessment & Plan: She did suffer a pulseless arrest on 02/28/18. This was likely secondary to SVT with rates over 200 by telemetry report. Echo shows an EF of 55%, and no wall motion abnormalities. The troponins were in the borderline area and relatively unchanged from admission. (9) Acute respiratory failure Status: Resolved Assessment & Plan: She was intubated on 02/28/18 during a code. She extubated herself on 03/02. She currently is wearing BiPAP intermittently. (10) Elevated troponin Assessment & Plan: She has had an elevated troponin, but these have not trended in a pattern consistent with infarction. (11) Hypertension Status: Chronic Assessment & Plan: She had been on diuretics, amlodipine and benazepril, which had been on hold. She has been started on diltiazem as above. We had restarted her benazepril, but then stopped again because of increasing creatinine and need for aggressive diuresis. (12) Anxiety Status: Chronic Assessment & Plan: She has been on chronic fluoxetine and alprazolam. (13) Depression Status: Chronic Assessment & Plan: She has been on the fluoxetine. (14) Hypothyroidism Status: Chronic Assessment & Plan: She is on chronic treatment with Synthroid. (15) CKD (chronic kidney disease), stage III Status: Chronic Assessment & Plan: Her current creatinine is 1.2. Her BUN is elevated likely due to diuresis. Will continue to monitor closely. Time Spent on Plan of Care: < 30 min JAVIER SALAS MD Mar 18, 2018 10:39
[2018-03-18 16:11] VITALS: BP 132/63
[2018-03-18] MEDS: SALMETEROL/FLUTIC 500/50 1 INH INH SCH (17:01)
[2018-03-18] MEDS: ACETAMINOPHEN 325 MG TAB PO PRN (20:50)
[2018-03-18] MEDS: ALPRAZolam 0.5 MG TAB PO SCH (20:50)
[2018-03-19] MEDS: ACETAMINOPHEN 325 MG TAB PO PRN ×2 (03:37→20:36)
[2018-03-19] MEDS: LEVALBUTEROL 1.25 MG/3 ML NEB NEB SCH ×3 (05:22→17:03)
[2018-03-19] MEDS: SALMETEROL/FLUTIC 500/50 1 INH INH SCH ×2 (05:23→17:03)
[2018-03-19] MEDS: LEVOTHYROXINE SOD 0.1 MG TAB PO SCH (05:37)
[2018-03-19 08:00] VITALS: BP 139/70
[2018-03-19] MEDS: FLUoxetine HCL 20 MG CAP PO SCH (09:31)
[2018-03-19] MEDS: POTASSIUM CHL 20 MEQ TABCR PO SCH (09:31)
[2018-03-19] MEDS: FUROSEMIDE 20 MG TAB PO SCH (09:32)
[2018-03-19] MEDS: predniSONE 10 MG TAB PO SCH (09:32)
[2018-03-19] MEDS: MULTIVITAMINS TAB PO SCH (09:33)
[2018-03-19] MEDS: PANTOPRAZOLE SOD 40 MG TABEC PO SCH (09:33)
[2018-03-19] MEDS: DILTIAZEM CD 120 MG CAPCR PO SCH ×2 (09:33→20:37)
[2018-03-19] MEDS: SPIRONOLACTONE 25 MG TAB PO SCH (09:33)
[2018-03-19 16:30] VITALS: BP 149/75
--- NOTE | 2018-03-19 17:02 | CONSULTATION ---
EVENT DATE: March 19, 2018 REASON FOR ADMISSION Reason for admission initially to medical floor was elevated Beta natriuretic peptide on February 26, 2018 prior to transfer to extended care unit on March 12, 2018. Patient was seen at approximately 1030 hours in the a.m. of March 19, 2018 for this dictation. REQUESTING PHYSICIAN Rossana Foster MD CONSULTING PHYSICIAN Bo Gallegos MD, Psychiatrist PRESENTING PROBLEM/CHIEF COMPLAINT "I should talk to someone about my anxiety concerning my ." HISTORY OF PRESENT ILLNESS This is a very pleasant 77-year-old female who was interviewed sitting upright in her chair in her room. Patient well groomed, making good eye contact. Patient had been visiting with nursing staff, interacting well. Patient greeted this provider appropriately, indicated an understanding of why the consult was called. The patient stated that maybe her son may have encouraged a psychiatric consult. Again patient was very pleasant, quickly explaining that she is feeling anxious over her 89-year-old who has been suffering from increasing dementia at home and is more and more difficult to take care of in the home. Patient up until her own hospital admission of February 26, 2018, had been the sole care provider of him in the home. Patient states that her had a stroke about 10 years ago following a knee replacement surgery, and this started his decline. Patient reports her is able to attend to his ADLs pretty readily at home, but she feels that he will sit in a chair excessively and read and does not have much interest or maybe ability to do many things, and does again report signs and symptoms of increasing dementia and that he is very forgetful. Patient herself reports that her recent stress of illness including bronchitis and pulmonary hypertension, and many other illnesses that currently she is being treated for (please see medical floor notes) has begun to take its toll on her mentally as well. She reports being surprised by the rather lengthy hospitalization that she is still in. Patient indicates that her sons, however, are very helpful with her in making future plans and decision making, and she continues to ponder long-term decisions that maybe she should move to a lower altitude in [place], [place] where her could live in an assisted living unit there, versus home health care here in [place] to help care for her . Other than frustration with current circumstances, which patient readily identifies, she denies any significant depressive symptoms currently. Denies any history of meir, psychosis, panic attacks, PTSD, or other symptoms of concern. MENTAL HEALTH HISTORY Patient originally was placed under psychiatric care at the time she was diagnosed with breast cancer in 1994, and she was placed on Xanax and Prozac at that time. Patient continues to use these, has been on the same dose for quite some time. Patient reports some underlying depression throughout her life, but falls shot of suicide attempts, but would come and go, but she does report that Prozac was helpful at the time as well as Xanax. Patient has a history of working as a nurse. and indicates an understanding of medications. Patient aware also that you can get tolerant to Xanax to where it is probably not that helpful anymore. Patient recognizes this, in that she says when she does not get her Xanax at night she cannot sleep. Much discussion took place regarding the use of benzodiazepines and patient's compromised respiratory system at this time as well. Patient indicated an understanding. FAMILY PSYCHIATRIC HISTORY Patient reports her father may have suffered from some under treated or undiagnosed depression at times. She herself again reported first experiencing depressive symptoms at times in high school. She denies any alcohol or drug use in the family that she knows of, and no suicides in the family. PAST MEDICAL HISTORY Significant again for breast cancer diagnosed in 1994, currently in remission. Patient suffering from COPD with acute exacerbation, right lower lobe pneumonia , heart failure with preserved left ventricular function, hypokalemia, recent upper GI bleed, supraventricular tachycardia and patient may have suffered cardiorespiratory arrest on February 28, 2018. She has had elevated troponins in the past, hypertension and hypothyroidism, as well as chronic kidney disease. Patient notably most recently prescribed prednisone and this may have some negative effects on her current mentation as well. Again, patient being a long- term nurse is aware of these possibilities. SOCIAL HISTORY Patient was born in [place], where she reported her father had gone to start a hospital. Father was believed to be a physician. Patient reports that after that she was raised primarily in [place]. Her parents were at the time of her and remained together until their deaths. Patient reports an "interesting" childhood overall. Denies any neglect or abuse of any kind. She is a middle child with five girls and two boys in the family. She graduated high school, graduated college, worked as an RN. No service. Patient has been to her current for 38 years. She had three children from a previous marriage and he as well had three children from a previous marriage. They currently live alone in their home here in [place]. LEGAL HISTORY She has no legal history. SUBSTANCE ABUSE HISTORY Patient is currently a smoker, but quit upon arrival into unit. She states she does want to quit smoking. She continues to have a glass of wine occasionally, but does not have any other substance abuse history. PHYSICAL EXAMINATION GENERAL: Please see medical floor notes. VITAL SIGNS: See the electronic record. LABORATORY DATA See the electronic record. MENTAL STATUS EXAMINATION GENERAL APPEARANCE, BEHAVIOR AND ATTITUDE: This is a very polite 77-year-old female in no acute medical distress, making good eye contact. No periods of tearfulness. No psychomotor agitation or retardation. No bizarre mannerisms or tics. SPEECH: Within normal limits, regular rate, rhythm volume and tone. MOOD: Described as concerned over decisions to be made in the future. AFFECT: Overall full and bright and mood congruent. THOUGHT PROCESSES: Appear goal directed, logical. No loose associations or flight of ideas. THOUGHT CONTENT: Free of auditory or visual hallucinations, ideas of reference , thought broadcastings, delusions, obsessions, compulsions. Patient adamantly denying suicidal or homicidal ideation. SENSORIUM: Clear. COGNITION: Alert and oriented to person, place, time and situation. MEMORY: Immediate, recent and remote estimated intact. INTELLIGENCE: Average based on interview. INSIGHT AND JUDGMENT: Considered grossly intact and appropriate for outpatient psychiatric care when patient's medical needs are complete. ASSESSMENT This is a very polite, cooperative 77-year-old female. 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 After lengthy discussion, patient verbalized an understanding of many examples of other medications that could be used to help her rest at night in the absence of benzodiazepines. Discussion took place regarding the potential increase of Prozac, which she has been on low dose for a long time. Also addressed was the potential of using Wellbutrin to possibly help with potential depression and smoking cessation in this patient who will be trying to quit cigarettes when she leaves the unit. Much time was spent addressing that the patient should consider an outpatient therapist as well, and information will be given to this patient concerning this when she discharged from the hospital in regard to her identifiable stressors in her life regarding potential placement of her outside the home and herself moving, and overcoming her current illness. After a long discussion, patient has decided not to change any medications at this time. She recognizes that prednisone may also be a factor in any current departure from her baseline mental state. DIAGNOSES PER DSM-V Adjustment disorder with depressed mood concerning her own illness, recognizing her own illness and the continued care of her elderly . Rule out substance-induced disorder secondary to prednisone, and patient does have a history of persisting depressive disorder and anxiety disorder in the past. PLAN 1. Will continue current medications for now. 2. Patient has this provider's phone number and she can call any time to discuss medications further. 3. It would be recommended that after prednisone taper is complete, patient should further evaluate need for medication changes with outpatient provider. 4. It is recommended that patient have an outpatient therapist upon discharge, and behavioral health therapist has given information on [facility] program that would be beneficial in evaluating the concerns of her this patient as well as the abilities of her within the home. 5. Will keep current medications as they are. Patient has an appropriate understanding of medications and was receptive to long discussion concerning them. 6. Any further questions, please do not hesitate to call [phone]. Thank you for this consult. NELLIE
[2018-03-19] MEDS: ALPRAZolam 0.5 MG TAB PO SCH (20:36)
[2018-03-20] MEDS: ACETAMINOPHEN 325 MG TAB PO PRN (02:47)
[2018-03-20] MEDS: LEVOTHYROXINE SOD 0.1 MG TAB PO SCH (05:19)
[2018-03-20] MEDS: LEVALBUTEROL 1.25 MG/3 ML NEB NEB SCH ×3 (05:39→17:18)
[2018-03-20] MEDS: SALMETEROL/FLUTIC 500/50 1 INH INH SCH ×2 (05:39→17:18)
[2018-03-20 08:00] VITALS: BP 151/64
[2018-03-20] MEDS: FUROSEMIDE 20 MG TAB PO SCH (09:43)
[2018-03-20] MEDS: MULTIVITAMINS TAB PO SCH (09:43)
[2018-03-20] MEDS: FLUoxetine HCL 20 MG CAP PO SCH (09:43)
[2018-03-20] MEDS: DILTIAZEM CD 120 MG CAPCR PO SCH ×2 (09:43→21:04)
[2018-03-20] MEDS: predniSONE 10 MG TAB PO SCH (09:43)
[2018-03-20] MEDS: PANTOPRAZOLE SOD 40 MG TABEC PO SCH (09:43)
[2018-03-20] MEDS: SPIRONOLACTONE 25 MG TAB PO SCH (09:43)
[2018-03-20] MEDS: POTASSIUM CHL 20 MEQ TABCR PO SCH (09:43)
[2018-03-20 17:00] VITALS: BP 140/66
[2018-03-20] MEDS: ALPRAZolam 0.5 MG TAB PO SCH (21:03)
[2018-03-21] MEDS: LEVALBUTEROL 1.25 MG/3 ML NEB NEB SCH ×3 (05:58→18:28)
[2018-03-21] MEDS: SALMETEROL/FLUTIC 500/50 1 INH INH SCH ×2 (05:58→18:28)
[2018-03-21] MEDS: LEVOTHYROXINE SOD 0.1 MG TAB PO SCH (06:09)
[2018-03-21 07:45] VITALS: BP 147/71
[2018-03-21 07:54] LABS: PLATELET COUNT, AUTOMATED 117 K/uL (150-450)
[2018-03-21] MEDS: DILTIAZEM CD 120 MG CAPCR PO SCH ×2 (08:23→21:26)
[2018-03-21] MEDS: PANTOPRAZOLE SOD 40 MG TABEC PO SCH (08:23)
[2018-03-21] MEDS: POTASSIUM CHL 20 MEQ TABCR PO SCH (08:23)
[2018-03-21] MEDS: FUROSEMIDE 20 MG TAB PO SCH (08:24)
[2018-03-21] MEDS: SPIRONOLACTONE 25 MG TAB PO SCH (08:24)
[2018-03-21] MEDS: FLUoxetine HCL 20 MG CAP PO SCH (08:24)
[2018-03-21] MEDS: predniSONE 10 MG TAB PO SCH (08:24)
[2018-03-21] MEDS: MULTIVITAMINS TAB PO SCH (08:24)
[2018-03-21 17:30] VITALS: BP 141/63
[2018-03-21] MEDS: ALPRAZolam 0.5 MG TAB PO SCH (21:26)
[2018-03-21] MEDS: ACETAMINOPHEN 325 MG TAB PO PRN (21:26)
[2018-03-22] MEDS: LEVALBUTEROL 1.25 MG/3 ML NEB NEB SCH ×3 (05:32→17:28)
[2018-03-22] MEDS: SALMETEROL/FLUTIC 500/50 1 INH INH SCH ×2 (05:33→17:28)
[2018-03-22] MEDS: LEVOTHYROXINE SOD 0.1 MG TAB PO SCH (05:54)
[2018-03-22 07:40] VITALS: BP 143/61
[2018-03-22] MEDS: FUROSEMIDE 20 MG TAB PO SCH (08:56)
[2018-03-22] MEDS: MULTIVITAMINS TAB PO SCH (08:56)
[2018-03-22] MEDS: DILTIAZEM CD 120 MG CAPCR PO SCH ×2 (08:56→21:09)
[2018-03-22] MEDS: FLUoxetine HCL 20 MG CAP PO SCH (08:56)
[2018-03-22] MEDS: POTASSIUM CHL 20 MEQ TABCR PO SCH (08:56)
[2018-03-22] MEDS: PANTOPRAZOLE SOD 40 MG TABEC PO SCH (08:57)
[2018-03-22] MEDS: SPIRONOLACTONE 25 MG TAB PO SCH (08:57)
[2018-03-22] MEDS: predniSONE 10 MG TAB PO SCH (08:57)
[2018-03-22 16:15] VITALS: BP 134/75
[2018-03-22] MEDS: ACETAMINOPHEN 325 MG TAB PO PRN (21:08)
[2018-03-22] MEDS: ALPRAZolam 0.5 MG TAB PO SCH (21:09)
[2018-03-23] MEDS: SALMETEROL/FLUTIC 500/50 1 INH INH SCH ×2 (05:47→17:09)
[2018-03-23] MEDS: LEVALBUTEROL 1.25 MG/3 ML NEB NEB SCH ×3 (05:47→17:09)
[2018-03-23] MEDS: LEVOTHYROXINE SOD 0.1 MG TAB PO SCH (05:59)
[2018-03-23 08:12] VITALS: BP 177/82
[2018-03-23] MEDS: FUROSEMIDE 20 MG TAB PO SCH (08:44)
[2018-03-23] MEDS: predniSONE 10 MG TAB PO SCH (08:44)
[2018-03-23] MEDS: PANTOPRAZOLE SOD 40 MG TABEC PO SCH (08:44)
[2018-03-23] MEDS: POTASSIUM CHL 20 MEQ TABCR PO SCH (08:44)
[2018-03-23] MEDS: SPIRONOLACTONE 25 MG TAB PO SCH (08:44)
[2018-03-23] MEDS: MULTIVITAMINS TAB PO SCH (08:44)
[2018-03-23] MEDS: DILTIAZEM CD 120 MG CAPCR PO SCH ×2 (08:44→20:25)
[2018-03-23] MEDS: FLUoxetine HCL 20 MG CAP PO SCH (08:45)
[2018-03-23 16:00] VITALS: BP 148/71
--- NOTE | 2018-03-23 16:32 | Medical Nutrition Therapy ---
Nutrition Anthropometrics Height (Inches): 64.00 Height (Calculated Centimeters: 162.610650 Weight (Pounds): 165 Weight (Calculated Kilograms): 74.843 BMI Calculated: 27.63 Bird Nutrition Score: Adequate Bird Nutrition Risk Score: 18 Dietary Referral Nutrition Risk Factors: Nutrition Risk Comment: Nutritional Diagnosis Nutritional Risk Acuity 3: COPD Unstable Past Medical History: HX of depression, anxiety, HTN, and GI bleed/ulcer, CKD- 3, COPD Nutritional Acuity: 3-Mild Nutrition Diagnosis: Increased Nutrient Needs Nutrition Etiology: Inadeq. Food/Shae Intake Nutrition Problem/Etiology/Sym: increased nutrient needs related to COPD with exacerbation on BiPAP during the day. Energy Requirement: 1860 (kcal/day (23 kcal/kg)- [place] St Jeor RMR (1292) AF 1.2, IF 1.2) Protein Requirement: 82 (g protein/day (1.0 g/kg))) Fluid Requirement: 2470 (mL/day (30 mL/kg)) Diet Type: Diet as Tolerated FABIOLA/REG Nutrition Intervention: Cont diet as ordered, Encourage intake, HS snack, Between meal supplement Optional Order Time?: No Additional Diet Restrictions: BRKFT AT 8:00 Diet Comment To RSA: OFFER VANILLA NUTRITION SUPPLEMENT. Nutrition Monitoring & Eval Nutrition Goals: Eat 75-100% Meal Nutrition Follow-Up: Good Intake RD Patient Assessment Time: [address] Assessment Type: RD Re-Assessment Patient Nutrition Acuity: 3-Mild Follow Up Date: March 31, 2018 Nutritional Comment: 03/13 Pt continues on diet as tolerated consuming 50-100% of all meals. Pt reports an increased appetite and that she has been increasing her intake and tyring to consume more protein with meals. Pt states that she has come to enjoy the vanilla ensure that she has been recieving. Answering Service Operator encouraged pt to continue to drink ensure to increase protein intake to accommodate for increased needs for healing. Pt reported questions about decreasing her sodium intake. Answering Service Operator explained to pt ways to decrease sodium intake. Continue to monitor pt progress and intake. RAO 03/16 Pt on regular diet. Intake ranging 75- 100% of small to regular portions. Pt cont to accept nutr supplements. No new wt. Alb declined from 3 to 2.8. Will cont to offer nutr supplments and encourage intake. BK 03/23 Pt cont on regular diet. Eating 75- 100%. Wt has fluctuated. Pt weighted 161# on admission on med unit. Wt did increase wot 190# with edema reported and prednisone use. Wt of 165# has declined back almost to admit wt. Pt cont 1+ edema to legs. Anticipate further wt loss when edema resolved. VICTORINO VÁSQUEZ Mar 23, 2018 16:32
[2018-03-23] MEDS: ACETAMINOPHEN 325 MG TAB PO PRN (20:25)
[2018-03-23] MEDS: ALPRAZolam 0.5 MG TAB PO SCH (20:25)
[2018-03-24] MEDS: LEVALBUTEROL 1.25 MG/3 ML NEB NEB SCH ×3 (05:12→16:52)
[2018-03-24] MEDS: SALMETEROL/FLUTIC 500/50 1 INH INH SCH ×2 (05:12→16:51)
[2018-03-24] MEDS: LEVOTHYROXINE SOD 0.1 MG TAB PO SCH (06:09)
[2018-03-24 08:56] VITALS: BP 142/64
[2018-03-24] MEDS: POTASSIUM CHL 20 MEQ TABCR PO SCH (09:39)
[2018-03-24] MEDS: PANTOPRAZOLE SOD 40 MG TABEC PO SCH (09:39)
[2018-03-24] MEDS: MULTIVITAMINS TAB PO SCH (09:40)
[2018-03-24] MEDS: FLUoxetine HCL 20 MG CAP PO SCH (09:40)
[2018-03-24] MEDS: DILTIAZEM CD 120 MG CAPCR PO SCH ×2 (09:40→20:47)
[2018-03-24] MEDS: SPIRONOLACTONE 25 MG TAB PO SCH (09:40)
[2018-03-24] MEDS: FUROSEMIDE 20 MG TAB PO SCH (09:40)
[2018-03-24] MEDS: predniSONE 10 MG TAB PO SCH (09:40)
[2018-03-24 17:40] VITALS: BP 143/46
[2018-03-24] MEDS: ALPRAZolam 0.5 MG TAB PO SCH (20:47)
[2018-03-24] MEDS: ACETAMINOPHEN 325 MG TAB PO PRN (20:47)
[2018-03-25] MEDS: SALMETEROL/FLUTIC 500/50 1 INH INH SCH ×2 (05:13→17:08)
[2018-03-25] MEDS: LEVALBUTEROL 1.25 MG/3 ML NEB NEB SCH ×2 (05:13→11:30)
[2018-03-25] MEDS: LEVOTHYROXINE SOD 0.1 MG TAB PO SCH (05:21)
[2018-03-25 06:06] LABS: PLATELET COUNT, AUTOMATED 126 K/uL (150-450)
[2018-03-25 09:20] VITALS: BP 144/54
[2018-03-25] MEDS: POTASSIUM CHL 20 MEQ TABCR PO SCH (09:23)
[2018-03-25] MEDS: PANTOPRAZOLE SOD 40 MG TABEC PO SCH (09:23)
[2018-03-25] MEDS: DILTIAZEM CD 120 MG CAPCR PO SCH ×2 (09:23→20:56)
[2018-03-25] MEDS: SPIRONOLACTONE 25 MG TAB PO SCH (09:24)
[2018-03-25] MEDS: FUROSEMIDE 20 MG TAB PO SCH (09:24)
[2018-03-25] MEDS: predniSONE 10 MG TAB PO SCH (09:24)
[2018-03-25] MEDS: MULTIVITAMINS TAB PO SCH (09:24)
[2018-03-25] MEDS: FLUoxetine HCL 20 MG CAP PO SCH (09:24)
[2018-03-25] MEDS ORDERED: POTA20TA94 PO (15:46)
[2018-03-25] MEDS ORDERED: FLUT1DIS29 INH (15:46)
[2018-03-25] MEDS ORDERED: PRED-1 PO (15:46)
[2018-03-25] MEDS ORDERED: PANT40TA65 PO (15:52)
[2018-03-25] MEDS ORDERED: SPIR25TA78 PO (15:53)
[2018-03-25] MEDS ORDERED: LEVA15HF INH (15:57)
--- NOTE | 2018-03-25 16:17 | Hospitalist Depart ---
Discharge Summary Reason for Hosp/Final Diag: (1) Generalized weakness Status: Acute Hospital Course & Plan: The patient developed generalized weakness due to multiple medical issues (see below). The patient was transferred to [facility] to work with PT and OT. She improved and was able to discharge to home with ongoing PT and OT through Home Health. (2) COPD with exacerbation Status: Acute Hospital Course & Plan: The patient has a history of severe COPD and presented with increased shortness of breath. See previous inpatient admission for details. She was initially on IV steroids and then switched to a tapering dose of oral prednisone. She was placed on nebulizer (Xopenex) treatments 3 times daily with prn treatments as well. CXR performed on 03/08 continued to show bibasilar infiltrates. Her O2 requirements decreased and she returned to her baseline O2 requirement of 2L per NC. She did wear BiPAP at HS while hospitalized and will need a split night sleep study shortly after discharge. (3) Right lower lobe pneumonia Status: Acute Hospital Course & Plan: Chest x-ray revealed an infiltrate on the right. She was started on treatment with ceftriaxone and azithromycin. She was then converted to oral cefdinir and azithromycin on 03/07. She completed therapy on . (4) Heart failure with preserved left ventricular function (HFpEF) Status: Resolved Hospital Course & Plan: She did have an elevated BNP. Her echocardiogram showed a preserved ejection fraction, but pulmonary hypertension. Her weights remain elevated above her baseline. She was started on scheduled oral Lasix initially and spironolactone was added. Her weight and edema were gradually improving at the time of discharge. (5) Upper GI bleed Status: Acute Hospital Course & Plan: The patient has a history of PUD. She had about 450cc of dark blood from the NG on 02/28/18. Hgb did drop from 13.3 to 11. Her Lovenox was stopped and she was given 2 units of FFP. She was placed on Protonix and Carafate. Carafate was later stopped. Hgb remained stable. (6) Hypokalemia Status: Acute Hospital Course & Plan: She was placed on oral replacement and spironolactone was added. Her potassium level normalized on spironolactone and potassium replacement. (7) Supraventricular tachycardia Status: Acute Hospital Course & Plan: The patient had a pulseless episode while on the medical floor. She was noted to be in a narrow complex tachycardia on the medical floor during her code event. She converted to sinus rhythm after receiving adenosine. She continued to have short runs of SVT while in the ICU. She was placed on a diltiazem drip initially, but was converted to oral therapy on 03/04. Cardiology was consulted and agreed with diltiazem therapy and also recommended ASA. Because of GI bleeding this was not started. She continued to have some ectopy, but overall her heart rate improved. She will be discharged on maximum dose diltiazem ER 240mg BID. She will follow up with cardiology as an outpatient. (8) Cardiorespiratory arrest Status: Acute Hospital Course & Plan: She did suffer a pulseless arrest on 02/28/18. This was likely secondary to SVT with rates over 200 by telemetry report. Echo showed an EF of 55%, and no wall motion abnormalities. The troponins were in the borderline area and relatively unchanged from admission. (9) Acute respiratory failure Status: Resolved Hospital Course & Plan: She was intubated on 02/28/18 during a code. She extubated herself on 03/02. She continued to wear BiPAP intermittently with good result and will have a sleep study after discharge. (10) Elevated troponin Hospital Course & Plan: She has had an elevated troponin, but did not have a pattern consistent with infarction. (11) Hypertension Status: Chronic Hospital Course & Plan: She had been on diuretics, amlodipine and benazepril. She was started on diltiazem as above. Her benazepril was stopped but her diuretics were restarted. Her BP has been under good control with diuretics and diltiazem (see above). (12) Anxiety Status: Chronic Hospital Course & Plan: She was continued on fluoxetine and alprazolam. (13) Depression Status: Chronic Hospital Course & Plan: She was continued on the fluoxetine. (14) Hypothyroidism Status: Chronic Hospital Course & Plan: She was continued on chronic treatment with Synthroid. (15) CKD (chronic kidney disease), stage III Status: Chronic Hospital Course & Plan: Her current creatinine on 03/25/18 was 1.2. Her BUN was elevated likely due to diuresis. 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 Follow Up For: ADL Assistance Discharge Code Status: Full Code Time Spent: < 30 min Discharge Instructions Home Meds Active Scripts Levalbuterol Tartrate (XOPENEX HFA) 15 Gm Hfa.aer.ad, 2 PUFF INH TIDR, #1 INHALER 2 Refills Prov:JAVIER SALAS MD 03/25/18 Spironolactone (SPIRONOLACTONE) 25 Mg Tablet, 25 MG PO QDAY, #30 TAB 2 Refills Prov:JAVIER SAALS MD 03/25/18 Pantoprazole Sodium (PANTOPRAZOLE SODIUM) 40 Mg Tablet.dr, 40 MG PO QDAY, #30 TAB 2 Refills Prov:JAVIER SALAS MD 03/25/18 Prednisone 10 Mg Tab (PREDNISONE 10 MG TAB) 10 Mg Tablet, 10 MG PO QDAY for 4 Days, #4 TAB Prov:JAVIER SALAS MD 03/25/18 Potassium Chloride (POTASSIUM CHLORIDE) 20 Meq Tab.er.prt, 20 MEQ PO DAILY, #30 TAB 2 Refills Prov:JAVIER SALAS MD 03/25/18 Fluticasone/Salmeterol (ADVAIR 500-50 DISKUS) 1 Each Disk.w.dev, 1 EACH INH BIDR , #1 DISK Prov:JAVIER SALAS MD 03/25/18 Spironolactone (SPIRONOLACTONE) 25 Mg Tablet, 25 MG PO QDAY for 30 Days, TAB Prov:TAM SALAS MD 03/12/18 Pantoprazole Sodium (PANTOPRAZOLE SODIUM) 40 Mg Tablet.dr, 40 MG PO QDAY for 30 Days, TAB Prov:TAM SALAS MD 03/12/18 Furosemide (FUROSEMIDE) 20 Mg Tablet, 20 MG PO QDAY for 30 Days, TAB Prov:TAM SALAS MD 03/12/18 Diltiazem Hcl (DILTIAZEM 24HR CD) 120 Mg Cap.er.24h, 240 MG PO BID for 30 Days, CAP Prov:TAM SALAS MD 03/12/18 Alprazolam 0.5 Mg Tab (ALPRAZOLAM 0.5 MG TAB) 0.5 Mg Tablet, 0.5 MG PO HS for 30 Days, TAB Prov:TAM SALAS MD 03/12/18 Acetaminophen (MAPAP) 325 Mg Tablet, 650 MG PO Q6H Y for FEVER/PAIN for 30 Days , TAB Prov:TAM SALAS MD 03/12/18 Fluoxetine Hcl (PROZAC) 20 Mg Capsule, 20 MG PO QDAY, #90 CAPSULE 1 Refill Prov:SHANIAK TERRAZAS MD 02/03/18 Reported Medications Vit A/Vit C/Vit E/Zinc/Copper (PRESERVISION AREDS SOFTGEL) 1 Each Capsule, 1 EACH PO DAILY, CAPSULE 02/26/18 Oxygen (OXYGEN) Inha, 2 L INH, L 11/21/17 Levothyroxine Sodium (LEVOTHYROXINE SODIUM) 100 Mcg Tablet, 100 MCG PO QDAY, TAB 06/04/17 Discontinued Reported Medications Diltiazem HCl (Diltiazem 24Hr Cd) 300 Mg Cap.er.24h, PO DAILY for 30 Days, 2 Refills 03/27/18 Triamterene/Hydrochlorothiazid (TRIAMTERENE-HCTZ 37.5-25 MG TB) 1 Each Tablet, 1 EACH PO DAILY 03/13/18 Discontinued Scripts Prednisone (PREDNISONE) 20 Mg Tablet, 40 MG PO QDAY for 7 Days, TAB Prov:TAM SALAS MD 03/12/18 Potassium Chloride (KLOR-CON 10) 10 Meq Tablet.er, 20 MEQ PO BIDBS for 10 Days, TAB Prov:TAM SALAS MD 03/12/18 Cefdinir 300 Mg Cap (OMNICEF 300 MG CAP (OR EQUIV)) 300 Mg Cap, 300 MG PO BID for 2 Days, CAP Prov:TAM SALAS MD 03/12/18 Fluticasone/Salmeterol (ADVAIR 250-50 DISKUS) 1 Each Disk.w.dev, 1 PUFF IH BID, #3 INH 3 Refills Prov:SHANIKA TERRAZAS MD 01/05/18 Follow up Referrals: Internal Medicine - In One Week @ [facility]-Primary with Shanika Terrazas Md Diet: Regular Activity: As Tolerated Special Instructions: The patient is to follow up with cardiology, first available apppointment, after discharge. Copies to: SHANIKA TERRAZAS MD; ELISA OLIVEIRA MD Venous Thromboembolism Antithrombotics Is Pt On Any Antithrombotics?: No [id number] Certification Face to Face Home Health Certification Institutional Provider conducted the [id number]-ax-prmu encounter. Electronic Undersigning Physician Certifies Home Health. I certify that the patient has been under my care and that I had a hqii-by-gemc encounter that meets the physician [id number]-ya-oodi encounter requirements with this patient. This patient is home-bound due to safety issues and continues to require assistance with ADL's. I certify that based on my findings, that Nursing, Aides and the following Home Health services are medically necessary: PT/OT Medical Necessity: Nursing, Rehab Date Face to Face Conducted: March 25, 2018 JAVIER SALAS MD March 25, 2018 16:17
--- NOTE | 2018-03-25 16:27 | Hospitalist Progress Note ---
Subjective Progress Notes Subjective Feeling better overall. No new concerns. Getting stronger. Physical Exam Vital Signs Date Time Temp Pulse Resp B/P (MAP) Pulse Ox O2 Delivery O2 Flow Rate FiO2 03/25/18 11:39 71 16 03/25/18 11:30 94 Nasal Cannula 2.0 03/25/18 11:14 35.0 03/25/18 09:20 98.2 144/54 (84) Intake and Output 03/26/18 07:00 Intake Total 720 ml Balance 720 ml Intake Oral 720 ml # Voids 1 General Appearance: Alert, Awake, No Acute Distress Neuro: No Gross deficits Cardiovascular: Regular Rate and Rhythm Respiratory: Other (Markedly decreased BS throughout without rales, rhonchi or wheezing.) Extremities: Warm, Perfused, Other (1+ edema) Integumentary: Skin Intact without Lesion / Mass Psych: Appropriate Mood & Affect Result Diagram: 03/25/1853203/25/18532 Assessment and Plan Problems: (1) Generalized weakness Status: Acute Assessment & Plan: The patient developed generalized weakness due to multiple medical issues (see below). The patient was transferred to [facility] to work with PT and OT. She improved and likely will be able to discharge to home with ongoing PT and OT through Home Health at the end of the week. (2) COPD with exacerbation Status: Acute Assessment & Plan: The patient has a history of severe COPD and presented with increased shortness of breath. See previous inpatient admission for details. She was initially on IV steroids and then switched to a tapering dose of oral prednisone. She was placed on nebulizer (Xopenex) treatments 3 times daily with prn treatments as well. CXR performed on 03/08 continued to show bibasilar infiltrates. Her O2 requirements decreased and she returned to her baseline O2 requirement of 2L per NC. She has been wearing BiPAP at while hospitalized and will need a split night sleep study shortly after discharge. Will switch from Xopenex nebs to Xopenex inhaler tonight to see how she does. (3) Right lower lobe pneumonia Status: Acute Assessment & Plan: Chest x-ray revealed an infiltrate on the right. She was started on treatment with ceftriaxone and azithromycin. She was then converted to oral cefdinir and azithromycin on 03/07. She completed therapy on 03/14/18. (4) Heart failure with preserved left ventricular function (HFpEF) Status: Resolved Assessment & Plan: She did have an elevated BNP. Her echocardiogram showed a preserved ejection fraction, but pulmonary hypertension. Her weights remain elevated above her baseline. She was started on scheduled oral Lasix initially and spironolactone was added. Her weight and edema were gradually improving at the time of discharge. (5) Upper GI bleed Status: Acute Assessment & Plan: The patient has a history of PUD. She had about 450cc of dark blood from the NG on 02/28/18. Hgb did drop from 13.3 to 11. Her Lovenox was stopped and she was given 2 units of FFP. She was placed on Protonix and Carafate. Carafate was later stopped. Hgb remained stable. (6) Hypokalemia Status: Acute Assessment & Plan: She was placed on oral replacement and spironolactone was added. Her potassium level normalized on spironolactone and potassium replacement. (7) Supraventricular tachycardia Status: Acute Assessment & Plan: The patient had a pulseless episode while on the medical floor. She was noted to be in a narrow complex tachycardia on the medical floor during her code event. She converted to sinus rhythm after receiving adenosine. She continued to have short runs of SVT while in the ICU. She was placed on a diltiazem drip initially, but was converted to oral therapy on . Cardiology was consulted and agreed with diltiazem therapy and also recommended ASA. Because of GI bleeding this was not started. She continued to have some ectopy, but overall her heart rate improved. She will be discharged on maximum dose diltiazem ER 240mg BID. She will follow up with cardiology as an outpatient. (8) Cardiorespiratory arrest Status: Acute Assessment & Plan: She did suffer a pulseless arrest on 02/28/18. This was likely secondary to SVT with rates over 200 by telemetry report. Echo showed an EF of 55%, and no wall motion abnormalities. The troponins were in the borderline area and relatively unchanged from admission. (9) Acute respiratory failure Status: Resolved Assessment & Plan: She was intubated on 02/28/18 during a code. She extubated herself on 03/02. She continued to wear BiPAP intermittently with good result and will have a sleep study after discharge. (10) Elevated troponin Assessment & Plan: She has had an elevated troponin, but did not have a pattern consistent with infarction. (11) Hypertension Status: Chronic Assessment & Plan: She had been on diuretics, amlodipine and benazepril. She was started on diltiazem as above. Her benazepril was stopped but her diuretics were restarted. Her BP has been under good control with diuretics and diltiazem (see above). (12) Anxiety Status: Chronic Assessment & Plan: She was continued on fluoxetine and alprazolam. (13) Depression Status: Chronic Assessment & Plan: She was continued on the fluoxetine. (14) Hypothyroidism Status: Chronic Assessment & Plan: She was continued on chronic treatment with Synthroid. (15) CKD (chronic kidney disease), stage III Status: Chronic Assessment & Plan: Her current creatinine on 03/25/18 was 1.2. Her BUN was elevated likely due to diuresis. Time Spent on Plan of Care: < 30 min JAVIER SALAS MD March 25, 2018 16:27
[2018-03-25 16:50] VITALS: BP 148/65
[2018-03-25] MEDS: LEVALBUTEROL 15 GM INH INH SCH (17:07)
[2018-03-25] MEDS: ALPRAZolam 0.5 MG TAB PO SCH (20:56)
[2018-03-25] MEDS: ACETAMINOPHEN 325 MG TAB PO PRN (20:56)
[2018-03-26] MEDS: SALMETEROL/FLUTIC 500/50 1 INH INH SCH ×2 (05:38→17:12)
[2018-03-26] MEDS: LEVALBUTEROL 15 GM INH INH SCH ×3 (05:38→17:13)
[2018-03-26] MEDS: LEVOTHYROXINE SOD 0.1 MG TAB PO SCH (05:43)
[2018-03-26 07:30] VITALS: BP 150/57
[2018-03-26] MEDS: DILTIAZEM CD 120 MG CAPCR PO SCH ×2 (09:48→21:16)
[2018-03-26] MEDS: PANTOPRAZOLE SOD 40 MG TABEC PO SCH (09:48)
[2018-03-26] MEDS: POTASSIUM CHL 20 MEQ TABCR PO SCH (09:49)
[2018-03-26] MEDS: MULTIVITAMINS TAB PO SCH (09:49)
[2018-03-26] MEDS: SPIRONOLACTONE 25 MG TAB PO SCH (09:49)
[2018-03-26] MEDS: predniSONE 10 MG TAB PO SCH (09:49)
[2018-03-26] MEDS: FLUoxetine HCL 20 MG CAP PO SCH (09:49)
[2018-03-26] MEDS: FUROSEMIDE 20 MG TAB PO SCH (09:49)
[2018-03-26 16:00] VITALS: BP 137/68
[2018-03-26] MEDS: ALPRAZolam 0.5 MG TAB PO SCH (21:16)
[2018-03-26] MEDS: ACETAMINOPHEN 325 MG TAB PO PRN (21:16)
[2018-03-27] MEDS: LEVOTHYROXINE SOD 0.1 MG TAB PO SCH (05:30)
[2018-03-27] MEDS: LEVALBUTEROL 15 GM INH INH SCH ×2 (05:54→11:11)
[2018-03-27] MEDS: SALMETEROL/FLUTIC 500/50 1 INH INH SCH (05:54)
[2018-03-27 07:30] VITALS: BP 149/64
--- NOTE | 2018-03-27 09:01 | OT ECF NOTE ---
Type of Note: Discharge Note Primary Medical Diagnosis: Generalized weakness s/p extensive hospital admission for COPD exacerbation, Pneumonia, Acute resp. failure Occupational Therapy Evaluation Date: 03/12/18 SUBJECTIVE: Prior Hospitalization: [facility] 02/26/18 thru 03/12 Prior Level of Function: Independent with all ADLs/IADLs. Pt is the primary caregiver for her spouse (Jacobo) who was dementia. Prior Living Status: Single level house, Living with family Community Services: Support adequate, No known needs Home Accessibility: All needs on one level Walk-in shower Tub/shower combination Equipment Owned: Shower chair, 4WW, portable O2 concentrator, Raised toilet seat with arms Medical Complications/Past Medical History: COPD, CKD, Hyperlipidemia, Depression, Anxiety, HT, Hx breast cancer. Please refer to EMR for extensive details Psychosocial Support: Supportive spouse and supportive sons who do not live in [place] Pain Scale (0-10): None reported at time of evaluation OBJECTIVE: Strength: MMT: Right Left Shoulder Flexion WFL WFL Elbow Flexion WFL WFL Wrist Extension WFL WFL Video Tape Transferrer WFL WFL (5= normal, 4= good, 3= fair, 2= poor, 1= trace) ROM: Both upper extremities, WFL Sensation: Intact, No concerns Functional Transfer: Assistive Device: 4WW Transfer Ability: Mod (I). 2L O2 throughout activity. ADL: Upper body dressing: Assistive device: None Upper body dressing ability: Independent Lower body dressing: Assistive device: None Lower body dressing ability: Independent Toileting: Assistive device: Raised toilet seat with arms Toileting ability: Modified Independent Grooming/hygiene: Assistive device: None Grooming ability: Independent Bathing: Assistive device: Shower chair Bathing ability: Independent Standardized Assessment: Esme Index of Activities of Daily Livin/20 upon initial evaluation (). 20/20 at discharge (03/27/18). ASSESSMENT: "Arabella" presented to F with decreased activity tolerance for engagement in ADLs/IADLs. She has met all skilled OT goals. Problem List/Current Limitations: Decreased activity tolerance Decreased strength Decreased ROM Generalized weakness Shortness of breath Short Term Goals: 1) Pt will be SBA grooming/hygiene. GOAL MET. 2) Pt will be SBA toilet task. GOAL MET. 3) Pt will be SBA UB/LB dressing. GOAL MET. 4) Pt will be SBA shower task. GOAL MET. 5) Pt Esme Index of ADLs score will increase by 2 points. GOAL MET. 6) Pt will be educated on energy conservation and appropriate AE needs. GOAL MET. Color Control Supervisor Goals: Return home with services Patient Goals: Return home Rehabilitation Prognosis: Good Barriers to Discharge: Medical history, current everyday smoker PLAN: The patient will discharge home with services and assist from family. Pt presents with no further questions/concerns for OT at time of discharge. Thank you for this referral. If you have any questions, concerns, or comments about this report or plan, please contact me at . Tatiana Loera MS, OTR/L Occupational Therapist NELLIE
[2018-03-27] MEDS: POTASSIUM CHL 20 MEQ TABCR PO SCH (09:12)
[2018-03-27] MEDS: PANTOPRAZOLE SOD 40 MG TABEC PO SCH (09:12)
[2018-03-27] MEDS: FLUoxetine HCL 20 MG CAP PO SCH (09:12)
[2018-03-27] MEDS: DILTIAZEM CD 120 MG CAPCR PO SCH (09:12)
[2018-03-27] MEDS: MULTIVITAMINS TAB PO SCH (09:12)
[2018-03-27] MEDS: FUROSEMIDE 20 MG TAB PO SCH (09:12)
[2018-03-27] MEDS: SPIRONOLACTONE 25 MG TAB PO SCH (09:12)
[2018-03-27] MEDS: predniSONE 10 MG TAB PO SCH (09:12)
[2018-03-27] MEDS ORDERED: [UNRECOGNIZED DRUG - CODE] PO (10:11)
[2018-03-28] MEDS ORDERED: predniSONE 10 MG TAB PO SCH (09:00)
== END 2018-03-27 11:40 | disposition home or self-care (01) | DRG 190 ==
LOC: ECF 13:20
PROVIDERS: ADMIT Internal Medicine; ATTEND Internal Medicine
DX: J44.1 Chronic obstructive pulmonary disease with (acute) exacerbation (principal); J18.1 Lobar pneumonia, unspecified organism; I50.30 Unspecified diastolic (congestive) heart failure; I13.0 Hypertensive heart and chronic kidney disease with heart failure and stage 1 through stage 4 chronic kidney disease, or unspecified chronic kidney disease; J44.0 Chronic obstructive pulmonary disease with (acute) lower respiratory infection; I27.20 Pulmonary hypertension, unspecified; E87.6 Hypokalemia; F41.8 Other specified anxiety disorders; E03.9 Hypothyroidism, unspecified; N18.3 Chronic kidney disease, stage 3 (moderate); F17.210 Nicotine dependence, cigarettes, uncomplicated; F43.21 Adjustment disorder with depressed mood; E21.3 Hyperparathyroidism, unspecified; Z88.8 Allergy status to other drugs, medicaments and biological substances; Z85.3 Personal history of malignant neoplasm of breast; Z90.710 Acquired absence of both cervix and uterus; Z92.21 Personal history of antineoplastic chemotherapy; Z99.81 Dependence on supplemental oxygen
CPT/HCPCS: 36415; 36600; 82040; 82247; 82310; 82374; 82435; 82565; 82803; 82947; 84075; 84132; 84155; 84295; 84450; 84460; 84520; 85025; 94640; 94660; 94667; 94668; 97161; 97166; J7512

== ENCOUNTER → 2018-04-14 | Outpatient (CLI) | payer MEDICARE, OTHER ==
[2018-03-01 12:20] VITALS: BMI 27.6
[~2018-04-14] MED LIST changes: +FLUT1DIS29 INH; +LEVA15HF INH; +POTA20TA94 PO; +[UNRECOGNIZED DRUG - CODE] PO
--- NOTE | 2018-04-14 11:19 | RADIOLOGY IMAGING REPORT ---
FACILITY: [facility] PATIENT NAME: Leigh De La Rosa : 1940 MR: [id number] V: [id number] EXAM DATE: ORDERING PHYSICIAN: GRACE TERRAZAS TECHNOLOGIST: Location: [facility] [place] Patient: Leigh De La Rosa : 1940 Visit/Account:[id number] Date of Sevice: 04/14/2018 CHEST PA AND LAT HISTORY: Evaluate for pneumonia. Back pain. COMPARISON: Chest x-ray March 08, 2018. FINDINGS: Cardiomediastinal contours: The heart is minimally enlarged. Lungs and pleura: Comparison the previous study shows that there has been near-complete clearing of t he previously noted bilateral pleural effusions. There may be a small amount residual pleural fluid on the right side, but there is no infiltrate. Bones/soft tissues: Osteopenia without fracture. Chest wall: Pericapsular calcification of the left breast prosthesis. IMPRESSION: 1. No findings of an infiltrate. 2. Near complete clearing of the previous noted bilateral pleural effusions. There is a small amoun t of residual pleural fluid on the right side. 3. Left breast prosthesis with pericapsular calcification. Report Dictated By: Rocco Guillermo MD at 04/14/2018 11:13 AM Report E-Signed By: Rocco Guillermo MD at 04/14/2018 11:16 AM WSN:CESAR
== END ==
LOC: RAD 09:50
PROVIDERS: ATTEND Emergency Medicine
DX: I51.7 Cardiomegaly (principal); J90 Pleural effusion, not elsewhere classified; M85.88 Other specified disorders of bone density and structure, other site; M25.812 Other specified joint disorders, left shoulder; Z98.82 Breast implant status
CPT/HCPCS: 36415; 71046; 82310; 82374; 82435; 82565; 82607; 82746; 82947; 83540; 83550; 83880; 84132; 84295; 84443; 84520

== ENCOUNTER → 2018-04-17 | Outpatient (CLI) | payer MEDICARE, OTHER ==
[2018-03-01 12:20] VITALS: BMI 27.6
--- NOTE | 2018-04-21 06:31 | RT HOLTER TEST ---
FACILITY: [facility] PATIENT NAME: LIEN FRANKLIN : [id number] MR: [id number] V: [id number] EXAM DATE: ORDERING PHYSICIAN: JANETTE BIRMINGHAM TECHNOLOGIST: MARIETTA Hook-up date: 2018-04-17 13:22:00 Duration: 47:59:00 Test Indications: SVT Medications: 063678 QRS complexes 1545 Ventricular ectopics which represent <1 % of total QRS comp. 536 Supraventricular ectopics which represent <1 % of total QRS comp. * Paced QRS complexes which represent % of total QRS comp. VENTRICULAR ECTOPY 1467 Isolated 0 Bigeminal Cycles 37 Couplets 1 Runs 4 Beats in Runs 4 Beats LONGEST at 91 BPM at 13:56:02 2018-04-17 4 Beats FASTEST at 91 BPM at 13:56:02 2018-04-17 SUPRAVENTRICULAR ECTOPY 483 Isolated 17 Couplets 6 Runs 19 Beats in Runs 4 Beats LONGEST at 151 BPM at 12:00:35 2018-04-18 4 Beats FASTEST at 151 BPM at 12:00:35 2018-04-18 HEART RATES 63 MIN at 04:23:39 2018-04-18 83 AVG 154 MAX at 11:18:37 2018-04-19 LONGEST RR 1.296 secs at 06:31:19 2018-04-18 S-T LEVELS Channel 1 -12.800 mm MIN at 13:22:00 2018-04-17 -12.800 mm MAX at 13:22:00 2018-04-17 Channel 2 -12.800 mm MIN at 13:22:00 2018-04-17 -12.800 mm MAX at 13:22:00 2018-04-17 Channel 3 -12.800 mm MIN at 13:22:00 2018-04-17 -12.800 mm MAX at 13:22:00 2018-04-17 Maximum heart rate was sinus tachycardia at 154 beats per minute (BPM). Minimum heart rate was normal sinus rhythm at 63 BPM. Average heart rate was 83 BPM. There were runs of atrial flutter with variable block noted as well. There were 483 isolated PACs, one 4 beat run and 17 couplets. There were 1467 isolated PVCs, 37 couplets and 2 runs of trigeminy. Confirmed by JAVIER VENEGAS ([id number]) on 04/21/2018 6:29:37 AM Referred By: Overread By: JAVIER VENEGAS
== END ==
LOC: RESP 02:59
PROVIDERS: ATTEND Internal Medicine
DX: I47.1 Supraventricular tachycardia (principal)
CPT/HCPCS: 93225